=== PATIENT | male | born 1955 | race Caucasian/White ===

== ENCOUNTER 2020-07-10 15:30 | Outpatient (CLI) | payer OTHER, SELFPAY ==
[2020-07-10 15:54] LABS: Basophils Absolute Auto 0.1 K/mm3 (0.0-0.1); Basophils Percent Auto 1.2 % (0.2-1.2); Eosinophils Absolute Auto 0.3 K/mm3 (0-0.3); Eosinophils Percent Auto 4.6 % (0-4.4); Hematocrit 47.4 % (42.0-52.0); Hemoglobin 16.2 g/dL (14.0-18.0); Immature Granulocyte Absolute 0.02 K/mm3 (0.00-0.031); Immature Granulocyte Percent A 0.3 % (0-0.5); Lymphocytes Absolute Auto 1.87 K/mm3 (0.9-3.2); Lymphocytes Percent Auto 27.9 % (18.3-44.2); Mean Corpuscular HGB Conc 34.2 g/dl (32-36); Mean Corpuscular Hemoglobin 32.2 pg (26-34); Mean Corpuscular Volume 94.2 fl (80-100); Mean Platelet Volume 10.9 fl (7.4-10.4); Monocytes Absolute Auto 0.8 K/mm3 (0.1-0.6); Monocytes Percent Auto 11.9 % (2.6-8.5); Neutrophils Absolute Auto 3.6 K/mm3 (1.3-6.7); Neutrophils Percent Auto 54.1 % (45.5-73.1); Platelet Count Result 207 k/mm3 (150-375); Red Blood Count 5.03 M/mm3 (4.6-6.20); Red Cell Distribution Width 12.5 % (11.5-14.5); White Blood Count 6.7 K/mm3 (4.5-10.0)
[2020-07-10 16:03] LABS: Prothrombin Time 12.5 Seconds (11.1-14.7)
[2020-07-10 16:05] LABS: Alanine Aminotransferase 40 U/L (4-50); Albumin Level 4.2 g/dL (3.5-5.1); Alkaline Phosphatase 54 U/L (38-126); Anion Gap 7 mmol/L (8-16); Aspartate Amino Transferase 32 U/L (17-59); Bilirubin,Total 0.4 mg/dL (0.2-1.3); Blood Urea Nitrogen 18 mg/dL (9-20); Calcium 9.1 mg/dL (8.4-10.2); Carbon Dioxide 25 mmol/L (22-30); Chloride 105 mmol/L (98-107); Estimated Glomerular Filt Rate > 60; Glucose 119 mg/dL (75-110); Potassium 4.3 mmol/L (3.4-5.0); Sodium 137 mmol/L (137-145)
== END 2020-07-10 15:31 | disposition home or self-care (01) ==
LOC: ANHLAB 15:34
PROVIDERS: PCP Family Medicine; Visit Provider Internal Medicine Cardiovascular Disease
DX: I25.10 Atherosclerotic heart disease of native coronary artery without angina pectoris (principal); Z01.810 Encounter for preprocedural cardiovascular examination
CPT/HCPCS: 36415; 80053; 85025; 85610

== ENCOUNTER 2020-07-12 00:54 | Outpatient (CLI) | payer OTHER, SELFPAY ==
[2020-07-12 18:37] LABS: SARS-CoV-2 RNA PCR Negative
== END 2020-07-12 00:55 | disposition home or self-care (01) ==
LOC: ANHCOVIDDT 00:55
PROVIDERS: PCP Family Medicine; Visit Provider Internal Medicine Cardiovascular Disease
DX: Z01.818 Encounter for other preprocedural examination (principal); Z20.828 Contact with and (suspected) exposure to other viral communicable diseases
CPT/HCPCS: 87635; C9803; U0003

== ENCOUNTER 2020-07-14 09:00 | Outpatient (CLI) | payer OTHER, SELFPAY ==
--- NOTE | ~2020-07-14 | US_ITS ---
EXAMINATION: US venous doppler LE EXAM DATE: 07/14/2020 10:10 INDICATION: Varicose veins. TECHNIQUE: Multiple grayscale, color flow and Doppler images of the lower extremity deep venous syste ms bilaterally were obtained and reviewed. The exam was reviewed on 07/14/2020. There is no prior misty dy for comparison. FINDINGS: Right side: The right common femoral, femoral and profunda veins demonstrate normal color flow, respi ratory variation, augmentation and compressibility. Compressibility, color flow confirmed within the right popliteal, posterior tibial, peroneal, and greater saphenous veins. Right Standing Venous Mapping: reflux seconds duration; vein size. Greater saphenous origin: 0 seconds; 4.6 mm. Greater saphenous mid thigh:------ 0 seconds; 3.8 mm. Greater saphenous below knee:--- Greater than 4 seconds; 3.1 mm. Lesser saphenous proximally:------ 0 seconds; 2.3 mm. Lesser saphenous distally: 0 seconds; 1.8 mm. Left side: The left common femoral, femoral and profunda veins demonstrate normal color flow, respira tory variation, augmentation and compressibility. Compressibility, color flow confirmed within the l eft popliteal, posterior tibial, peroneal, and greater saphenous veins. Left Standing Venous Mapping: reflux seconds duration; vein size. Greater saphenous origin: 0 seconds; 9.3 mm. Greater saphenous mid thigh:------ 0 seconds; 4.7 mm. Greater saphenous below knee:--- 1.5 seconds; 3.3 mm. Lesser saphenous proximally:------ 0 seconds; 3.7 mm. Lesser saphenous distally: 0 seconds; 3.0 mm. IMPRESSION: 1. No lower extremity deep venous thrombosis bilaterally. 2. Positive for bilateral below knee greater saphenous venous reflux. Reviewed, dictated and finalized at location B.
== END 2020-07-14 09:01 | disposition home or self-care (01) ==
PROVIDERS: PCP Family Medicine; Visit Provider Internal Medicine Cardiovascular Disease
DX: M79.89 Other specified soft tissue disorders (principal)
CPT/HCPCS: 93970

== ENCOUNTER 2020-07-15 05:20 | Day surgery (SDC) | payer OTHER, SELFPAY ==
[2020-07-14 12:35] VITALS: BMI 44.9
[2020-07-15] VITALS (13 sets, daily range): BP systolic 93–137; BP diastolic 54–75; PULSE 59–97; RESP 14–18; TEMP 36.6; O2SAT 91–100; BMI 47.4
[2020-07-15] MEDS: SODIUM CHLORIDE 0.9% IV 500 ML 100 ML IV CONT ×2 (08:00→13:00)
--- NOTE | 2020-07-15 09:22 | WPDMODSED ---
Moderate Sedation Note-Pt Data Patient Data Allergies Allergy/AdvReac Type Severity Reaction Status Date / Time No Known Allergies Allergy Verified 09/14/19 15:38 Home Medications Medication Instructions Recorded Confirmed Type amlodipine 10 mg tablet 10 mg PO DAILY 11/23/19 07/14/20 History aspirin 81 mg tablet,delayed 81 mg PO DAILY 11/23/19 07/14/20 History release atorvastatin 80 mg tablet 80 mg PO DAILY 11/23/19 07/14/20 History finasteride 5 mg tablet 5 mg PO DAILY 11/23/19 07/14/20 History lisinopril 40 mg tablet 40 mg PO DAILY 11/23/19 07/14/20 History triamcinolone acetonide 0.1 % 1 applic TOPICAL BID #80 gm 12/07/19 07/14/20 Rx topical cream umeclidinium 62.5 mcg-vilanterol 1 inhalation INHALATION Q24H #180 06/16/20 07/14/20 Rx 25 mcg/actuation powdr for each inhalation Current Medications: Active Medications Sodium Chloride (Normal Saline Iv) 500 mls @ 100 mls/hr IV CONT .Q5H ADWOA Sedation/Anesthesia: No previous sedation/anesthesia problems (including family history). COUNT INCLUDES THE [facility] Past Medical History Medical History 2nd degree AV block CAD (coronary artery disease) Chronic obstructive pulmonary disease, unspecified Cough Eczema HLD (hyperlipidemia) HTN (hypertension) IFG (impaired fasting glucose) Pacemaker Tobacco use Surgical History Surgical History (Updated 09/14/19 @ 15:38 by Fay Ochoa) History of carpal tunnel release S/P appendectomy S/P coronary artery stent placement S/P hip replacement Status post lumbar surgery Family History Family History (System 09/14/19 @ 15:38 by Fay Ochoa) Sibling Hypertension Family history of coronary artery disease Mother Carcinoma of colon Other Family history of arthritis Social History Social History (Updated 12/07/19 @ 09:31 by Alise Brewster [facility]) Years smoked: 45 Smoking status: Current every day smoker Tobacco type: cigarettes Smoking end date: 10/24/12 Alcohol intake: never Substance use: never Living arrangements: with family Spiritual care concerns: No Mod Sed Physical Exam Physical Exam Pre Procedural Exam: Normal: Airway Hours since solid foods: 10 Hours since liquid intake: 10 Internal Medicine - PN: Obj Da Vital Signs Vital Signs: Vital Signs - 24 hr 07/15/20 09:15 Temperature 36.6 C Pulse Rate 81 Respiratory Rate 17 Blood Pressure 137/72 Pulse Oximetry 98 Meds/Results Medications: Active Medications Generic Name Dose Route Start Last Admin Trade Name Freq PRN Reason Stop Dose Admin Sodium Chloride 500 mls @ 100 mls/hr 07/15/20 06:00 Normal Saline Iv IV CONT .Q5H ADWOA Labs CBC & Chem 7: 07/15/20 09:11 07/15/20 09:11 ASA Classification/Sedation ASA Classification/Sedation Risks: Risks, benefits and alternatives explained and patient/family accepted plan for sedation. Patient re-evaluated immediately prior to sedation.
--- NOTE | 2020-07-15 09:23 | WPDHPUPDATE1 ---
History and Physical Update Update Date/Time: 07/15/20 09:23 History and Physical has been reviewed, including an updated exam of the patient. There are NO changes in the patient's condition. Risks, benefits, and alternatives have been discussed and questions answered. Patient agrees to proceed with procedure.
[2020-07-15 09:25] LABS: Basophils Absolute Auto 0.1 K/mm3 (0.0-0.1); Basophils Percent Auto 1.2 % (0.2-1.2); Eosinophils Absolute Auto 0.2 K/mm3 (0-0.3); Eosinophils Percent Auto 3.2 % (0-4.4); Hematocrit 49.6 % (42.0-52.0); Hemoglobin 16.8 g/dL (14.0-18.0); Immature Granulocyte Absolute 0.03 K/mm3 (0.00-0.031); Immature Granulocyte Percent A 0.4 % (0-0.5); Lymphocytes Percent Auto 26.1 % (18.3-44.2); Mean Corpuscular HGB Conc 33.9 g/dl (32-36); Mean Corpuscular Hemoglobin 31.9 pg (26-34); Mean Corpuscular Volume 94.1 fl (80-100); Monocytes Absolute Auto 0.6 K/mm3 (0.1-0.6); Monocytes Percent Auto 8.1 % (2.6-8.5); Neutrophils Absolute Auto 4.4 K/mm3 (1.3-6.7); Platelet Count Result 213 k/mm3 (150-375); Red Blood Count 5.27 M/mm3 (4.6-6.20); Red Cell Distribution Width 12.7 % (11.5-14.5); White Blood Count 7.3 K/mm3 (4.5-10.0)
[2020-07-15 09:35] LABS: Anion Gap 7 mmol/L (8-16); Blood Urea Nitrogen 15 mg/dL (9-20); Calcium 9.8 mg/dL (8.4-10.2); Carbon Dioxide 28 mmol/L (22-30); Chloride 103 mmol/L (98-107); Estimated CRCL calculation 130 ml/min; Estimated Glomerular Filt Rate > 60; Glucose 108 mg/dL (75-110); Potassium 4.3 mmol/L (3.4-5.0); Sodium 138 mmol/L (137-145)
[2020-07-15 09:39] LABS: INR 0.9; Prothrombin Time 12.1 Seconds (11.1-14.7)
--- NOTE | 2020-07-15 11:03 | WPDCARDPROC ---
Cardiac Cath Procedure Note Date of procedure:: 07/15/20 Performing physician:: Arya Ambrocio MD Procedure Procedure note:: CARDIAC CATHETERIZATION AND PERCUTANEOUS CORONARY INTERVENTION REPORT DATE OF PROCEDURE: 07/15/2020 INDICATION FOR PROCEDURE: CHF with reduced ejection fraction, CAD, history of PCI/stenting BRIEF CLINICAL HISTORY: 65-year-old morbidly obese male with CAD, history of non ST elevation [place], status post PTCA/ ALISON proximal LCX on 06/17/2013; AV block status post Saint Humberto dual-chamber pacemaker placement on 11/04/2017, dyslipidemia, DJD, tobacco abuse. Patient has been experiencing dyspnea on mild exertion. His echocardiogram from 07/08/2020 showed severe LV systolic dysfunction, EF 30-35% with hypokinesis of inferior and inferolateral segments and akinesis of apical segment, mid anteroseptum, apical septum. Due to worsening LV function and patient's symptoms, cardiac catheterization was recommended to re-evaluate coronary anatomy and rule out InStent restenosis. Benefits and risks of the procedure were discussed with the patient in depth, and informed consent was obtained prior to the procedure. Risks of the procedure include but are not limited to vascular complications including groin hematoma, retroperitoneal bleed, vessel perforation; periprocedural HI, cardiac arrhythmias, stroke, contrast induced nephropathy, and . After discussing all the benefits, risks and alternatives, patient was willing to proceed with the procedure. PROCEDURES PERFORMED: 1. Left heart catheterization- Selective left and right coronary angiogram; left ventriculogram and hemodynamic assessment 2. Percutaneous coronary intervention- a) IFR of mid -distal dominant left circumflex artery b) intravascular ultrasound (IVUS) of proximal and mid left circumflex artery c) IFR and IVUS guided intervention-balloon angioplasty and stenting of mid-distal left circumflex artery using a 4.0 x 18 mm Biotronik sirolimus eluting stent; balloon angioplasty of InStent restenosis of ostial-proximal LCX. 3. Selective right common femoral angiogram and deployment of Angio-Seal hemostatic device 4. Moderate sedation-CPT code 64661 MODERATE SEDATION: Midazolam 2 mg; fentanyl 50 mcg. Start time 0935 , Stop time 1055 ; Total aznt-rg-memz time 80 minutes; Josie Iqbal RN was trained observer for moderate sedation. ACCESS SITE: Right common femoral artery PROCEDURE NOTE: After obtaining informed consent, patient was brought to catheterization lab and prepped and draped in a usual sterile manner. After local anesthesia with lidocaine, right common femoral artery access was taken with micropuncture needle followed by insertion of a 5 Wolof sheath. Selective left and right coronary angiogram was performed using 5 Wolof JL4 and JR4 catheters respectively. Orthogonal views were taken. Next, a 5 Wolof pigtail catheter was advanced in the LV cavity and was flushed with normal saline. LV pressure measurement was performed. After this, left ventriculogram was performed. The catheter was flushed again, and gradient across the aortic valve was measured on the pullback of the catheter. Selective right common femoral angiogram was performed after PCI followed by successful deployment of Angio-Seal vascular closure device. Patient tolerated procedure well without any immediate procedure related complications. FINDINGS: LEFT MAIN CORONARY: the left main coronary artery is a large caliber vessel, no significant focal stenosis seen. The vessel bifurcates into LAD and left circumflex branches. LEFT ANTERIOR DESCENDING ARTERY: The LAD is a medium caliber vessel, previously placed stent in the mid segment is patent without significant normal os. The vessel tapers distally, B Kamysz small caliber in the distal segment and wraps LV apex. Major diagonal branch is a large-sized vessel with minor irregularities. LEFT CIRCUMFLEX ARTERY: The left circumflex artery is l
--- NOTE | 2020-07-15 11:10 | ECG_ITS ---
Measurements Intervals [place] Rate: 60 P: 207 RI: 243 QRS: -80 QRSD: 215 T: 105 QT: 508 QTc: 508 Interpretive Statements ELECTRONIC ATRIAL PACEMAKER ELECTRONIC VENTRICULAR PACEMAKER BASELINE ARTIFACT- I, AVR, V1-V3 NO FURTHER INTERPRETATION IS POSSIBLE ATYPICAL ECG Electronically Signed On 07-15-2020 12:12:54 CDT by Govind Dahl D.O.
--- NOTE | 2020-07-15 13:15 | ADMGEN ---
This patient, Miguel Yeh, was admitted to [facility] Patient/family oriented to hospital policies and general routines including ID bracelet, bed and alarms, visiting hours, pain management, procedures, bathroom and other care routines, personal items, smoking policy, room service/diet, and visiting hours. Valuables list has been completed. Information on how to activate the Rapid Response Team has been discussed. Patient/Family are encouraged to report perceived risks to care and to ask questions if they do not understand what they are told or what they should do.
[2020-07-15] MEDS: ACETAMINOPHEN 500 MG TABLET 1000 MG PO (14:31)
[2020-07-15] MEDS: carvediloL 3.125 MG TABLET PO (19:51)
[2020-07-15] MEDS: TICAGRELOR 90 MG TABLET PO (19:51)
[2020-07-15] MEDS: MELATONIN 3 MG TABLET PO (21:22)
[2020-07-16] VITALS (7 sets, daily range): BP systolic 100–115; BP diastolic 60–66; PULSE 60–76; RESP 14–21; TEMP 36.1; O2SAT 98–100
[2020-07-16] MEDS: ASPIRIN 81 MG ENTERIC TABLET PO (07:49)
[2020-07-16] MEDS: ATORVASTATIN 40 MG TABLET 80 MG PO (07:49)
[2020-07-16] MEDS: TICAGRELOR 90 MG TABLET PO (07:49)
[2020-07-16] MEDS: lisinopriL 20 MG TABLET PO (07:49)
[2020-07-16] MEDS: carvediloL 3.125 MG TABLET PO (07:50)
[2020-07-16] MEDS: FINASTERIDE 5 MG TABLET PO (07:50)
--- NOTE | 2020-07-16 09:20 | PM.DS ---
DS: Admitting Diagnosis Admitting Diagnosis Admitting Diagnosis: Decreased Ejection Fraction DS: Discharge Diagnosis Discharge Diagnosis (1) CAD (coronary artery disease): Code(s): I25.10 - Atherosclerotic heart disease of [place] coronary artery without angina pectoris Status: Acute Assessment and Plan: Cardiac catheterization 07/15/2020. See results below. Status post drug-eluting stent to mid to distal circumflex. DS: Summary Hospital Course Reason for hospitalization: Cardiac catheterization to evaluate coronary anatomy due to reduced ejection fraction on echocardiogram Hospital Course: 65-year-old morbidly obese male with CAD, history of non ST elevation [place], status post PTCA/ ALISON proximal LCX on 06/17/2013; AV block status post Saint Humberto dual-chamber pacemaker placement on 11/04/2017, dyslipidemia, DJD, tobacco abuse. He had been experiencing dyspnea on mild exertion. His echocardiogram from 07/08/2020 showed severe LV systolic dysfunction, EF 30-35% with hypokinesis of inferior and inferolateral segments and akinesis of apical segment, mid anteroseptum, apical septum. Due to worsening LV function and patient's symptoms, cardiac catheterization was recommended to re-evaluate coronary anatomy and rule out InStent restenosis. He was taken the cardiac catheterization lab by Dr Ambrocio on 07/15/2020 with a significant findings of: [id number] InStent restenosis ostial-proximal LCX; 60-70% stenosis in the mid-distal segment distal to the ectatic mid segment (iFR 0.86); patent previously placed mid LAD stent; non dominant RCA with moderate 50-60% stenosis in the proximal section. LV enlargement with severe LV systolic dysfunction; inferior wall hypokinesis; LVEF 25-30%; LVEDP 15 mmHg. He proceeded on to IFR and intravascular ultrasound-guided PCI-balloon angioplasty of proximal LCX; balloon angioplasty and stenting of mid-distal LCX using a Biotronik 4.0 x 18 mm Sirolimus eluting stent. He experienced some shortness of breath after the procedure which resolved on its own. He was monitored overnight. No chest discomfort or shortness of breath. Right groin site was without swelling or bleeding. No femoral bruit. Distal pulses intact. Long discussion regarding smoking cessation. He would like to try Wellbutrin along with possibly the nicotine patch. He was instructed that he would not be able to smoke if he used the nicotine patch along with the Wellbutrin. He and his verbalized an understanding. No history of seizures, depression or thoughts of suicide. His will also try to stop smoking. He was discharged home in stable and pain-free condition. Time spent discussing smoking cessation with patient: more than 10 minutes Status at Discharge Functional status at discharge: independent ambulation Overall status at discharge: patient is back to baseline Time Spent with Patient Time attestation: Total time spent providing and/or coordinating discharge services: 20 minutes in the room discussing smoking cessation, aids for smoking cessation, techniques for smoking cessation, exercise, activity restriction and follow-up appointments. 10 minutes to do discharge order. 15 minutes to do discharge summary. Total time: 45 minutes. Time spent: Greater than 30 minutes Exam Narrative: Exam Narrative: General: Well-developed Obese male in no distress. HEENT: Mucous Membranes Moist and [place], Nares Patent, Sclera Clear, No: epistaxis Neck: Supple, No: JVD Respiratory: Fine bibasilar crackles, Normal Air Movement, Respirations even and nonlabored Cardiovascular: Regular Rate, Regular Rhythm, No murmurs, clicks or rubs Cath Puncture Site: Right groin site without redness, drainage, swelling or bleeding. No femoral bruit. Distal pulses intact GI: Abdomen obese,soft, Bowel sounds positive Extremities: Normal Pulses, No Edema Integumentary: No Abnormalities Musculoskeletal: No o
--- NOTE | 2020-07-16 09:44 | PC.NURSE ---
Pt given D/C orders and instructions. Questions answered and verbalized understanding. AOx4. PIV removed intact. Groin soft and non-tender, no evidence of bleeding or hematoma noted. Weak right pedal pulse noted. Taken via wheelchair to waiting vehicle. No distress noted or verbalized at time of departure.
== END 2020-07-16 09:30 | disposition home or self-care (01) ==
LOC: ANHCATHLAB 09:00 → ANHCPC 12:32
PROVIDERS: PCP Family Medicine; Visit Provider Internal Medicine Cardiovascular Disease
PROC: 4A023N7 Measurement of Cardiac Sampling and Pressure, Left Heart, Percutaneous Approach (ICD-10-PCS; CPT 93452; principal; 2020-07-15 10:00)
PROC: 4A033BC Measurement of Arterial Pressure, Coronary, Percutaneous Approach (ICD-10-PCS; CPT 93571; 2020-07-15 10:00)
PROC: (CPT 92928; 2020-07-15 10:00)
DX: R93.1 Abnormal findings on diagnostic imaging of heart and coronary circulation (principal); I50.20 Unspecified systolic (congestive) heart failure; I44.1 Atrioventricular block, second degree; I25.10 Atherosclerotic heart disease of native coronary artery without angina pectoris; T82.855A Stenosis of coronary artery stent, initial encounter; Y83.8 Other surgical procedures as the cause of abnormal reaction of the patient, or of later complication, without mention of misadventure at the time of the procedure; Z95.0 Presence of cardiac pacemaker; Z95.5 Presence of coronary angioplasty implant and graft; J44.9 Chronic obstructive pulmonary disease, unspecified; I11.0 Hypertensive heart disease with heart failure; E78.5 Hyperlipidemia, unspecified; Z79.82 Long term (current) use of aspirin; F17.210 Nicotine dependence, cigarettes, uncomplicated
CPT/HCPCS: 36415; 80048; 85025; 85610; 92978; 93005; 93458; 93571; A9270; C1725; C1753; C1760; C1769; C1874; C1887; C1894; C9600; G0269; J0583; J1644; J2250; J3010; J7040

== ENCOUNTER 2020-07-16 19:41 | Inpatient (IN) | payer OTHER, SELFPAY ==
[2020-07-16] VITALS (7 sets, daily range): BP systolic 104–147; BP diastolic 70–86; PULSE 75–88; RESP 15–32; TEMP 36.8; O2SAT 86–98
--- NOTE | ~2020-07-16 | CT_ITS ---
EXAMINATION: CTA chest PE protocol DATE: 07/16/2020 21:27 INDICATION: Shortness of breath TECHNIQUE: Computed tomography angiography (CTA) of the chest was performed with 100 mL Omnipaque-350 intravenous contrast timed to evaluate the pulmonary arteries. Coronal maximum intensity projection 3D-reconstructions were created by the technologist. The dose-length product (DLP) was 1122.01 mGy-cm . Automated exposure control and iterative reconstruction technique were employed. COMPARISON: None. FINDINGS: The pulmonary arteries are well-opacified. No pulmonary embolism is identified. There are s mall pleural effusions. There is smooth interlobular septal thickening with a lower lung zone predomi nance. Mild atelectasis is noted. There is a 9 mm left upper lobe nodule on image 38. There is a 5 mm nodule of the right lower lobe. There is mild bilateral hilar and mediastinal lymphadenopathy. A alexandrea l-lead pacemaker of the left chest wall ends with its in expected positions. The heart size is normal . There is no pneumothorax. There are bridging osteophytes at multiple levels in the spine, consisten t with diffuse idiopathic skeletal hyperostosis (DISH). IMPRESSION: 1. No pulmonary embolism or acute cardiopulmonary abnormality. 2. Mild pulmonary edema. 3. Lung nodules measuring up to 9 mm. Follow-up CT in 3-6 months is recommended. Reviewed, dictated and finalized at location A. IMPRESSION: 1. No pulmonary embolism or acute cardiopulmonary abnormality. 2. Mild pulmonary edema. 3. Lung nodules measuring up to 9 mm. Follow-up CT in 3-6 months is recommended .
--- NOTE | ~2020-07-16 | XR_ITS ---
EXAMINATION: XR chest 2V DATE: 07/16/2020 20:40 INDICATION: Shortness of breath and diaphoresis TECHNIQUE: PA and lateral views of the chest are obtained. COMPARISON: 07/24/2018 FINDINGS: The lungs are free of acute opacities. There is no pleural effusion or pneumothorax. The ca rdiomediastinal silhouette is normal. There is moderate thoracic spondylosis. A dual-lead cardiac pac emaker of the left chest wall ends with leads in expected locations. IMPRESSION: 1. No acute cardiopulmonary abnormality. Reviewed, dictated and finalized at location A.
--- NOTE | 2020-07-16 19:54 | ECG_ITS ---
Measurements Intervals [place] Rate: 95 P: [place]: 0 QRS: -77 QRSD: 193 T: 89 QT: 427 QTc: 539 Interpretive Statements ATRIAL SENSE- ELECTRONIC VENTRICULAR PACEMAKER BASELINE ARTIFACT- I, II, III, AVR, AVL, AVF, V1-V6 NO FURTHER INTERPRETATION IS POSSIBLE ATYPICAL ECG Electronically Signed On 07-17-2020 6:56:14 CDT by Govind Dahl D.O.
[2020-07-16 20:08] LABS: Basophils Absolute Auto 0.1 K/mm3 (0.0-0.1); Basophils Percent Auto 0.3 % (0.2-1.2); Eosinophils Percent Auto 0.2 % (0-4.4); Hematocrit 47.9 % (42.0-52.0); Hemoglobin 16.2 g/dL (14.0-18.0); Immature Granulocyte Absolute 0.09 K/mm3 (0.00-0.031); Immature Granulocyte Percent A 0.5 % (0-0.5); Lymphocytes Absolute Auto 1.65 K/mm3 (0.9-3.2); Lymphocytes Percent Auto 8.9 % (18.3-44.2); Mean Corpuscular HGB Conc 33.8 g/dl (32-36); Mean Corpuscular Volume 94.5 fl (80-100); Mean Platelet Volume 11.1 fl (7.4-10.4); Monocytes Absolute Auto 1.7 K/mm3 (0.1-0.6); Monocytes Percent Auto 9.3 % (2.6-8.5); Neutrophils Absolute Auto 14.9 K/mm3 (1.3-6.7); Neutrophils Percent Auto 80.8 % (45.5-73.1); Platelet Count Result 234 k/mm3 (150-375); Red Blood Count 5.07 M/mm3 (4.6-6.20); Red Cell Distribution Width 12.8 % (11.5-14.5); White Blood Count 18.5 K/mm3 (4.5-10.0)
--- NOTE | 2020-07-16 20:14 | ED.SOB ---
HPI - SOB/Dyspnea General Chief Complaint: Chest Pain Stated Complaint: sob Time Seen by Provider: 07/16/20 19:54 History of Present Illness HPI Narrative: Pt c/o sob, started today, had cardiac cath yesterday with stent placement and discharged today. Pt denies any chest pain, abd pain, n/v or fever. Related Data Home Medications Medication Instructions Recorded Confirmed aspirin 81 mg tablet,delayed 81 mg PO DAILY 11/23/19 07/14/20 release atorvastatin 80 mg tablet 80 mg PO DAILY 11/23/19 07/14/20 finasteride 5 mg tablet 5 mg PO DAILY 11/23/19 07/14/20 Allergies Allergy/AdvReac Type Severity Reaction Status Date / Time No Known Allergies Allergy Verified 09/14/19 15:38 Review of Systems Review of Systems: All systems reviewed & are unremarkable except as noted in HPI and below Constitutional: Constitutional: Denies body ache(s), Denies chills, Denies excessive sweating, Denies fatigue, Denies fever(s), Denies headache(s), Denies lethargy, Denies malaise, Denies weakness and Denies weight loss Eyes: Eyes: Denies blurry vision, Denies change in vision and Denies loss of vision ENT: Denies dizziness, Denies ear discharge, Denies headache(s), Denies lip swelling, Denies epistaxis, Denies nasal congestion, Denies neck pain, Denies throat swelling and Denies tongue swelling Cardiovascular: Cardiovascular: Denies chest pain, Denies chest pain at rest, Denies chest pain with activity, Denies diaphoresis, Denies rapid heart rate, Denies edema, Denies irregular heart rhythm, Denies lightheadedness, Denies palpitations, Denies dyspnea and Denies dyspnea on exertion Respiratory: Respiratory: Denies chest congestion, Denies cough and Denies hemoptysis Gastrointestinal: Gastrointestinal: Denies abdominal pain, Denies melena, Denies hematochezia, Denies diarrhea, Denies nausea, Denies vomiting and Denies hematemesis Musculoskeletal: Musculoskeletal: Denies abnormal gait, Denies deformity, Denies joint swelling, Denies limited range of motion, Denies neck pain and Denies numbness Neurologic: Denies Abnormal speech present, Denies abnormal gait, Denies confusion, Denies dizziness, Denies headache(s), Denies focal weakness, Denies loss of vision, Denies numbness, Denies Other visual disturbances, Denies Sensory deficit (Neuro) and Denies weakness Psychiatric: Psychiatric: Denies confusion, Denies depression, Denies auditory hallucinations, Denies homicidal ideation and Denies suicidal ideation Endocrine: Endocrine: Denies cold intolerance, Denies excessive sweating, Denies fatigue, Denies heat intolerance and Denies palpitations Hematologic/Lymphatic: Hematologic/Lymphatic: Denies easy bleeding and Denies easy bruising Allergic/Immunologic: Allergic/Immunologic: Denies lip swelling, Denies throat swelling and Denies tongue swelling [facility] Past Medical History Medical History 2nd degree AV block CAD (coronary artery disease) Chronic obstructive pulmonary disease, unspecified Cough Eczema HLD (hyperlipidemia) HTN (hypertension) IFG (impaired fasting glucose) Pacemaker Tobacco use Surgical History Surgical History (Updated 09/14/19 @ 15:38 by Fay Ochoa) History of carpal tunnel release S/P appendectomy S/P coronary artery stent placement S/P hip replacement Status post lumbar surgery Family History Family History (System 09/14/19 @ 15:38 by Fay Ochoa) Sibling Hypertension Family history of coronary artery disease Mother Carcinoma of colon Other Family history of arthritis Social History Social History (Updated 12/07/19 @ 09:31 by Alise Brewster [facility]) Years smoked: 45 Smoking status: Current every day smoker Tobacco type: cigarettes Second hand tobacco smoke exposure: Yes Smoking end date: 10/24/12 Alcohol intake: never Substance use: never Substance use type: does not use Gender identity (if verbalized by the patient): Male Spiritual care concerns: No
[2020-07-16 20:20] LABS: Anion Gap 10 mmol/L (8-16); Blood Urea Nitrogen 26 mg/dL (9-20); Calcium 9.8 mg/dL (8.4-10.2); Carbon Dioxide 25 mmol/L (22-30); Chloride 101 mmol/L (98-107); Estimated CRCL calculation 105 ml/min; Estimated Glomerular Filt Rate > 60; Glucose 140 mg/dL (75-110); Potassium 4.5 mmol/L (3.4-5.0); Sodium 136 mmol/L (137-145)
[2020-07-16 20:39] LABS: NT Pro B Type Natriuretic Pept 2660 PG/ML (5-100); Troponin I > 80.000 ng/mL (0.000-0.034)
[2020-07-16] MEDS: ASPIRIN 81 MG CHEWABLE TABLET 324 MG PO (20:46)
[2020-07-16 21:22] LABS: Partial Thromboplastin Time 28.9 SECONDS (22.3-36.8); Prothrombin Time 13.2 Seconds (11.1-14.7)
[2020-07-16 21:24] LABS: Lactic Acid Reflex 1.5 mmol/L (0.7-2.1)
[2020-07-16 21:29] LABS: D Dimer 0.45 ug/mL (<0.48)
[2020-07-16 22:22] LABS: Add Urine Microscopic? YES; Appearance Urine Clear (Clear); Bacteria Urine Trace /hpf; Bilirubin Urine Negative (Negative); Blood Urine Negative (Negative); Color Urine Yellow (Yellow); Glucose Urine UA Negative (Negative); Ketones Urine Negative (Negative); Leukocyte Esterase Ur Negative LEU/UL (Negative); Mucus Urine Few /lpf; Nitrate Urine Negative (Negative); Protein Urine 1+ mg/dL (Negative); RBC Urine 0-2 /hpf (0-2); Urobilinogen Urine Negative mg/dL (<2.0); WBC Urine 0-3 /hpf
[2020-07-16 22:35] LABS: Specific Grav Ur > 1.060 (1.001-1.035)
[2020-07-16] MEDS: IPRATROPIUM BR 0.02% INH SOLN 0.5 MG/2.5 ML VIAL INHALATION (23:29)
[2020-07-16] MEDS: ALBUTEROL SULFATE NEB 2.5 MG/0.5 ML INH 5 MG INHALATION (23:29)
[2020-07-16] MEDS: FUROSEMIDE INJ 40 MG/4 ML VIAL IV PUSH (23:39)
[2020-07-17] VITALS (23 sets, daily range): BP systolic 92–119; BP diastolic 52–82; PULSE 52–87; RESP 16–22; TEMP 36.1–36.9; O2SAT 92–98; BMI 47.1; BMI 47.3
--- NOTE | 2020-07-17 | ECHO_ITS ---
Patient Info Name: Miguel Yeh Age: 65 years : 1955 Gender: Male Ht: 73 in Wt: 355 lbs BSA: 2.96 m2 HR: 68 bpm BP: 98 / 67 mmHg Heart Rhythm: Paced Technical Quality: Poor Exam Date: 07/17/2020 1:34 PM Exam Location: [facility] Pulmonary Patient Status: Inpatient Admit Date: 07/17/2020 Staff Ordering Physician: Zan Yeung MD Saw Edge Fuser Circular: Velma Lee RDCS Attending Provider: Brigida Nolan PA-C Referring Physician: Anjana VALENTIN; Exam Type: CA echo dop color flow w con Study Info Indications R06.02 - Shortness of breath Complete two-dimensional, color flow and Doppler transthoracic echocardiogram is performed with contrast to opacify the left ventricle and to improve the deliniation of the left ventricle endocardial borders. Contrast/Agitated Saline Contrast/Ag. Saline: Definity Amount: 3.00 ml Administered By: Mary Oswald RN Existing IV Access: Yes IV Access Condition: patent with no signs of infiltration Reason for Poor Study: patient body habitus Summary 1. Left ventricular chamber dimension is moderately enlarged. 2. Left ventricular systolic function is moderately reduced, estimated at 35-40%. 3. There is mildly increased left ventricular wall thickness. 4. Left ventricular septal wall motion is abnormal with septal motion related to pacing. 5. The left ventricular diastolic function is grade II diastolic dysfunction. 6. The basal inferolateral wall, and mid inferolateral wall are akinetic. 7. The basal inferior wall, mid inferior wall, basal inferoseptal, and mid inferoseptal are hypokinetic. 8. Right ventricular chamber dimension is mildly enlarged. 9. Right ventricular systolic function is reduced. 10. Left atrial chamber dimension is mildly enlarged. 11. There is mild to moderate mitral valve regurgitation. 12. There is mild tricuspid valve regurgitation. 13. Mild pulmonary hypertension, estimated pulmonary arterial systolic pressure is 42 mmHg. Left Ventricle Left ventricular chamber dimension is moderately enlarged. Left ventricular systolic function is moderately reduced, estimated at 35-40%. There is mildly increased left ventricular wall thickness. Left ventricular septal wall motion is abnormal with septal motion related to pacing. The left ventricular diastolic function is grade II diastolic dysfunction. The basal inferolateral wall, and mid inferolateral wall are akinetic. The basal inferior wall, mid inferior wall, basal inferoseptal, and mid inferoseptal are hypokinetic. All other smith appear normal. Right Ventricle Right ventricular chamber dimension is mildly enlarged. Right ventricular systolic function is reduced. Left Atria Left atrial chamber dimension is mildly enlarged. Right Atria Right atrial chamber dimension is normal. Atrial Septum Intact interatrial septum visualized by color flow imaging. Aortic Valve The aortic valve is trileaflet. There is mild aortic valve sclerosis. There is no aortic valve stenosis. There is trace aortic valve regurgitation. Pulmonic Valve The pulmonic valve is normal. There is no pulmonic valve stenosis. There is trace pulmonic regurgitation. Mitral Valve The mitral valve has calcified annulus. There is no mitral valve stenosis. There is mild to moderate mitral valve regurgitation. Tricuspid Valve The tricuspid valve leaflets are normal. There is no significant tricuspid valve stenosis.
--- NOTE | 2020-07-17 00:37 | ADMGEN ---
This patient, Miguel Yeh, was admitted to IMU Room 207-01 at 0022. Patient/family oriented to hospital policies and general routines including ID bracelet, bed and alarms, visiting hours, pain management, procedures, bathroom and other care routines, personal items, smoking policy, room service/diet, and visiting hours. Valuables list has been completed. Information on how to activate the Rapid Response Team has been discussed. Patient/Family are encouraged to report perceived risks to care and to ask questions if they do not understand what they are told or what they should do.
--- NOTE | 2020-07-17 06:13 | PC.NURSE ---
07/17/20: patient keeps turning up oxygen. feels like he is not getting enough. had to explain that he is not to touch oxygen. he doesn't need more oxygen.
[2020-07-17 07:36] LABS: Basophils Percent Auto 0.3 % (0.2-1.2); Hematocrit 40.8 % (42.0-52.0); Hemoglobin 13.9 g/dL (14.0-18.0); Immature Granulocyte Absolute 0.04 K/mm3 (0.00-0.031); Immature Granulocyte Percent A 0.3 % (0-0.5); Lymphocytes Absolute Auto 1.19 K/mm3 (0.9-3.2); Lymphocytes Percent Auto 9.1 % (18.3-44.2); Mean Corpuscular HGB Conc 34.1 g/dl (32-36); Mean Corpuscular Hemoglobin 32.4 pg (26-34); Mean Corpuscular Volume 95.1 fl (80-100); Mean Platelet Volume 11.2 fl (7.4-10.4); Monocytes Absolute Auto 1.2 K/mm3 (0.1-0.6); Monocytes Percent Auto 9.1 % (2.6-8.5); Neutrophils Absolute Auto 10.7 K/mm3 (1.3-6.7); Neutrophils Percent Auto 81.2 % (45.5-73.1); Platelet Count Result 170 k/mm3 (150-375); Red Blood Count 4.29 M/mm3 (4.6-6.20); Red Cell Distribution Width 12.8 % (11.5-14.5); White Blood Count 13.1 K/mm3 (4.5-10.0)
[2020-07-17 07:49] LABS: Alanine Aminotransferase 112 U/L (4-50); Albumin Level 3.8 g/dL (3.5-5.1); Alkaline Phosphatase 49 U/L (38-126); Anion Gap 4 mmol/L (8-16); Aspartate Amino Transferase 333 U/L (17-59); Bilirubin,Total 1.1 mg/dL (0.2-1.3); Blood Urea Nitrogen 25 mg/dL (9-20); Calcium 9.1 mg/dL (8.4-10.2); Carbon Dioxide 29 mmol/L (22-30); Chloride 101 mmol/L (98-107); Estimated CRCL calculation 105 ml/min; Estimated Glomerular Filt Rate > 60; Glucose 124 mg/dL (75-110); Potassium 4.3 mmol/L (3.4-5.0); Sodium 134 mmol/L (137-145)
[2020-07-17] MEDS: FUROSEMIDE INJ 40 MG/4 ML VIAL IV PUSH ×2 (08:23→16:41)
[2020-07-17] MEDS: ASPIRIN 81 MG ENTERIC TABLET PO (08:24)
[2020-07-17] MEDS: ATORVASTATIN 40 MG TABLET 80 MG PO (08:24)
[2020-07-17] MEDS: carvediloL 3.125 MG TABLET PO ×2 (08:25→20:58)
[2020-07-17] MEDS: lisinopriL 20 MG TABLET PO (08:25)
[2020-07-17] MEDS: FINASTERIDE 5 MG TABLET PO (08:25)
[2020-07-17] MEDS: TICAGRELOR 90 MG TABLET PO ×2 (08:25→20:58)
--- NOTE | 2020-07-17 08:29 | PM.IMHP ---
H&P: HPI History of Present Illness Date/Time: 07/17/20 05:00 Chief complaint: Shortness of breath Narrative: Miguel Yeh is a 65 year old male with a past medical history of coronary artery disease, diastolic and systolic congestive heart failure and COPD who presented to the ER with shortness of breath. He reported that he was actually going to the employee benefits attorney and had mention the possibility of having weight loss surgery which resulted in him having an echocardiogram. His echocardiogram was abnormal and he subsequently went for cardiac catheterization. The patient had been admitted to the hospital on 07/16/2020 for cardiac catheterization where he had a angioplasty of InStent stenosis of prior lipase left circumflex stent and a new stent also to the more distal left circumflex. The patient reported that post catheterization he was having significant shortness of breath and was asking for oxygen and medications to calmed him down so he did sleep with shortness of breath. He stated that he let staff know that he was short of breath prior to being discharged on the . He was home about 6 hours when his shortness of breath became so severe that he was in respiratory distress even at rest. He got up to try to go to the bathroom intake shower in could not make it to bathroom. If you sat down his shortness breath would be better but then he again tried to get up and completed task and could not do so. He became markedly diaphoretic and stated I thought it was going to be the end. he subsequently had his drive him to the ER. When he arrived in the ER his oxygen saturations were 86% on room air. he denied having any chest pain or palpitations. However labs performed in the ER demonstrated a troponin greater than 80. The patient has chronic lower extremity and edema. His lower extremity edema may be slightly increased from baseline. He has been having chronic orthopnea for several years. He sleeps in a recliner. He also has paroxysmal nocturnal dyspnea. He is scheduled to have an outpatient polysomnogram in July. the patient states that he was unaware that he had a diagnosis of CHF when I arrived in the room the patient had nasal cannula in place and his oxygen amount on his nasal cannula was at 10 L. the patient had not been requiring 10 L of oxygen. He had only been on 2 L of oxygen last time the nurse had been in the room. The patient denies having turned his oxygen meter up. Nursing staff is trying to replace the patient's oxygen flow meter as it may be malfunctioning. However the entire time I was in the room after the oxygen had been turned down the patient remained on 2 L. the patient asked multiple times if he was getting any oxygen therapy at that time because he could not feel the air forcibly in his nose. He does also report some nasal congestion and has had some low as nose multiple time. He denies any fevers or chills. He has not had any ill contacts. Review of Systems Review of Systems: Narrative: 12 systems were reviewed with pertinent positives and negatives per HPI. Except as documented in the HPI, all other systems were reviewed and are negative. [facility] Past Medical History Medical History 2nd degree AV block [employer] dual chamber pacemaker November 04, 2017 BPH (benign prostatic hyperplasia) CAD (coronary artery disease) PTCA/ALISON proximal left circumflex June 17, 2013, IVUS proximal and mid left circumflex artery, IFR and IVUS guided intervention balloon angioplasty stenting med distal left circumflex artery with drug-eluting stent, balloon angioplasty of InStent restenoses of ostial proximal left circumcised CHF (congestive heart failure) echocardiogram 07 08 2020: Mild concentric left ventricular hypertrophy moderate enlargement left ventricular cavity severe global left ventricular systolic dysfunction, impaired diastolic relaxation grade 1, akinetic apical segment, mild inferior septum segment and apical s
--- NOTE | 2020-07-17 10:54 | PM.IMPN ---
Progress Note: A&P Assessment and Plan (1) Non-STEMI (non-ST elevated myocardial infarction): Code(s): I21.4 - Non-ST elevation (NSTEMI) myocardial infarction Status: Acute Assessment and Plan: He recently 07/15/20 underwent stent to distal left circumflex artery using 4 x 18 drug-eluting stent and balloon angioplasty inside the stent proximally for in-stent restenosis, by Dr Ambrocio. Troponin > 80; 67.8; 65.1. Management per cardiology. Reviewed Dr Yeung's note - plan for medical management. Today he remains on Brilinta, ASA, lasix, carvedilol, lisinopril. (2) Acute CHF: Qualifiers: Heart failure type: combined systolic and diastolic Qualified Code(s): I50.41 - Acute combined systolic (congestive) and diastolic (congestive) heart failure Code(s): I50.9 - Heart failure, unspecified Status: Acute Assessment and Plan: Likely contributing to his shortness of breath. LVEF noted to be 25-30% on 07/15/20. Patient is short of breath, BNP elevated. Management per cardiology. Today he remains on IV Lasix BID; FRIDA and beta blockade. (3) CAD (coronary artery disease): Qualifiers: Associated angina: angina presence unspecified Coronary Disease-Associated Artery/Lesion type: [place] artery [place] vs. transplanted heart: [place] heart Qualified Code(s): I25.10 - Atherosclerotic heart disease of [place] coronary artery without angina pectoris Code(s): I25.10 - Atherosclerotic heart disease of [place] coronary artery without angina pectoris Status: Acute Assessment and Plan: Management per cardiology. Continue ASA, brilinta s/p cath and stenting 07/15. (4) Tobacco use: Code(s): Z72.0 - Tobacco use Status: Acute Assessment and Plan: Cessation encouraged. He was prescribed Wellbutrin and nicotine patches at last discharge. (5) Leukocytosis: Qualifiers: Leukocytosis type: leukemoid reaction Qualified Code(s): D72.823 - Leukemoid reaction Code(s): D72.829 - Elevated white blood cell count, unspecified Status: Acute Assessment and Plan: Suspect secondary stress reaction from non STEMI, acute hypoxic respiratory failure and pulmonary edema. White count improving. No evidence of infection. Subjective Date/time seen: 07/17/20 0845 Interval history: Mr. Yeh is a 65yo M admitted for shortness of breath. He was just discharged status post cardiac catheterization 07/15/20. He said he had a miserable night that night and did not sleep at all due to feeling short of breath. He presents again feeling short of breath, notes this morning he feels a bit better than yesterday. He denies chest pain this morning. He denies cough, nausea, vomiting, or abdominal pain. Review of Systems Review of Systems: Narrative: Twelve systems were reviewed with pertinent positives and negatives as per HPI. Exam Narrative: Exam Narrative: General: Male resting semi-mcdermott's position in bed in no acute distress. HEENT: Normocephalic, EOMI, oral mucosa moist. Cardiovascular: Rate and rhythm are regular. Respiratory: Diffuse wheezes bilaterally. Respirations even and nonlabored. Tolerating 2L nasal cannula. Abdomen: Protuberant but soft, non-tender, non-distended, bowel sounds present. Extremities: Peripheral pulses intact. 1+ pitting edema to SAL lower extremities below the knee. Neuro: No focal neurological deficits. Speech is clear. Objective Data Vital Signs Vital Signs: Last Vital Signs Temp 97.7 F 07/17/20 12:00 Pulse 65 07/17/20 12:00 Resp 18 07/17/20 12:00 BP 98/67 L 07/17/20 12:00 Pulse Ox 97 07/17/20 12:00 Intake/Output Intake/Output: Intake & Output 07/14/20 07/15/20 07/16/20 07/17/20
--- NOTE | 2020-07-17 11:32 | PM.CNCAR ---
Assessment and Plan Assessment and plan (1) Non-STEMI (non-ST elevated myocardial infarction): Code(s): I21.4 - Non-ST elevation (NSTEMI) myocardial infarction Status: Acute Assessment and Plan: Patient presents with shortness of breath and there is large increase in troponin to above [address] elevation [place]. patient states he took aspirin and Brilinta. discussed with the patient and his risks and benefits of cardiac catheterization. I described that the benefit of the cardiac catheterization in order to diagnose the etiology of that NSTEMI. however patient prefers not to undergo the cardiac catheterization and elected for medical management. will continue aspirin, Brilinta. will obtain echocardiogram to rule out mitral valve regurgitation. continue statin, beta-felton Jaxson inhibitor. IV heparin for couple days. (2) Acute CHF: Qualifiers: Heart failure type: combined systolic and diastolic Qualified Code(s): I50.41 - Acute combined systolic (congestive) and diastolic (congestive) heart failure Code(s): I50.9 - Heart failure, unspecified Status: Acute Assessment and Plan: continue IV Lasix to optimize heart failure treatment. he feels much better on the IV Lasix (3) Pacemaker: Code(s): Z95.0 - Presence of cardiac pacemaker Status: Acute (4) Tobacco use: Code(s): Z72.0 - Tobacco use Status: Acute Assessment and Plan: advised to quit smoking History of Present Illness History of Present Illness Consult date/time: Date of [id number]/24/20 11:32 Requesting physician: Dylan Javier MD Consult reason: congestive heart failure and shortness of breath Reason For Visit: Shortness of breath Narrative: this is a 65-year-old patient with history of pacemaker, history of a stent in the proximal left circumflex artery 2012, morbid obesity, tobacco abuse who had an echocardiogram on July 08 and showed ejection fraction 35% with wall motion abnormality in the inferolateral area. He was brought on to [facility] on July 15 and underwent stent to distal left circumflex artery using 4 x 18 drug-eluting stent and balloon angioplasty inside the stent proximally for InStent restenosis. Patient was discharged home yesterday and he was feeling short of breath that worsened and made him come here to the emergency room. his troponin was more than 80./ EKG shows ventricular paced rhythm. patient denies chest pain, lower limb edema, dizziness, syncope. He mentions that he took his aspirin and Brilinta yesterday evening. CTA thorax does not show pulmonary embolism. currently feels much better after receiving IV Lasix. Serum creatinine 1, brain natriuretic peptide 2600. Review of Systems Constitutional: Constitutional: Denies chills, Denies fever(s) and Denies poor appetite Eyes: Eyes: Denies eye discharge, Denies loss of vision, Denies eye pain and Denies photophobia ENT: Denies dizziness, Denies epistaxis, Denies nasal congestion and Denies sore throat Cardiovascular: Cardiovascular: Denies chest pain, Denies syncope, Denies pedal edema, Denies leg edema, Denies palpitations, Reports dyspnea, Reports dyspnea on exertion and Denies orthopnea Respiratory: Respiratory: Denies cough, Reports dyspnea, Reports dyspnea on exertion and Denies wheezing Gastrointestinal: Gastrointestinal: Denies abdominal pain, Denies diarrhea, Denies nausea and Denies vomiting Genitourinary: Genitourinary: Denies hematuria, Denies genital lesions and Denies dysuria Musculoskeletal: Musculoskeletal: Denies arthralgias, Denies joint swelling and Denies numbness Integumentary/Breasts: Skin/Breast: Denies pruritus and Denies rash Neurologic: Denies dizziness, Denies syncope, Denies loss of vision and Denies numbness Psychiatric: Psychiatric: Denies anxiety and Denies depression Endocrine: Endocrine: Denies cold intolerance, Denies heat in
[2020-07-17] MEDS: PERFLUTREN LIPID MICROSPHERES 1.5 ML VIAL DILUTED TO 10 ML TOTAL VOLUME IV PUSH (14:06)
[2020-07-17] MEDS: HEPARIN SOD/D5W 100 UNITS/ML 25,000 UNITS/250 ML BAG 10 UNITS IV CONT (14:17)
[2020-07-17] MEDS: HEPARIN SODIUM 5,000 UNITS/ML VIAL 4000 UNITS IV PUSH ×2 (14:18→21:01)
[2020-07-17] MEDS: TRIAMCINOLONE ACET 0.1% CREAM 15 GM TUBE 1 APPLIC TOPICAL ×2 (14:25→17:00)
[2020-07-17] MEDS: ALBUTEROL SULFATE NEB 2.5 MG/0.5 ML INH INHALATION ×2 (15:38→19:52)
[2020-07-17] MEDS: IPRATROPIUM BR 0.02% INH SOLN 0.5 MG/2.5 ML VIAL INHALATION ×2 (15:38→19:51)
[2020-07-17 20:34] LABS: Partial Thromboplastin Time 30.7 SECONDS (22.3-36.8)
[2020-07-18] VITALS (30 sets, daily range): BP systolic 93–104; BP diastolic 52–61; PULSE 60–94; RESP 18–21; TEMP 35.6–36.2; O2SAT 93–100
[2020-07-18] MEDS: IPRATROPIUM BR 0.02% INH SOLN 0.5 MG/2.5 ML VIAL INHALATION ×4 (01:29→20:03)
[2020-07-18] MEDS: ALBUTEROL SULFATE NEB 2.5 MG/0.5 ML INH INHALATION ×4 (01:29→20:03)
[2020-07-18 03:16] LABS: Basophils Absolute Auto 0.1 K/mm3 (0.0-0.1); Basophils Percent Auto 0.5 % (0.2-1.2); Eosinophils Percent Auto 0.4 % (0-4.4); Hematocrit 38.1 % (42.0-52.0); Hemoglobin 12.9 g/dL (14.0-18.0); Immature Granulocyte Absolute 0.03 K/mm3 (0.00-0.031); Immature Granulocyte Percent A 0.3 % (0-0.5); Lymphocytes Absolute Auto 1.67 K/mm3 (0.9-3.2); Lymphocytes Percent Auto 16.2 % (18.3-44.2); Mean Corpuscular HGB Conc 33.9 g/dl (32-36); Mean Corpuscular Hemoglobin 31.8 pg (26-34); Mean Corpuscular Volume 93.8 fl (80-100); Mean Platelet Volume 11.2 fl (7.4-10.4); Monocytes Absolute Auto 0.9 K/mm3 (0.1-0.6); Neutrophils Absolute Auto 7.6 K/mm3 (1.3-6.7); Neutrophils Percent Auto 73.6 % (45.5-73.1); Platelet Count Result 159 k/mm3 (150-375); Red Blood Count 4.06 M/mm3 (4.6-6.20); Red Cell Distribution Width 12.6 % (11.5-14.5); White Blood Count 10.3 K/mm3 (4.5-10.0)
[2020-07-18] MEDS: HEPARIN SODIUM 5,000 UNITS/ML VIAL 4000 UNITS IV PUSH ×3 (03:36→16:48)
[2020-07-18 03:42] LABS: Anion Gap 4 mmol/L (8-16); Blood Urea Nitrogen 40 mg/dL (9-20); Calcium 8.8 mg/dL (8.4-10.2); Carbon Dioxide 28 mmol/L (22-30); Chloride 100 mmol/L (98-107); Estimated CRCL calculation 82 ml/min; Estimated Glomerular Filt Rate 56; Glucose 121 mg/dL (75-110); Magnesium 2.2 mg/dL (1.6-2.3); Phosphorus 4.3 mg/dL (2.5-4.5); Potassium 3.8 mmol/L (3.4-5.0); Sodium 132 mmol/L (137-145)
[2020-07-18] MEDS: HEPARIN SOD/D5W 100 UNITS/ML 25,000 UNITS/250 ML BAG 18 UNITS IV CONT (08:04)
[2020-07-18] MEDS: FINASTERIDE 5 MG TABLET PO (08:58)
[2020-07-18] MEDS: ASPIRIN 81 MG ENTERIC TABLET PO (08:58)
[2020-07-18] MEDS: ATORVASTATIN 40 MG TABLET 80 MG PO (08:58)
[2020-07-18] MEDS: lisinopriL 20 MG TABLET PO (08:58)
[2020-07-18] MEDS: TICAGRELOR 90 MG TABLET PO ×2 (08:59→20:25)
[2020-07-18] MEDS: carvediloL 3.125 MG TABLET PO ×2 (08:59→20:25)
[2020-07-18] MEDS: FUROSEMIDE INJ 40 MG/4 ML VIAL IV PUSH (09:00)
[2020-07-18] MEDS: TRIAMCINOLONE ACET 0.1% CREAM 15 GM TUBE 1 APPLIC TOPICAL ×2 (09:01→16:48)
[2020-07-18 09:43] LABS: Partial Thromboplastin Time 54.8 SECONDS (22.3-36.8)
--- NOTE | 2020-07-18 11:17 | PM.IMPN ---
Progress Note: A&P Assessment and Plan (1) Non-STEMI (non-ST elevated myocardial infarction): Code(s): I21.4 - Non-ST elevation (NSTEMI) myocardial infarction Status: Acute Assessment and Plan: He recently 07/15/20 underwent drug-eluding stent placement to distal left circumflex artery and balloon angioplasty inside the stent proximally for in-stent restenosis, by Dr Ambrocio. Presented now with shortness of breath. Initial Troponin trend > 80; 67.8; 65.1. Management per cardiology. Today he remains on Brilinta, ASA. (2) Acute CHF: Qualifiers: Heart failure type: combined systolic and diastolic Qualified Code(s): I50.41 - Acute combined systolic (congestive) and diastolic (congestive) heart failure Code(s): I50.9 - Heart failure, unspecified Status: Acute Assessment and Plan: Likely contributing to his shortness of breath. LVEF noted to be 35-40%. Patient is short of breath, BNP elevated. Management per cardiology. Today he remains on FRIDA and beta blockade, transitioned to oral lasix. (3) CAD (coronary artery disease): Qualifiers: Associated angina: angina presence unspecified Coronary Disease-Associated Artery/Lesion type: [place] artery [place] vs. transplanted heart: [place] heart Qualified Code(s): I25.10 - Atherosclerotic heart disease of [place] coronary artery without angina pectoris Code(s): I25.10 - Atherosclerotic heart disease of [place] coronary artery without angina pectoris Status: Acute Assessment and Plan: Management per cardiology. Continue ASA, brilinta s/p cath and stenting 07/15. See above. (4) Tobacco use: Code(s): Z72.0 - Tobacco use Status: Acute Assessment and Plan: Cessation encouraged. He was prescribed Wellbutrin and nicotine patches at last discharge. (5) Leukocytosis: Qualifiers: Leukocytosis type: leukemoid reaction Qualified Code(s): D72.823 - Leukemoid reaction Code(s): D72.829 - Elevated white blood cell count, unspecified Status: Acute Assessment and Plan: Suspect secondary stress reaction from non STEMI, acute hypoxic respiratory failure and pulmonary edema. White count improving. No evidence of infection. Additional Plan Patient has episodes while sleeping feeling short of breath and requests O2 to be put back on. Suspect this is orthopnea related to CHF. Detailed discussion held with patient explaining that oxygen is a drug and we will avoid using it for comfort when his O2 sats are > 90%. Discussed with RN to wean O2 as tolerated to keep O2 saturations >90%. He has an upcoming sleep study scheduled outpatient. Subjective Date/time seen: 07/18/20 11:00 Interval history: Mr. Yeh is a 65yo M admitted for shortness of breath. He reports feeling better overall today. He did have an episode around 3:00am where he felt short of breath and requested to have oxygen reapplied. He denies chest pain. He has tolerated some breakfast without nausea, vomiting or abdominal pain today. Review of Systems Review of Systems: Narrative: Twelve systems were reviewed with pertinent positives and negatives as per HPI. Exam Narrative: Exam Narrative: General: Male resting sitting up on edge of bed in no acute distress. HEENT: Normocephalic, EOMI, oral mucosa moist. Cardiovascular: Rate and rhythm are regular. Respiratory: Faint bibasilar rales. Respirations even and nonlabored. Tolerating 1L nasal cannula with adequate saturations. Abdomen: Protuberant but soft, non-tender, non-distended, bowel sounds present. Extremities: Peripheral pulses intact. Trace pitting edema to SAL lower extremities below the knee, improved from yesterday. Neuro: No focal neurological def
--- NOTE | 2020-07-18 11:58 | PM.PNCARD ---
Progress Note: A&P Assessment and Plan (1) Non-STEMI (non-ST elevated myocardial infarction): Code(s): I21.4 - Non-ST elevation (NSTEMI) myocardial infarction Status: Acute Assessment and Plan: Cardiac catheterization with stenting to mid to distal circumflex and proximal circumflex. Discharged home 07/16/2020. Return to the emergency room 07/16/2020 with shortness of breath. Large increase in troponin to above [address] elevation [place]. He stated he took aspirin and Brilinta. Benefit of cardiac catheterization would be to diagnose etiology of the non ST-elevation myocardial infarction. On discussion with Dr Yeung medical management was elected. He was started on heparin drip, continued on aspirin, Brilinta, atorvastatin, lisinopril and carvedilol. Echocardiogram completed 07/17/2020 compared with the echocardiogram done in the office on 07/08/[address] Barbour is relatively unchanged. The ejection fraction 30-35% in the office versus 35-40% on the current echocardiogram. Wall motion abnormalities are unchanged. RV function is reduced which was normal on the office echocardiogram. Major differences mild to moderate mitral regurgitation now present. Mild pulmonary hypertension is also noted. Discussed with Dr. Barbour that the likely explanation for the non ST-elevation myocardial infarction is an abrupt occlusion of the circumflex stents. Will be continued on heparin for another 24 hours. Check a troponin in the morning. (2) Acute CHF: Qualifiers: Heart failure type: combined systolic and diastolic Qualified Code(s): I50.41 - Acute combined systolic (congestive) and diastolic (congestive) heart failure Code(s): I50.9 - Heart failure, unspecified Status: Acute Assessment and Plan: Echocardiogram as above. BUN and creatinine are rising. Blood pressure is also little soft. He is asymptomatic. Stop IV Lasix. Start furosemide 40 mg p.o.b.i.d. BMP and magnesium in the morning. (3) Pacemaker: Code(s): Z95.0 - Presence of cardiac pacemaker Status: Acute Assessment and Plan: Normal function noted on telemetry. (4) Tobacco use: Code(s): Z72.0 - Tobacco use Status: Acute Assessment and Plan: Smoking cessation discussed. Continue Wellbutrin. Additional Plan Plan discussed with Dr. Barbour 1150 07/18/2020 Time Spent With Patient Time: Greater than 20 minute in the room with he and his answering multiple questions regarding AL, heart failure, treating pulmonary edema, balance between intravascularly dry and renal function, 5 minutes to compare the echocardiogram from the office to the echocardiogram done 07/17/[address] Barbour. Time with patient: 15 - 25 minutes Subjective Date/time seen: 07/18/20 11:58 Interval history: Follow-up for: Non ST-elevation myocardial infarction, decompensated heart failure, dual-chamber pacemaker, tobacco use Date of service: 07/18/2020 Subjective: Feeling much better. Denied chest discomfort. Was off oxygen but at approximately 3:00 a.m. felt that he could not breathe and oxygen reapplied. No lightheadedness. Review of Systems Constitutional: Constitutional: Denies chills, Denies fever(s) and Denies poor appetite Eyes: Eyes: Denies eye discharge, Denies loss of vision, Denies eye pain and Denies photophobia ENT: Denies dizziness, Denies epistaxis, Denies nasal congestion and Denies sore throat Cardiovascular: Cardiovascular: Denies chest pain, Denies syncope, Denies pedal edema, Denies leg edema, Denies palpitations, Reports dyspnea, Reports dyspnea on exertion and Reports paroxysmal nocturnal dyspnea Comments: Has slept in a recliner for the last 5 years Respiratory: Respirat
[2020-07-18 16:15] LABS: Partial Thromboplastin Time 68.2 SECONDS (22.3-36.8)
[2020-07-18] MEDS: FUROSEMIDE 40 MG TABLET PO (16:48)
[2020-07-18] MEDS: MELATONIN 5 MG TABLET PO (20:25)
[2020-07-18] MEDS: HEPARIN SOD/D5W 100 UNITS/ML 25,000 UNITS/250 ML BAG 24 UNITS IV CONT (20:27)
[2020-07-18 23:11] LABS: Partial Thromboplastin Time 92.4 SECONDS (22.3-36.8)
[2020-07-19] VITALS (25 sets, daily range): BP systolic 84–115; BP diastolic 44–58; PULSE 58–88; RESP 18–24; TEMP 36.2–36.9; O2SAT 91–97
[2020-07-19] MEDS: ALBUTEROL SULFATE NEB 2.5 MG/0.5 ML INH INHALATION ×2 (02:42→09:17)
[2020-07-19] MEDS: IPRATROPIUM BR 0.02% INH SOLN 0.5 MG/2.5 ML VIAL INHALATION ×2 (02:42→09:17)
[2020-07-19 05:28] LABS: Basophils Absolute Auto 0.1 K/mm3 (0.0-0.1); Basophils Percent Auto 0.7 % (0.2-1.2); Eosinophils Absolute Auto 0.1 K/mm3 (0-0.3); Eosinophils Percent Auto 1.5 % (0-4.4); Hematocrit 37.8 % (42.0-52.0); Hemoglobin 12.8 g/dL (14.0-18.0); Immature Granulocyte Absolute 0.07 K/mm3 (0.00-0.031); Immature Granulocyte Percent A 0.7 % (0-0.5); Lymphocytes Absolute Auto 1.52 K/mm3 (0.9-3.2); Lymphocytes Percent Auto 15.9 % (18.3-44.2); Mean Corpuscular HGB Conc 33.9 g/dl (32-36); Mean Corpuscular Hemoglobin 32.1 pg (26-34); Mean Corpuscular Volume 94.7 fl (80-100); Mean Platelet Volume 11.4 fl (7.4-10.4); Monocytes Absolute Auto 0.8 K/mm3 (0.1-0.6); Monocytes Percent Auto 8.1 % (2.6-8.5); Neutrophils Percent Auto 73.1 % (45.5-73.1); Platelet Count Result 179 k/mm3 (150-375); Red Blood Count 3.99 M/mm3 (4.6-6.20); Red Cell Distribution Width 12.3 % (11.5-14.5); White Blood Count 9.6 K/mm3 (4.5-10.0)
[2020-07-19 05:39] LABS: Anion Gap 10 mmol/L (8-16); Blood Urea Nitrogen 46 mg/dL (9-20); Carbon Dioxide 28 mmol/L (22-30); Chloride 99 mmol/L (98-107); Estimated CRCL calculation 75 ml/min; Estimated Glomerular Filt Rate 51; Glucose 110 mg/dL (75-110); Magnesium 2.4 mg/dL (1.6-2.3); Partial Thromboplastin Time 85.7 SECONDS (22.3-36.8); Potassium 3.7 mmol/L (3.4-5.0); Sodium 137 mmol/L (137-145)
[2020-07-19] MEDS: HEPARIN SOD/D5W 100 UNITS/ML 25,000 UNITS/250 ML BAG 24 UNITS IV CONT (06:46)
[2020-07-19] MEDS: FINASTERIDE 5 MG TABLET PO (08:51)
[2020-07-19] MEDS: TICAGRELOR 90 MG TABLET PO ×2 (08:51→20:56)
[2020-07-19] MEDS: lisinopriL 20 MG TABLET PO (08:51)
[2020-07-19] MEDS: carvediloL 3.125 MG TABLET PO ×2 (08:51→20:55)
[2020-07-19] MEDS: FUROSEMIDE 40 MG TABLET PO (08:51)
[2020-07-19] MEDS: ATORVASTATIN 40 MG TABLET 80 MG PO (08:52)
[2020-07-19] MEDS: ASPIRIN 81 MG ENTERIC TABLET PO (08:52)
--- NOTE | 2020-07-19 11:10 | PM.PNCARD ---
Progress Note: A&P Additional Plan NSTEMI, acute on chronic systolic heart failure, moderate MR, Pacemaker, plan DAPT, increase lasix dose to 80 mg po BID, Statin, ACEI and B-felton, D/C therapeutic heparin and start DVT prophylaxis today Subjective Date/time seen: 07/19/20 11:10 Interval history: Feels better today but still SOB on mild activity Tele paced V rhythm and intermittent hypoxemia Review of Systems Review of Systems: All systems reviewed & are unremarkable except as noted in HPI and below Exam Const: General: comfortable and no acute distress Other: Able to lie flat HENMT: General nose exam: Normal nares present and no epistaxis Mouth: Yes moist mucous membranes Eyes: Sclera: sclerae normal Pupils: Equal, round and reactive pupils present Neck: Neck: supple and JVD Carotids: no bruits Resp: Auscultation: clear to auscultation bilaterally and lung sounds not diminished Other: No chest wall tenderness Cardio: Rate: regular rate Rhythm: regular rhythm Heart sounds: no gallops, no murmurs and no rubs GI: GI Palp: Yes Soft to palpation and No Tenderness to palpation present (GI) Auscultation: normal bowel sounds Skin: General skin exam: normal color, rashes and/or lesions noted and no erythema Other: Warm Neuro: Cranial nerves: Yes Equal, round and reactive pupils present Speech: normal speech Other: No obvious focal deficit or facial asymmetry Extrem: General: edema (bilateral ankle ) Other: Normal capillary refills Intact distal pulses. Objective Data Vital Signs Vital Signs: Vital Signs - 24 hr 07/18/20 12:00 07/18/20 12:19 07/18/20 13:16 Temperature 35.6 C L Pulse Rate 67 73 76 Respiratory Rate 20 18 Blood Pressure 97/53 L Pulse Oximetry 95 07/18/20 13:20 07/18/20 14:24 07/18/20 16:00 Temperature Pulse Rate 67 66 Respiratory Rate Blood Pressure Pulse Oximetry 93 07/18/20 16:30 07/18/20 18:20 07/18/20 19:06 Temperature 35.7 C L 36.1 C L Pulse Rate 94 80 69 Respiratory Rate 21 H 21 H Blood Pressure 93/53 L 96/59 L Pulse Oximetry 100 95 07/18/20 19:47 07/18/20 19:55 09/25/20 20:00 Temperature 36.1 C L Pulse Rate 70 88 70 Respiratory Rate 18 18 18 Blood Pressure 104/52 L Pulse Oximetry 94 94 07/18/20 20:07 07/18/20 20:08 07/18/20 20:25 Temperature Pulse Rate 88 71 Respiratory Rate 18 Blood Pressure Pulse Oximetry 95 07/18/20 22:00 07/19/20 00:00 07/19/20 02:00 Temperature 36.2 C L Pulse Rate 60 64 63 Respiratory Rate 18 Blood Pressure 93/56 L Pulse Oximetry 97 07/19/20 02:35 07/19/20 02:43 07/19/20 04:00 Temperature 36.3 C L Pulse Rate 64 64 60 Respiratory Rate 18 18 24 H Blood Pressure 88/54 L Pulse Oximetry 97 07/19/20 06:00 07/19/20 08:00 07/19/20 08:51 Temperature 36.6 C Pulse Rate 75 61 65 Respiratory Rate 22 H Blood Pressure 110/57 L Pulse Oximetry 94 07/19/20 09:17 07/19/20 09:18 07/19/20 09:30 Temperature Pulse Rate 71 73 Respiratory Rate 18 18 Blood Pressure Pulse Oximetry 95 07/19/20 10:00 Temperature Pulse Rate 65 Respiratory Rate Blood Pressure Pulse Oximetry Intake/Output Intake/Output: Intake & Output 07/16/20 07/17/20 07/18/20 07/19/20 23:59 23:59 23:59 23:59 Intake Total 942 895 0875 1720 Output Total 900 1100 400 Balance 300 -180 1540 1320 Meds/Results Medications: Active Medications Generic Name Dose Route Start Last Admin Trade Name Sergioq PRN Reason Stop Dose Admin Albuterol 2 puff 07/19/20 09:59 Proventil Hfa INHALATION QIDRT PRN Shortness Of Breath Aspirin 81 mg 07/17/20 09:00 07/19/20 08:52 Aspirin Ec PO 81 mg DAILY ADWOA Administration Atorvastatin Calcium 80 mg 07/17/20 09:00 07/19/20 08:52 Lipitor PO 80 mg DAILY ADWOA Administration Bupropion HCl 150 mg 07/17/20 09:00 07/19/20 08:52 Wellbutrin-Sr (12 Hr) PO 150 mg Q12HR ADWOA Administration
--- NOTE | 2020-07-19 11:41 | PM.IMPN ---
Progress Note: A&P Assessment and Plan (1) Non-STEMI (non-ST elevated myocardial infarction): Code(s): I21.4 - Non-ST elevation (NSTEMI) myocardial infarction Status: Acute Assessment and Plan: He recently 07/15/20 underwent drug-eluding stent placement to distal left circumflex artery and balloon angioplasty inside the stent proximally for in-stent restenosis, by Dr Ambrocio. Presented now with shortness of breath. Initial Troponin trend > 80; 67.8; 65.1. Trop trending down to 25 today. Management per cardiology. Today he remains on Brilinta, ASA, heparin drip through this afternoon. Dispo per cardiology, anticipate possible discharge ?tomorrow. (2) Acute CHF: Qualifiers: Heart failure type: combined systolic and diastolic Qualified Code(s): I50.41 - Acute combined systolic (congestive) and diastolic (congestive) heart failure Code(s): I50.9 - Heart failure, unspecified Status: Acute Assessment and Plan: Likely contributing to his shortness of breath. LVEF noted to be 35-40%. Patient is short of breath, BNP elevated. Management per cardiology. Today he remains on FRIDA and beta blockade, lasix. (3) CAD (coronary artery disease): Qualifiers: Coronary Disease-Associated Artery/Lesion type: [place] artery [place] vs. transplanted heart: [place] heart Associated angina: angina presence unspecified Qualified Code(s): I25.10 - Atherosclerotic heart disease of [place] coronary artery without angina pectoris Code(s): I25.10 - Atherosclerotic heart disease of [place] coronary artery without angina pectoris Status: Acute Assessment and Plan: Management per cardiology. Continue ASA, brilinta s/p cath and stenting 07/15. See above. (4) Tobacco use: Code(s): Z72.0 - Tobacco use Status: Acute Assessment and Plan: Cessation encouraged. He was prescribed Wellbutrin and nicotine patches at last discharge. (5) Leukocytosis: Qualifiers: Leukocytosis type: leukemoid reaction Qualified Code(s): D72.823 - Leukemoid reaction Code(s): D72.829 - Elevated white blood cell count, unspecified Status: Resolved Assessment and Plan: Resolved. Suspect secondary to stress reaction; no signs or symptoms of infection. Subjective Date/time seen: 07/19/20 0900 Interval history: Mr. Yeh is a 65yo M admitted for NSTEMI, shortness of breath. He is feeling improved. Denies chest pain or shortness of breath. He has tolerated oral intake without nausea, vomiting, or abdominal pain. Notified by RT that home oxygen evaluation was performed and shows that he does not qualify for home O2. He became mildly short of breath with ambulation which improved with albuterol MDI, per RT. Review of Systems Review of Systems: Narrative: Twelve systems were reviewed with pertinent positives and negatives as per HPI. Exam Narrative: Exam Narrative: General: Male resting sitting up on edge of bed in no acute distress. HEENT: Normocephalic, EOMI, oral mucosa moist. Cardiovascular: Rate and rhythm are regular. Respiratory: Lungs clear to auscultation all [place]. Respirations even and nonlabored. Tolerating room air. Abdomen: Protuberant but soft, non-tender, non-distended, bowel sounds present. Extremities: Peripheral pulses intact. Trace pitting edema to SAL lower extremities below the knee, improved from yesterday. Neuro: No focal neurological deficits. Speech is clear. Objective Data Vital Signs Vital Signs: Last Vital Signs Temp 98.4 F 07/19/20 12:00 Pulse 61 07/19/20 14:09 Resp 20 07/19/20 12:00 BP 98/58 L 07/19/20 12:00 Pulse Ox 96 07/19/20 13:20 Intake/Output Intake/Output: Intake & Output
[2020-07-19] MEDS: polyethylene glycoL 3350 17 GM POWD.PACK PO (12:01)
[2020-07-19] MEDS: ALBUTEROL SULFATE (*SP) AEROSOL 1 PUFF 2 PUFF INHALATION ×2 (13:45→21:35)
--- NOTE | 2020-07-19 14:53 | HOMEO2EVAL ---
Home Oxygen Evaluation RC: Home Oxygen (O2) Evaluation Start: 07/19/20 09:08 Freq: ONCE Status: Active Protocol: RPE Activity Type Activity Date Activity User E-Sign Co-Sign Detail Recorded Client Recorded Date Recorded By Document 07/19/20 13:12 [facility] [email or web address] 07/19/20 14:49 [facility] Document 07/19/20 13:10 [email or web address] 07/19/20 14:48 [facility] Document 07/19/20 13:20 [email or web address] 07/19/20 14:53 [facility] 07/19/20 07/19/20 07/19/20 13:12 13:10 13:20 Home O2 Evaluation Test Phase Exercise Resting Resting Oxygen Delivery Room Air Room Air Room Air Fraction of Inspired Oxygen (%) 21 21 21 Pulse Oximetry (90-100 %) 93 94 96 Pulse Rate (60-100 beats/min) 84 88 85 Activity Tolerance Good Good Rating of Perceived Dyspnea (PD) +2 Mild, Some Difficulty, Noticeable to the Observer Rate of Perceived Exertion (PE) 11 Fairly light Ambulation Distance (feet) 170 Home Oxygen Evaluation Comments Pt became SOB Pt does not with exertion qualify for SpO2 never home O2. decreased below 92%. Treatment Charges O2 Evaluation
[2020-07-19] MEDS: FUROSEMIDE 80 MG TABLET PO (16:55)
[2020-07-19] MEDS: MELATONIN 5 MG TABLET PO (20:55)
[2020-07-20] VITALS (18 sets, daily range): BP systolic 90–103; BP diastolic 40–75; PULSE 60–81; RESP 16–22; TEMP 35.8–36.4; O2SAT 93–99
[2020-07-20] MEDS: ALBUTEROL SULFATE (*SP) AEROSOL 1 PUFF 2 PUFF INHALATION ×3 (02:38→23:54)
[2020-07-20] MEDS: NICOTINE (*PBKC) 21 MG PATCH 1 PATCH TRANSDERM ×2 (04:19→08:27)
[2020-07-20 05:28] LABS: Alanine Aminotransferase 88 U/L (4-50); Albumin Level 4.1 g/dL (3.5-5.1); Alkaline Phosphatase 55 U/L (38-126); Anion Gap 9 mmol/L (8-16); Aspartate Amino Transferase 62 U/L (17-59); Bilirubin,Total 0.8 mg/dL (0.2-1.3); Blood Urea Nitrogen 44 mg/dL (9-20); Calcium 9.1 mg/dL (8.4-10.2); Carbon Dioxide 26 mmol/L (22-30); Chloride 102 mmol/L (98-107); Estimated CRCL calculation 88 ml/min; Estimated Glomerular Filt Rate > 60; Glucose 106 mg/dL (75-110); Magnesium 2.4 mg/dL (1.6-2.3); Potassium 4.2 mmol/L (3.4-5.0); Sodium 137 mmol/L (137-145)
[2020-07-20] MEDS: TICAGRELOR 90 MG TABLET PO ×2 (08:26→20:36)
[2020-07-20] MEDS: FINASTERIDE 5 MG TABLET PO (08:28)
[2020-07-20] MEDS: carvediloL 3.125 MG TABLET PO ×2 (08:28→20:36)
[2020-07-20] MEDS: ATORVASTATIN 40 MG TABLET 80 MG PO (08:29)
[2020-07-20] MEDS: ASPIRIN 81 MG ENTERIC TABLET PO (08:29)
--- NOTE | 2020-07-20 09:10 | PM.IMPN ---
Progress Note: A&P Assessment and Plan (1) Non-STEMI (non-ST elevated myocardial infarction): Code(s): I21.4 - Non-ST elevation (NSTEMI) myocardial infarction Status: Acute Assessment and Plan: He recently 07/15/20 underwent drug-eluding stent placement to distal left circumflex artery and balloon angioplasty inside the stent proximally for in-stent restenosis, by Dr Ambrocio. Presented now with shortness of breath. Initial Troponin trend > 80; 67.8; 65.1. Trop trending down to 25 today. Management per cardiology. Today he remains on Brilinta, ASA. Discussed case with Dr Connor. BPs still low this afternoon and patient is mildly symptomatic with this, per cardiology plan to keep overnight to monitor and hopeful for discharge tomorrow. (2) Acute CHF: Qualifiers: Heart failure type: combined systolic and diastolic Qualified Code(s): I50.41 - Acute combined systolic (congestive) and diastolic (congestive) heart failure Code(s): I50.9 - Heart failure, unspecified Status: Acute Assessment and Plan: Likely contributing to his shortness of breath. LVEF noted to be 35-40%. Management per cardiology. Today he remains on FRIDA and beta blockade, lasix. Monitor renal function, I&Os, daily weights. (3) CAD (coronary artery disease): Qualifiers: Coronary Disease-Associated Artery/Lesion type: [place] artery [place] vs. transplanted heart: [place] heart Associated angina: angina presence unspecified Qualified Code(s): I25.10 - Atherosclerotic heart disease of [place] coronary artery without angina pectoris Code(s): I25.10 - Atherosclerotic heart disease of [place] coronary artery without angina pectoris Status: Acute Assessment and Plan: Management per cardiology. Continue ASA, brilinta s/p cath and stenting 07/15. See above. (4) Tobacco use: Code(s): Z72.0 - Tobacco use Status: Acute Assessment and Plan: Cessation encouraged. He was prescribed Wellbutrin and nicotine patches at last discharge. Subjective Date/time seen: 07/20/20 09:00 Interval history: Mr. Yeh is a 65yo M admitted for NSTEMI, shortness of breath. Rough night, didn't sleep very well but SOB has improved. When he feels short of breath, albuterol helps. He denies chest pain this morning. He has tolerated some breakfast without nausea, vomiting or abdominal pain. Review of Systems Review of Systems: Narrative: Twelve systems were reviewed with pertinent positives and negatives as per HPI. Exam Narrative: Exam Narrative: General: Male resting sitting up on edge of bed in no acute distress. HEENT: Normocephalic, EOMI, oral mucosa moist. Cardiovascular: Rate and rhythm are regular. Respiratory: Lungs clear to auscultation. Respirations even and nonlabored. Tolerating room air. Abdomen: Protuberant but soft, non-tender, non-distended, bowel sounds present. Extremities: Peripheral pulses intact. Trace pitting edema to SAL lower extremities below the knee, improved. Neuro: No focal neurological deficits. Speech is clear. Objective Data Vital Signs Vital Signs: Last Vital Signs Temp 96.5 F L 07/20/20 12:02 Pulse 65 07/20/20 12:02 Resp 16 07/20/20 12:02 BP 94/56 L 07/20/20 12:02 Pulse Ox 94 07/20/20 12:02 Intake/Output Intake/Output: Intake & Output 07/17/20 07/18/20 07/19/20 07/20/20 23:59 23:59 23:59 23:59 Intake Total 720 2640 3612 900 Output Total 900 1100 1950 900 Balance -180 1540 1662 0 Meds/Results Medications: Active Medications Generic Name Dose Route Start Last Admin Trade Name Freq PRN Reason Stop Dose Admin Albuterol 2 puff 07/19/20 09:59 07/20/20 02:38 Junior Hfa INHALATION 2 puff QIDRT PRN Administration Shortness Of Breath Aspirin
[2020-07-20] MEDS: lisinopriL 20 MG TABLET PO (09:13)
[2020-07-20] MEDS: FUROSEMIDE 80 MG TABLET PO ×2 (09:13→16:24)
--- NOTE | 2020-07-20 09:13 | PM.PNCARD ---
Progress Note: A&P Additional Plan NSTEMI, acute on chronic systolic heart failure improving, moderate MR, Pacemaker, plan DAPT, cont lasix dose to 80 mg po BID, salt and fluid restriction/ education give to patient and he agrees, Statin, ACEI and B-felton, explained ot ptn that asymptomatic mild decrease in BP is acceptable. will need close follow up. Subjective Date/time seen: 07/20/20 09:13 Interval history: no acute events much improvement in SOB anxiety improved with nicotine patch Review of Systems Review of Systems: All systems reviewed & are unremarkable except as noted in HPI and below Exam Const: General: comfortable and no acute distress Other: Able to lie flat HENMT: General nose exam: Normal nares present and no epistaxis Mouth: Yes moist mucous membranes Eyes: Sclera: sclerae normal Pupils: Equal, round and reactive pupils present Neck: Neck: supple Carotids: no bruits Other: JVD Resp: Auscultation: clear to auscultation bilaterally and lung sounds not diminished Other: No chest wall tenderness Cardio: Rate: regular rate Rhythm: regular rhythm Heart sounds: no gallops, no murmurs and no rubs GI: GI Palp: Yes Soft to palpation and No Tenderness to palpation present (GI) Auscultation: normal bowel sounds Skin: General skin exam: normal color, rashes and/or lesions noted and no erythema Other: Warm Neuro: Cranial nerves: Yes Equal, round and reactive pupils present Speech: normal speech Other: No obvious focal deficit or facial asymmetry Extrem: General: edema (bilateral ankle level edema) Other: Normal capillary refills Intact distal pulses. Objective Data Vital Signs Vital Signs: Vital Signs - 24 hr 07/19/20 09:17 07/19/20 09:18 07/19/20 09:30 Temperature Pulse Rate 71 73 Respiratory Rate 18 18 Blood Pressure Pulse Oximetry 95 07/19/20 10:00 07/19/20 12:00 07/19/20 13:10 Temperature 36.9 C Pulse Rate 65 69 88 Respiratory Rate 20 Blood Pressure 98/58 L Pulse Oximetry 95 94 07/19/20 13:12 07/19/20 13:20 07/19/20 14:09 Temperature Pulse Rate 84 85 61 Respiratory Rate Blood Pressure Pulse Oximetry 93 96 07/19/20 16:00 07/19/20 18:03 07/19/20 20:00 Temperature 36.6 C 36.6 C Pulse Rate 68 78 85 Respiratory Rate 18 22 H Blood Pressure 109/51 L 115/55 L Pulse Oximetry 96 94 07/19/20 20:55 07/19/20 21:36 07/19/20 21:37 Temperature Pulse Rate 75 77 Respiratory Rate 18 Blood Pressure Pulse Oximetry 94 07/19/20 22:00 07/19/20 23:52 07/20/20 00:00 Temperature 36.2 C L Pulse Rate 65 61 66 Respiratory Rate 22 H Blood Pressure 84/44 L Pulse Oximetry 91 07/20/20 02:00 07/20/20 04:00 07/20/20 05:51 Temperature 36.1 C L Pulse Rate 60 72 65 Respiratory Rate 22 H Blood Pressure 90/40 L Pulse Oximetry 99 07/20/20 08:00 07/20/20 08:17 07/20/20 08:28 Temperature 36.0 C L Pulse Rate 64 68 70 Respiratory Rate 20 Blood Pressure 97/75 L Pulse Oximetry 93 Intake/Output Intake/Output: Intake & Output 07/17/20 07/18/20 07/19/20 07/20/20 23:59 23:59 23:59 23:59 Intake Total 720 2640 3612 900 Output Total 900 1100 1950 900 Balance -180 1540 1662 0 Meds/Results Medications: Active Medications Generic Name Dose Route Start Last Admin Trade Name Freq PRN Reason Stop Dose Admin Albuterol 2 puff 07/19/20 09:59 07/20/20 02:38 Proventil Hfa INHALATION 2 puff QIDRT PRN Administration Shortness Of Breath Aspirin 81 mg 07/17/20 09:00 07/20/20 08:29 Aspirin Ec PO 81 mg DAILY ADWOA Administration Atorvastatin Calcium 80 mg 07/17/20 09:00 07/20/20 08:29 Lipitor PO 80 mg DAILY ADWOA Administration Bupropion HCl 150 mg 07/17/20 09:00 07/20/20 08:29 Wellbutrin-Sr (12 Hr) PO 150 mg Q12HR ADWOA Administration Carvedilol 3.125 mg 07/17/20 09:00 07/20/20 08:28 Coreg PO 3.125 mg Q12HR ADWOA Administration Finasteride 5 mg
[2020-07-20] MEDS: polyethylene glycoL 3350 17 GM POWD.PACK PO (09:18)
[2020-07-20] MEDS: ACETAMINOPHEN 325 MG TABLET 650 MG PO (19:45)
[2020-07-20] MEDS: MELATONIN 5 MG TABLET PO (20:36)
[2020-07-20] MEDS: MELATONIN 3 MG TABLET PO (20:36)
[2020-07-21] VITALS (7 sets, daily range): BP systolic 100–109; BP diastolic 53–61; PULSE 55–80; RESP 12–18; TEMP 35.8–36.6; O2SAT 94–99
[2020-07-21 05:15] LABS: Hematocrit 39.9 % (42.0-52.0); Hemoglobin 13.7 g/dL (14.0-18.0)
[2020-07-21 05:26] LABS: Partial Thromboplastin Time 28.9 SECONDS (22.3-36.8)
[2020-07-21 05:30] LABS: Anion Gap 9 mmol/L (8-16); Blood Urea Nitrogen 36 mg/dL (9-20); Calcium 9.2 mg/dL (8.4-10.2); Carbon Dioxide 30 mmol/L (22-30); Chloride 101 mmol/L (98-107); Estimated CRCL calculation 68 ml/min; Estimated Glomerular Filt Rate > 60; Glucose 113 mg/dL (75-110); Magnesium 2.2 mg/dL (1.6-2.3); Sodium 140 mmol/L (137-145)
[2020-07-21] MEDS: TICAGRELOR 90 MG TABLET PO (08:37)
[2020-07-21] MEDS: lisinopriL 20 MG TABLET PO (08:37)
[2020-07-21] MEDS: FINASTERIDE 5 MG TABLET PO (08:37)
[2020-07-21] MEDS: ASPIRIN 81 MG ENTERIC TABLET PO (08:38)
[2020-07-21] MEDS: carvediloL 3.125 MG TABLET PO (08:38)
[2020-07-21] MEDS: ATORVASTATIN 40 MG TABLET 80 MG PO (08:38)
[2020-07-21] MEDS: FUROSEMIDE 80 MG TABLET PO (08:38)
[2020-07-21] MEDS: NICOTINE (*PBKC) 21 MG PATCH 1 PATCH TRANSDERM (08:39)
--- NOTE | 2020-07-21 10:21 | PM.PNCARD ---
Progress Note: A&P Assessment and Plan (1) Non-STEMI (non-ST elevated myocardial infarction): Code(s): I21.4 - Non-ST elevation (NSTEMI) myocardial infarction Status: Acute Assessment and Plan: Cardiac catheterization with stenting to mid to distal circumflex and proximal circumflex. Discharged home 07/16/2020. Returned to the emergency room 07/16/2020 with shortness of breath. Large increase in troponin to above [address] elevation ID. He stated he took aspirin and Brilinta. Benefit of cardiac catheterization would be to diagnose etiology of the non ST-elevation myocardial infarction. On discussion with Dr Yeung medical management was elected. Echocardiogram completed 07/17/2020 compared with the echocardiogram done in the office on 07/08/2020: Ejection fraction is relatively the same. Wall motion abnormalities relatively the same. RV function is reduced which was normal on the office echocardiogram. Mild to moderate mitral regurgitation now present. Mild pulmonary hypertension is also noted. Aspirin, Brilinta, atorvastatin, carvedilol and lisinopril were continued. Heparin for 48 hours was completed yesterday afternoon. (2) Acute CHF: Qualifiers: Heart failure type: combined systolic and diastolic Qualified Code(s): I50.41 - Acute combined systolic (congestive) and diastolic (congestive) heart failure Code(s): I50.9 - Heart failure, unspecified Status: Acute Assessment and Plan: Echocardiogram as above. Furosemide 80 mg b.i.d. over the weekend. Fluid restriction discussed. Recommend 2 L (68 oz) per day. Discharge on furosemide at 40 mg daily. He is to weigh himself daily and call the office if he gains 3 lb over 2 days or 5 lb over 1 week. Will check BMP on Tuesday. Blood pressure remains soft but he is asymptomatic. (3) Pacemaker: Code(s): Z95.0 - Presence of cardiac pacemaker Status: Acute Assessment and Plan: Normal function noted on telemetry. (4) Tobacco use: Code(s): Z72.0 - Tobacco use Status: Acute Assessment and Plan: Smoking cessation discussed. Continue Wellbutrin. Nicotine patch was added over the weekend. This did help some of his anxiety sensations. Additional Plan OK to discharge from cardiac standpoint. See discharge instructions for follow-up. Plan discussed with Dr Marley 1120 07/21/2020 Subjective Date/time seen: 07/21/20 10:21 Interval history: Follow-up for: Non ST-elevation myocardial infarction, decompensated heart failure, dual-chamber pacemaker, tobacco use Date of service: 07/21/2020 Subjective: Denied chest discomfort. Shortness of breath with exertional activities improved. Sensation of not being able to breathe when laying down is improved. No lightheadedness today. Review of Systems Review of Systems: All systems reviewed & are unremarkable except as noted in HPI and below Constitutional: Constitutional: Denies chills, Denies fever(s) and Denies poor appetite Eyes: Eyes: Denies eye discharge, Denies loss of vision, Denies eye pain and Denies photophobia ENT: Denies dizziness, Denies epistaxis, Denies nasal congestion and Denies sore throat Cardiovascular: Cardiovascular: Denies chest pain, Denies syncope, Denies pedal edema, Denies leg edema, Denies lightheadedness, Denies palpitations, Reports dyspnea ( improved), Reports dyspnea on exertion (Improved) and Reports paroxysmal nocturnal dyspnea (Improved) Respiratory: Respiratory: Denies cough, Reports dyspnea ( improved), Reports dyspnea on exertion (Improved) and Denies wheezing Gastrointestinal: Gastrointestinal: Denies abdominal pain, Denies diarrhea, Denies nausea and Denies vomiting Genitourinary: Genitourinary: Denies hematuria, Denies genital lesions
--- NOTE | 2020-07-21 19:13 | PM.DS ---
DS: Admitting Diagnosis Admitting Diagnosis Admitting Diagnosis: Shortness of breath DS: Discharge Diagnosis Discharge Diagnosis (1) Non-STEMI (non-ST elevated myocardial infarction): Code(s): I21.4 - Non-ST elevation (NSTEMI) myocardial infarction Status: Acute Assessment and Plan: Date of Admission 07/16/20 Date of Discharge/DOS: 07/21/20 Mr. Yeh is a pleasant 65yo M with history of coronary artery disease with recent coronary stenting just prior to this admission, combined systolic and diastolic heart failure and tobacco use who presented to the ED for evaluation of shortness of breath after being discharged from this facility earlier this morning after cardiac catheterization and coronary stenting by Dr Ambrocio, see below. He was treated this admission for NSTEMI and acute on chronic CHF. On arrival, patient's troponins were markedly elevated at 80, eventually trending down to 25. Ultimately it is felt to be possible that his new stent may have occluded. Treatment options were discussed with the patient and medical management was pursued. Patient's medication adjustments were made by cardiology. Initially he required supplemental oxygen. He was aggressively diuresed and symptoms improved. Home oxygen evaluation prior to discharge demonstrated that he did not qualify for home O2; he was tolerating room air with good saturations on day of discharge. Overall, he showed clinical improvement with the therapy outlined above and detailed below, and he was hemodynamically stable for discharge 07/21/20 with instructions for short-interval follow up with cardiology. He also has outpatient sleep study scheduled in the next few weeks. He recently 07/15/20 underwent drug-eluding stent placement to distal left circumflex artery and balloon angioplasty inside the stent proximally for in-stent restenosis, by Dr Ambrocio. Presented now with shortness of breath. Initial Troponin trend > 80; 67.8; 65.1. Trop trending down to 25 prior to discharge. Management per cardiology. He was initially treated with heparin gtt. Today he remains on medical management with Brilinta, ASA. (2) Acute CHF: Qualifiers: Heart failure type: combined systolic and diastolic Qualified Code(s): I50.41 - Acute combined systolic (congestive) and diastolic (congestive) heart failure Code(s): I50.9 - Heart failure, unspecified Status: Acute Assessment and Plan: Likely contributing to his shortness of breath. LVEF noted to be 35-40%. Management per cardiology. Today he remains on FRIDA and beta blockade, lasix. Monitor renal function, I&Os, daily weights. (3) CAD (coronary artery disease): Qualifiers: Coronary Disease-Associated Artery/Lesion type: [place] artery [place] vs. transplanted heart: [place] heart Associated angina: angina presence unspecified Qualified Code(s): I25.10 - Atherosclerotic heart disease of [place] coronary artery without angina pectoris Code(s): I25.10 - Atherosclerotic heart disease of [place] coronary artery without angina pectoris Status: Acute Assessment and Plan: Management per cardiology. Continue ASA, brilinta s/p cath and stenting 07/15. See above. (4) Tobacco use: Code(s): Z72.0 - Tobacco use Status: Acute Assessment and Plan: Cessation encouraged. He was prescribed Wellbutrin and nicotine patches at last discharge. DS: Summary Time Spent with Patient Time attestation: Total time spent providing and/or coordinating discharge services: 40 minutes Exam Narrative: Exam Narrative: General: Male resting sitting up on edge of bed in no acute distress. HEENT: Normocephalic, EOMI, oral mucosa moist. Cardiovascular: Rate and rhythm are regular. Respirat
== END 2020-07-21 13:00 | disposition home or self-care (01) | DRG 280 ==
LOC: ANHED 23:37 → ANHIMU 23:43
PROVIDERS: Internal Medicine Cardiovascular Disease; Nurse Practitioner Adult Health; Physician Assistant; Admitting Provider Internal Medicine; Emergency Provider Emergency Medicine; PCP Family Medicine; Visit Provider Family Medicine
DX: I21.4 Non-ST elevation (NSTEMI) myocardial infarction (principal); I50.41 Acute combined systolic (congestive) and diastolic (congestive) heart failure; I11.0 Hypertensive heart disease with heart failure; J44.9 Chronic obstructive pulmonary disease, unspecified; I25.10 Atherosclerotic heart disease of native coronary artery without angina pectoris; Z72.0 Tobacco use
CPT/HCPCS: 36415; 71046; 71275; 80048; 80053; 81001; 83605; 83735; 83880; 84100; 84484; 85014; 85018; 85025; 85380; 85610; 85730; 87635; 92978; 93005; 93458; 93571; 94618; 94640; 96365; 96367; 96374; 96375; 99285; A9270; C1725; C1753; C1760; C1769; C1874; C1887; C1894; C8929; C9600; C9803; G0269; G0378; J0456; J0583; J0696; J1644; J1940; J2250; J3010; J7040; Q9957; Q9967; U0003

== ENCOUNTER 2020-07-23 09:51 | Outpatient (CLI) | payer OTHER, SELFPAY ==
[2020-07-23 12:22] LABS: Anion Gap 10 mmol/L (8-16); Blood Urea Nitrogen 27 mg/dL (9-20); Calcium 9.6 mg/dL (8.4-10.2); Carbon Dioxide 32 mmol/L (22-30); Chloride 97 mmol/L (98-107); Estimated Glomerular Filt Rate 56; Glucose 98 mg/dL (75-110); Magnesium 2.2 mg/dL (1.6-2.3); Potassium 4.3 mmol/L (3.4-5.0); Sodium 139 mmol/L (137-145)
== END 2020-07-23 09:52 | disposition home or self-care (01) ==
PROVIDERS: PCP Family Medicine; Visit Provider Nurse Practitioner Adult Health
DX: I50.9 Heart failure, unspecified (principal)
CPT/HCPCS: 36415; 80048; 83735

== ENCOUNTER 2020-08-01 08:02 | Outpatient (CLI) | payer OTHER, SELFPAY ==
--- NOTE | 2020-08-22 19:49 | WPDHOMESLEEP ---
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 Sleep History Miguel Yeh is a 65 yo man with rare episodes of gasping for breath at night. He does not sweat excessively at night, and does not notice his heart beating or pounding excessively at night. He occasionally falls asleep in the day, never involuntarily, and never while driving. He does not have loss of muscle tone with strong emotion, does not have daytime difficulties due to excessive sleepiness as he is retired, does not feel paralyzed on waking or falling asleep and does not have vivid dream-like scenes upon awakening or falling asleep. He is never afraid to go to sleep. He rarely has nightmares. He occasionally remembers his dreams. He occasionally has racing thoughts. He does not feel sad or depressed. He occasionally has anxiety. He denies muscular tension. He does not notice parts of his body jerking, he does not kick at night, does not have crawling and aching feelings in his legs, does not have leg pain during the night, denies morning jaw pain and and does not grind his teeth during sleep. He is not bothered by pain during the day, does not awake with pain at night, occasionally wakes up feeling stiff in the morning but does not have sore achy muscles or pain in the neck and spine. Normal bedtime is between 9 and 10:00 p.m. falling asleep within 30-45 minutes, typically waking 2 or 3 times at night, and sometimes taking up to a 1/2 hour to fall asleep again. While he wakes he goes to the bathroom. He wakes for his stay at 4:00 a.m.. Weekend schedule is the same. He estimates getting between 5 and 7 hours of sleep at night. He does take naps. A short nap may be refreshing. Most of the time he feels good in the morning. 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 November 04, 2017 BPH (benign prostatic hyperplasia) CAD (coronary artery disease) PTCA/ALISON proximal left circumflex June 17, 2013, IVUS proximal and mid left circumflex artery, IFR and IVUS guided intervention balloon angioplasty stenting med distal left circumflex artery with drug-eluting stent, balloon angioplasty of InStent restenoses of ostial proximal left circumcised CHF (congestive heart failure) echocardiogram 07 08 2020: Mild concentric left ventricular hypertrophy moderate enlargement left ventricular cavity severe global left ventricular systolic dysfunction, impaired diastolic relaxation grade 1, akinetic apical segment, mild inferior septum segment and apical septal segment COPD (chronic obstructive pulmonary disease) PFTs August 2018 demonstrated moderate ventilatory defect with severe air trapping good response to bronchodilator Eczema HLD (hyperlipidemia) HTN (hypertension) IFG (impaired fasting glucose) Tobacco use Surgical History Surgical History History of carpal tunnel surgery of right wrist History of left hip replacement (~2003) Pacemaker S/P appendectomy S/P coronary artery stent placement left circumflex artery stent and mid LAD June 17, 2013, mid distal left circumflex artery stent 07/15/2020, balloon angioplasty of InStent stenosis proximal left circumflex 07/15/2020 Status post lumbar surgery L3 through L5 laminectomy Family History Family History Sibling Hypertension Coronary artery disease Mother Carcinoma of colon Other Family history of arthritis Social History Social History Social History: primary care physician: Dr. Yusuf Jules code status: Full code Smoking packs p
[2020-08-22 21:01] VITALS: BMI 47.3
== END 2020-08-01 08:03 | disposition home or self-care (01) ==
LOC: ANHCSM 08:02
PROVIDERS: PCP Family Medicine; Visit Provider Internal Medicine Cardiovascular Disease
DX: G47.10 Hypersomnia, unspecified (principal)
CPT/HCPCS: 95806

== ENCOUNTER 2021-02-10 07:10 | Outpatient (CLI) | payer MEDICARE, SELFPAY ==
--- NOTE | ~2021-02-10 | CT_ITS ---
EXAMINATION:CT diagnostic chest wo con DATE: 02/10/2021 07:36 INDICATION: Pulmonary nodule. TECHNIQUE: Computed tomography (CT) of the chest was performed without intravenous contrast. Automate d exposure control and iterative reconstruction technique were employed. The dose-length product (DLP ) was 555.64 mGy-cm. COMPARISON: Chest CT 07/16/2020 FINDINGS: There is mild emphysema. There are small pleural effusions. There is smooth septal thickeni ng bilaterally, consistent with mild pulmonary edema. There is mild dependent atelectasis. There is a 7 mm nodule in left upper lobe, improved from 9 mm on 07/16/2020. Cardiomegaly is noted. There are co ronary artery calcifications. No pericardial effusion. There is a left chest wall pacer with leads in the right atrium and right ventricle. There is mild mediastinal lymphadenopathy. For example a right paratracheal node measures 15 x 13 mm. There are bridging endplate osteophytes at multiple levels in the spine, consistent with diffuse idiopathic skeletal hyperostosis (DISH). There is thoracic kyphos is with mild chronic anterior wedging of multiple vertebral bodies. IMPRESSION: 1. 7 mm pulmonary nodule with interval improvement, likely benign. 2. Mild pulmonary edema. 3. Small pleural effusions. 4. Mild emphysema. 5. Worsened mild mediastinal lymphadenopathy, likely reactive. Reviewed, dictated and finalized at location B.
== END 2021-02-10 07:11 | disposition home or self-care (01) ==
PROVIDERS: PCP Family Medicine; Visit Provider Nurse Practitioner Family
DX: R91.1 Solitary pulmonary nodule (principal); J90 Pleural effusion, not elsewhere classified; J43.9 Emphysema, unspecified
CPT/HCPCS: 71250

== ENCOUNTER 2021-05-12 09:10 | Outpatient (CLI) | payer MEDICARE, SELFPAY ==
--- NOTE | 2021-06-10 20:31 | WPDSLEEPSTUD ---
Sleep Study Date of Study: 05/12/21 Ordering Provider: Baljit Zaldivar APRN Interpreting Physician: Noemy Sarabia MD Sleep Study Type: CPAP Titration Height: 1.85 m Weight: 151.953 kg Body Mass Index: 44.1 Neck Circumference (inches): 20.5 [place]: 7 Reason for Sleep Study This home sleep test on 08/01/2020 shows at least moderate central sleep apnea, AHI is 26, and 81% of his apneas were central, and 56% of the night with Sascha-Darden respirations. EF is 35-40% on an echo 07/17/2020; severe left ventricular systolic dysfunction, mild concentric left ventricular hypertrophy, moderate enlargement left ventricular cavity, impaired diastolic relaxation grade II, akinetic apical segment, mild inferior septum segment and apical septal segment. He presents for a CPAP titration. Sleep History Miguel Yeh is a 65 yo man with rare episodes of gasping for breath at night. He does not sweat excessively at night, and does not notice his heart beating or pounding excessively at night. He occasionally falls asleep in the day, never involuntarily, and never while driving. He does not have loss of muscle tone with strong emotion, does not have daytime difficulties due to excessive sleepiness as he is retired, does not feel paralyzed on waking or falling asleep and does not have vivid dream-like scenes upon awakening or falling asleep. He is never afraid to go to sleep. He rarely has nightmares. He occasionally remembers his dreams. He occasionally has racing thoughts. He does not feel sad or depressed. He occasionally has anxiety. He denies muscular tension. He does not notice parts of his body jerking, he does not kick at night, does not have crawling and aching feelings in his legs, does not have leg pain during the night, denies morning jaw pain and and does not grind his teeth during sleep. He is not bothered by pain during the day, does not awake with pain at night, occasionally wakes up feeling stiff in the morning but does not have sore achy muscles or pain in the neck and spine. Normal bedtime is between 9 and 10:00 p.m. falling asleep within 30-45 minutes, typically waking 2 or 3 times at night, and sometimes taking up to a 1/2 hour to fall asleep again. While he wakes he goes to the bathroom. He wakes for his stay at 4:00 a.m.. Weekend schedule is the same. He estimates getting between 5 and 7 hours of sleep at night. He does take naps. A short nap may be refreshing. Most of the time he feels good in the morning. 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 November 04, 2017 BPH (benign prostatic hyperplasia) CAD (coronary artery disease) PTCA/ALISON proximal left circumflex June 17, 2013, IVUS proximal and mid left circumflex artery, IFR and IVUS guided intervention balloon angioplasty stenting med distal left circumflex artery with drug-eluting stent, balloon angioplasty of InStent restenoses of ostial proximal left circumcised CHF (congestive heart failure) echocardiogram 07 08 2020: Mild concentric left ventricular hypertrophy moderate enlargement left ventricular cavity severe global left ventricular systolic dysfunction, impaired diastolic relaxation grade 1, akinetic apical segment, mild inferior septum segment and apical septal segment COPD (chronic obstructive pulmonary disease) PFTs August 2018 demonstrated moderate ventilatory defect with severe air trapping good response to bronchodilator Eczema HLD (hyperlipidemia) HTN (hypertension) IFG (impaired fasting glucose) Tobacco use Surgical History Surgical History History of carpal tunnel surgery of right wrist History of left hip replacement (~2003) Pacemaker S/P appendectomy S/P coronary artery stent placement left circumflex artery stent and mid LAD June 17, 2013, mid distal left circumflex artery stent 07/15/2020, balloon angioplasty of InStent stenosi
[2021-06-24 19:32] VITALS: BMI 44.1
== END 2021-05-13 06:37 | disposition home or self-care (01) ==
LOC: ANHCSM 09:11
PROVIDERS: PCP Family Medicine; Visit Provider Nurse Practitioner Family
DX: G47.31 Primary central sleep apnea (principal)
CPT/HCPCS: 95811; 99199

== ENCOUNTER 2021-06-25 08:30 | Outpatient (RCR) | payer MEDICARE, SELFPAY ==
[2021-04-02 11:55] VITALS: BP 94/60; PULSE 76; O2SAT 96
[2021-04-02 12:17] VITALS: PULSE 63
--- NOTE | 2021-04-09 13:58 | PCCPR ---
Note sent to Dr. Luque this am regarding vtach seen on the moniter during exercise. Miguel had an appointment with Dr. Luque today and he was told to hold off on exercise for now. He is having his pacer interrogated and labs drawn.
== END 2021-06-25 12:23 | disposition home or self-care (01) ==
LOC: ANHCPREHAB 08:30
PROVIDERS: PCP Family Medicine; Visit Provider Internal Medicine Cardiovascular Disease
DX: Z95.5 Presence of coronary angioplasty implant and graft (principal)
CPT/HCPCS: 93798

== ENCOUNTER 2021-08-25 10:14 | Outpatient (CLI) | payer MEDICARE, SELFPAY ==
[2021-08-25 11:25] LABS: Hemoglobin A1C 5.8 % (<5.7)
== END 2021-08-25 10:15 | disposition home or self-care (01) ==
LOC: ANHLAB 10:16
PROVIDERS: PCP Family Medicine; Visit Provider Physician Assistant
DX: R73.01 Impaired fasting glucose (principal)
CPT/HCPCS: 36415; 83036

== ENCOUNTER 2021-09-04 06:33 | Outpatient (CLI) | payer MEDICARE, SELFPAY ==
--- NOTE | 2021-09-22 15:17 | WPDSLEEPSTUD ---
Sleep Study Date of Study: 09/04/21 <Coco Cowan, DO - Last Filed: 09/22/21 16:54> Ordering Provider: Baljit Zaldivar APRN <Coco Cowan, DO - Last Filed: 09/22/21 16:54> Interpreting Physician: Coco Cowan DO <Coco Cowan, DO - Last Filed: 09/22/21 16:54> Sleep Study Type: CPAP Titration <Coco Cowan DO - Last Filed: 09/22/21 16:54> Height: 1.83 m <Coco Cowan DO - Last Filed: 09/22/21 16:54> Weight: 163.048 kg <Coco Cowan DO - Last Filed: 09/22/21 16:54> Body Mass Index: 48.7 <Coco Cowan DO - Last Filed: 09/22/21 16:54> Neck Circumference (inches): 19.5 <Coco Cowan DO - Last Filed: 09/22/21 16:54> [place]: 9 <Coco Cowan, DO - Last Filed: 09/22/21 16:54> Reason for Sleep Study The patient had an HSAT done on 08/01/2020 that showed an AHI of 26 with 81% of apneas being central.The study showed that he spent 56% of the night with Sascha-Darden respirations. His echocardiogram on 07/17/2020 showed an EF of 35-40% so ASV is not an option. <Coco Cowan, DO - Last Filed: 09/22/21 16:54> Sleep History Miguel Yeh is a 66 y/o man with rare episodes of gasping for breath at night. He does not sweat excessively at night, and does not notice his heart beating or pounding excessively at night. He occasionally falls asleep in the day, never involuntarily, and never while driving. He does not have loss of muscle tone with strong emotion, does not have daytime difficulties due to excessive sleepiness as he is retired, does not feel paralyzed on waking or falling asleep and does not have vivid dream-like scenes upon awakening or falling asleep. He is never afraid to go to sleep. He rarely has nightmares. He occasionally remembers his dreams. He occasionally has racing thoughts. He does not feel sad or depressed. He occasionally has anxiety. He denies muscular tension. He does not notice parts of his body jerking, he does not kick at night, does not have crawling and aching feelings in his legs, does not have leg pain during the night, denies morning jaw pain and and does not grind his teeth during sleep. He is not bothered by pain during the day, does not awake with pain at night, occasionally wakes up feeling stiff in the morning but does not have sore achy muscles or pain in the neck and spine. Normal bedtime is between 9 and 10:00 p.m. falling asleep within 30-45 minutes, typically waking 2 or 3 times at night, and sometimes taking up to a 1/2 hour to fall asleep again. While he wakes he goes to the bathroom. He wakes for his stay at 4:00 a.m.. Weekend schedule is the same. He estimates getting between 5 and 7 hours of sleep at night. He does take naps. A short nap may be refreshing. Most of the time he feels good in the morning. <Coco Cowan, DO - Last Filed: 09/22/21 16:54> [facility] Past Medical History Medical History: Medical History 2nd degree AV block [employer]to's dual chamber pacemaker November 04, 2017 BPH (benign prostatic hyperplasia) CAD (coronary artery disease) PTCA/ALISON proximal left circumflex June 17, 2013, IVUS proximal and mid left circumflex artery, IFR and IVUS guided intervention balloon angioplasty stenting med distal left circumflex artery with drug-eluting stent, balloon angioplasty of InStent restenoses of ostial proximal left circumcised CHF (congestive heart failure) echocardiogram 07 08 2020: Mild concentric left ventricular hypertrophy moderate enlargement left ventricular cavity severe global left ventricular systolic dysfunction, impaired diastolic relaxation grade 1, akinetic apical segment, mild inferior septum segment and apical septal segment COPD (chronic obstructive pulmonary disease) PFTs August 2018 demonstrated moderate ventilatory defect with severe air trapping good response to bronchodilator Eczema HLD (hyperlipidemia)
[2021-09-22 15:25] VITALS: BMI 48.7
== END 2021-09-05 07:04 | disposition home or self-care (01) ==
LOC: ANHCSM 06:34
PROVIDERS: PCP Family Medicine; Visit Provider Nurse Practitioner Family
DX: G47.31 Primary central sleep apnea (principal)
CPT/HCPCS: 95811

== ENCOUNTER 2022-04-07 14:28 | Outpatient (RCR) | payer MEDICARE, SELFPAY ==
[2022-04-07] MEDS: diphenhydrAMINE HCl CAP 25 MG CAPSULE PO (14:53)
[2022-04-07] MEDS: ACETAMINOPHEN 325 MG TABLET 650 MG PO (14:53)
[2022-04-07] MEDS: FAMOTIDINE 20 MG TABLET PO (14:53)
[2022-04-07 14:55] VITALS: BP 109/54; PULSE 58; TEMP 36.5; O2SAT 99
[2022-04-07] MEDS: BEBTELOVIMAB 175 MG/2 ML VIAL IV PUSH (15:17)
[2022-04-07 15:56] VITALS: BP 113/91; PULSE 60; O2SAT 95
== END 2022-04-07 16:30 | disposition home or self-care (01) ==
LOC: AMCINF 14:28
PROVIDERS: PCP Family Medicine; Referring Provider Physician Assistant; Visit Provider Internal Medicine Hematology & Oncology
DX: U07.1 COVID-19 (principal); I10 Essential (primary) hypertension
CPT/HCPCS: A9270; M0222; Q0222

== ENCOUNTER → 2022-04-29 09:44 | Outpatient (CLI) | payer MEDICARE, SELFPAY ==
--- NOTE | ~2022-04-29 | CT_ITS ---
EXAMINATION: CT lung screening DATE: 04/29/2022 10:10 INDICATION: Personal history of nicotine dependence, prior smoker with 45 pack year history TECHNIQUE: Computed tomography (CT) of the chest was performed without intravenous contrast. The dose -length product (DLP) was 460.77 mGy-cm. Automated exposure control and iterative reconstruction tech xPeerient were employed. COMPARISON: 02/10/2021 FINDINGS: There is a stable 6 mm nodule of the left upper lobe on image 46. There is a stable 4 mm no dule of the right lower lobe on image 73. There is mild dependent atelectasis. No pleural effusion or pneumothorax. Mild emphysema is noted. A dual-lead cardiac pacemaker of the left chest wall ends wit h leads in expected locations. The heart size is normal. Calcified coronary artery atherosclerosis is noted. There appear to be coronary artery stents. There are no pathologically enlarged thoracic lymp h nodes. There are bridging osteophytes at multiple levels in the spine, consistent with diffuse idio pathic skeletal hyperostosis (DISH). IMPRESSION: 1. Lung-RADS category 2: Benign appearance or behavior. Continue annual screening with noncontrast lo w-dose chest CT in 12 months. Reviewed, dictated and finalized at location B. IMPRESSION: 1. Lung-RADS category 2: Benign appearance or behavior. Continue annual screeni ng with noncontrast low-dose chest CT in 12 months.
== END ==
PROVIDERS: PCP Family Medicine; Visit Provider Nurse Practitioner Family
DX: Z12.2 Encounter for screening for malignant neoplasm of respiratory organs (principal); Z87.891 Personal history of nicotine dependence
CPT/HCPCS: 71271

== ENCOUNTER 2022-09-17 08:16 | Outpatient (CLI) | payer MEDICARE, SELFPAY ==
--- NOTE | ~2022-09-17 | US_ITS ---
EXAMINATION: US aorta [employer] DATE: 09/20/2022 10:04 INSOLE PRESSER INDICATION: Tobacco use. Hypertension. Obesity. High cholesterol. TECHNIQUE: Grayscale, color Doppler, and pulsed Doppler images of the aorta and common iliac arteries were obtained. COMPARISON: None. FINDINGS: The proximal aorta measures 2.3 cm greatest sagittal dimension. The mid aorta measures 1.9 cm greates t sagittal dimension. The distal aorta measures 2 cm greatest sagittal dimension. The right common in ternal iliac artery measures 1.5 cm. The left common iliac artery measures 1.5 cm. IMPRESSION: 1. Normal caliber aorta without aneurysm. Reviewed, dictated and finalized at location A. LE PRESSER
== END 2022-09-17 08:17 | disposition home or self-care (01) ==
LOC: ANHIMG 08:20
PROVIDERS: PCP Family Medicine; Visit Provider Physician Assistant
DX: Z13.6 Encounter for screening for cardiovascular disorders (principal); Z72.0 Tobacco use
CPT/HCPCS: 76706

== ENCOUNTER 2023-05-02 10:00 | Outpatient (CLI) | payer MEDICARE, SELFPAY ==
--- NOTE | ~2023-05-02 | CT_ITS ---
EXAMINATION: CT lung screening DATE: 05/02/2023 10:20 INDICATION: Z87.891 - Personal history of nicotine dependence TECHNIQUE: Computed tomography (CT) of the chest was performed without intravenous contrast. Addition al 3D reconstructions utilizing coronal maximum intensity projection (MIP) were performed. Automated exposure control and iterative reconstruction technique were employed. The dose-length product was 69 6.16 mGy-cm. COMPARISON: 04/29/2022 FINDINGS: Mild emphysema. Unchanged 6 mm left upper lobe nodule on image 47, 5 mm right lower lobe nodule on im age 80 and 4 mm right lower lobe nodule on image 72. Tiny calcified nodules at the superior segment o f the right lower lobe consistent with old granulomatous disease. No new or enlarging pulmonary nodul es, pneumonia, pulmonary edema or pleural effusion. Heart size is normal. Atherosclerotic coronary ar luisa calcific lesion. Coronary artery stenting. Three lead pacemaker/AICD seen with lead tips at the right atrial appendage, apex of the right ventricle and in a coronary vein overlying the lateral wall of the left ventricle having traversed the coronary sinus. No pericardial effusion. Thoracic aorta i s normal in caliber. No pathologically enlarged thoracic lymphadenopathy. A few small low-attenuation hepatic cysts the largest measuring 1.5 cm. Mild lower thoracic kyphosis with chronic mild anterior wedging of a few lower thoracic vertebral bodies. There are bridging osteophytes at multiple levels c onsistent with diffuse idiopathic skeletal hyperostosis (DISH). IMPRESSION: 1. . Lung-RADS category 2: Benign appearance or behavior. Continue annual screening with noncontrast low-dose chest CT in 12 months. Reviewed, dictated and finalized at location A. IMPRESSION: 1. . Lung-RADS category 2: Benign appearance or behavior. Continue annual scree ryan with noncontrast low-dose chest CT in 12 months.
== END 2023-05-02 10:01 | disposition home or self-care (01) ==
PROVIDERS: PCP Family Medicine; Visit Provider Nurse Practitioner Family
DX: Z12.2 Encounter for screening for malignant neoplasm of respiratory organs (principal); Z87.891 Personal history of nicotine dependence
CPT/HCPCS: 71271

== ENCOUNTER 2023-10-21 14:00 | Outpatient (CLI) | payer MEDICARE, SELFPAY ==
--- NOTE | ~2023-10-21 | US_ITS ---
EXAMINATION: US venous doppler LE RT DATE: 10/21/2023 14:31 INDICATION: Right lower limb pain. TECHNIQUE: Grayscale ultrasound images without and with compression and Doppler ultrasound images of the right lower extremity veins were obtained. COMPARISON: Ultrasound 07/14/2020 FINDINGS: The visualized portions of right common femoral vein, profunda (deep) femoral vein, femoral vein, pop liteal vein, peroneal veins, posterior tibial veins, and greater saphenous vein outflow are patent. IMPRESSION: 1. No deep venous thrombosis. Reviewed, dictated and finalized at location A. [employer]ER
== END 2023-10-21 14:01 | disposition home or self-care (01) ==
PROVIDERS: PCP Family Medicine; Visit Provider Physician Assistant
DX: M79.604 Pain in right leg (principal); M79.89 Other specified soft tissue disorders; R79.89 Other specified abnormal findings of blood chemistry
CPT/HCPCS: 93971

== ENCOUNTER 2024-05-03 09:08 | Outpatient (CLI) | payer MEDICARE, SELFPAY ==
--- NOTE | ~2024-05-03 | CT_ITS ---
CT Scan of the Chest without Contrast: Clinical Indication: Lung cancer screening, nicotine dependence Technique: Contiguous sections were acquired throughout the chest without intravenous contrast. Dose reduction technique was used on this scan by utilizing automated exposure control and iterative recon struction technique. The dose-length product (DLP) was 632.46 mGy-cm. COMPARISON: 05/02/2023 Findings: There is no evidence of any significant mediastinal, hilar or axillary lymphadenopathy. There are ext ensive coronary artery calcifications. Pacemaker device present. There is no evidence of pleural or pericardial effusion. Stable 6 mm left upper lobe pulmonary nodule. Stable 5 mm right lower lobe pulmonary nodule (axial im age 75). Stable 2 mm right lower lobe pulmonary nodule (axial image 67). Images through the upper abdomen reveal no abnormalities. Impression: Lung RADS 2: Benign appearance. 12 month follow-up CT advised. Reviewed, dictated and finalized at [facility]. Impression: Lung RADS 2: Benign appearance. 12 month follow-up CT advised.
== END 2024-05-03 09:09 | disposition home or self-care (01) ==
LOC: ANHIMG 09:11
PROVIDERS: PCP Family Medicine; Visit Provider Nurse Practitioner Family
DX: Z12.2 Encounter for screening for malignant neoplasm of respiratory organs (principal); Z87.891 Personal history of nicotine dependence
CPT/HCPCS: 71271

== ENCOUNTER 2025-05-06 15:24 | Outpatient (CLI) | payer MEDICARE, SELFPAY ==
--- NOTE | ~2025-05-06 | CT_ITS ---
CT Scan of the Chest without Contrast: Clinical Indication: Lung cancer screening, nicotine dependence Technique: Contiguous sections were acquired throughout the chest without intravenous contrast. Dose reduction technique was used on this scan by utilizing automated exposure control and iterative recon struction technique. The dose-length product (DLP) was 559.01 mGy-cm. COMPARISON: 05/03/2024 Findings: There is no evidence of any significant mediastinal, hilar or axillary lymphadenopathy. The mediastin al soft tissues appear normal. There is no evidence of pleural or pericardial effusion. Stable 5 mm left upper lobe pulmonary nodule present (axial image 52). Minimal emphysema present. Images through the upper abdomen reveal no abnormalities. Impression: Lung RADS 2: Benign appearance. 12 month follow-up screening CT advised. Reviewed, dictated and finalized at [facility]. Impression: Lung RADS 2: Benign appearance. 12 month follow-up screening CT advised.
--- OUTSIDE RECORDS SUMMARY | 2025-05-06 15:30 | XMS_ITS | Encounter Summary ---
Author Organization [facility] Address [address] [place] [address] Phone Care Team Providers Care Mechanical Product Engineer Name Role Phone Yusuf Jules MD Primary Care Provider Unknown, Notinfile Primary Care Provider Unavail able Yusuf Jules MD Primary Care Provider Shantanu Luque MD Unavailable [phone] Encounter Details Date Type Department Care Team (Latest Contact Info) Description 07/16/2020 Orders Only [facility] Scanning, Provider Social History Tobacco Use Types Packs/Day Years Used Date Smoking Tobacco: Former Cigarettes Q uit: 02/15/2019 Smokeless Tobacco: Never Alcohol Use Standard Drinks/Week Comments Yes 1 (1 standard drink = 0.6 oz pur e alcohol) occassionally Sex and Gender Information Value Date Recorded Sex Assigned at Not on file 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 Gender Identity Not on file Sexual Orientation Not on file documented as of this encounter Plan of Treatment Not on file documented as of this encounter Procedures Procedure Name Priority Date/Time Associated Diagnosis Comments SCAN - RADIOLOGY/IMAGING 07/16/2020 SCAN - LABS 07/15/2020 CARDIOLOGY DOCUMENT SCAN 07/15/2020 documented in this encounter Results * SCAN - RADIOLOGY/IMAGING (07/16/2020) Anatomical Region Laterality Modality Other us Provider Scanning Final Result * SCAN - LABS (07/15/2020) us Provider Scanning Final Result * SCAN - CARDIOLOGY (07/15/2020) Anatomical Region Laterality Modality Other us Provider Scanning [facility] CARDIAC SERVICES PROCEDURES Edited Result - Final documented in this encounter Visit Diagnoses Not on filedocumented in this encounter Additional Health Concerns Infection Onset Date Last Indicated Resolved Time COVID19 04/06/2022 04/06/2022 04/16/2022 3:06 AM CDT documented as of this encounter Care Teams Mechanical Product Engineer Relationship Specialty Start Date End Date Yusuf Jules MD [address] [place] [address] PCP - General Family Medicine 09/08/17 08/04/20 Unknown, Notinfile PCP - General 08/05/20 02/09/21 Yusuf Jules MD [address] [place] [address] PCP - General Family Medicine 02/10/21 Shantanu Luque MD [address] [facility] [address] [place] [address] Consulting Physician Cardiology 02/13/21 documented as of this encounter
--- OUTSIDE RECORDS SUMMARY | 2025-05-06 15:30 | XMS_ITS | Encounter Summary ---
Author Organization [facility] Address [address] [place] [address] Phone Care Team Providers Care Usability Engineer Name Role Phone Yusuf Jules MD Primary Care Provider Shantanu Luque MD Unavailable [phone] Encounter Details Date Type Department Care Team (Late st Contact Info) Description 11/14/2023 Telephone [facility] Cardiology [address] [facility] 8th [place] [address] [place] [address] Shantanu Luque MD [address] [facility] [address] [place] [address] Social History Tobacco Use Types Packs/Day Years Used Date Smoking Tobacco: Former Cigarettes Q uit: 02/16/2020 Passive Smoke Exposure: Past Smokeless Tobacco: Never Alcohol Use Standard Drinks/Week Comments Yes 1 (1 standard drink = 0.6 oz pur e alcohol) occassionally AUDIT-C Answer Date Recorded Q1: How often do you have a drink containing alc ohol? Monthly or less 06/17/2022 Q2: How many drinks containi ng alcohol do you have on a typical day when you are drinking? 1 or 2 06/17/2022 Q3: How often do you have si x or more drinks on one occasion? 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
--- OUTSIDE RECORDS SUMMARY | 2025-05-06 15:30 | XMS_ITS | Clinical Summary ---
Author Organization [facility] [address] Address [address] [place] [address] Care Team Providers Care Pile Driver Name Role Phone Yusuf Jules MD Primary Care Provider Shantanu Luque MD Unavailable [phone] Allergies No known active allergies Medications multivitamin tablet tablet take 1 tablet by oral route every day with food 0 0 07/24/20 13 Active aspirin 81 mg enteric coated tabletIndication s:Myocardial Reinfarction Prevention,preve ntion of thrombosis Take 1 tablet (81 mg total) by mouth every morning Active albuterol HFA (PROVENTIL HFA,VENTOLIN HFA,PROAIR HFA) 90 mcg/actuation inhaler Inhale 2 puffs every 4 (four) hours as needed for shortness of breath or wheezing 07/21/20 20 Active nitroglycerin (NITROSTAT) 0.4 mg SL tabletIndication s:acute myocardial infarction Place 1 tablet (0.4 mg total) under the tongue every 5 (five) minutes as needed 07/21/20 20 Active Anoro Ellipta 62.5-25 mcg/actuation blister with deviceIndication s:Bronchospasm Prevention with COPD Inhale 1 puff every morning 08/19/20 20 Active triamcinolone (KENALOG) 0.1 % ointment Apply 1 application topically as needed for rash 08/29/20 20 Active polyethylene glycol (MIRALAX) 17 gram packet Take 1 packet (17 g total) by mouth daily as needed for constipation Active polycarbophil (FIBERCON) 625 mg tabletIndication s:constipation Take 1 tablet (625 mg total) by mouth every morning 3 tabs Active betamethasone valerate (VALISONE) 0.1 % ointment 02/25/20 22 Active amoxicillin 500 mg capsule 09/14/20 23 Active finasteride (PROSCAR) 5 mg tablet TAKE 1 TABLET BY MOUTH IN THE MORNING 90 tablet 3 03/20/20 24 Active gabapentin (NEURONTIN) 100 mg capsule Take 1 capsule (100 mg total) by mouth 08/29/20 24 Active spironolactone (ALDACTONE) 25 mg tablet Take 1/2 (one-half) tablet by mouth once daily 45 tablet 3 10/04/20 24 Active sacubitriL-valsa rtan (Entresto) 49-51 mg tablet Take 1 tablet by mouth twice daily 180 tablet 2 11/05/19 25 Active atorvastatin (LIPITOR) 80 mg tablet TAKE 1 TABLET BY MOUTH IN THE MORNING 90 tablet 1 12/05/19 25 Active carvediloL (COREG) 6.25 mg tablet TAKE 1 TABLET BY MOUTH TWICE DAILY WITH MEALS 180 tablet 1 12/05/19 25 Active ezetimibe (ZETIA) 10 mg tablet TAKE 1 TABLET BY MOUTH ONCE DAILY IN THE MORNING 90 tablet 1 12/05/19 25 Active potassium chloride ER 20 mEq CR tablet Take 1 tablet by mouth once daily 90 tablet 1 12/05/19 25 Active furosemide (LASIX) 40 mg tablet Take 1 tablet by mouth once daily 90 tablet 1 01/08/20 25 Active doxycycline hyclate 100 mg capsule TAKE 1 CAPSULE BY MOUTH TWICE DAILY FOR 10 DAYS 01/23/20 25 Active omeprazole (PriLOSEC) 20 mg capsule Take 1 capsule (20 mg total) by mouth daily Active cetirizine 10 mg capsule Take 10 mg by mouth daily Active apixaban (Eliquis) 5 mg tablet Take 1 tablet by mouth twice daily 180 tablet 3 03/07/20 25 Active tirzepatide (Mounjaro) 15 mg/0.5 mL pen injector injection Inject 0.5 mL (15 mg total) under the skin every 7 days 4 mL 04/15/20 25 Active dapagliflozin propanediol (FARXIGA) 10 mg tablet Take 1 tablet (10 mg total) by mouth daily 90 tablet 3 04/16/20 25 Active dapagliflozin propanediol (FARXIGA) 10 mg tablet Take 1 tablet (10 mg total) by mouth daily 100 tablet 3 02/10/20 24 025 Discontin ued(Reord er) Mounjaro 12.5 mg/0.5 mL pen injector injection INJECT 1 PEN SUBCUTANEOUSLY ONCE A WEEK 4 mL 03/11/20 25 025 Discontin ued(Thera py completed ) Hospital, Clinic, or Other Facility Administered Medication Ordered Dose Route Frequency Start Date End Date Status hyaluronate sodium, stabilized (DUROLANE) 60 mg/3 mL 60 mgIndications:Acute pain of right knee,Primary osteoarthritis of right knee 60 mg intra-artic One-Time Injection 04/29/2025 5 Ended lidocaine (XYLOCAINE) 10 mg/mL (1 %) injection 3 mLIndications:Admini stration of Local Anesthesia 3 mL One-Time Injection 04/29/2025 5 Ended Active Problems Problem Noted Date Diagnosed Date Onychomycosis 01/29/2025 Hypercholesterolemia 01/29/2025 Chronic pain of right knee 01/29/2025 Obesity 07/10/2024 Cardiac resynchronization th erapy defibrillator (GAS CUTTING MACHINE OPERATOR-D) in place 05/29/2024 Callus of toe 01/05/2024 Hammer toe 01/05/2024 Pain in toe 10/05/2023 Blister of lower leg without infection 3 Dystrophia unguium 12/26/2022 Peripheral venous insufficiency 12/26/2022 Persistent atrial fibrillation 06/15/2022 Eczema 09/06/2021 Paroxysmal ventricular tachycardia 04/11/2021 SOB (shortness of breath) 03/06/2021 Overview (03/06/2021): Added automatically from request for surgery [id number] Tobacco abuse 02/11/2021 Assessment & Plan (02/12/2021 1:57 PM CDT): - counseled cessation Assessment & Plan (02/11/2021 9:26 AM CDT): - counseled cessation Hypokalemia 02/11/2021 Assessment & Plan (01/29/2022 11:06 AM CDT): -Cont home KCl repletion Assessment & Plan (01/28/2022 4:36 PM CDT): -Cont home KCl repletion Assessment & Plan (02/12/2021 2:00 PM CDT): Serum K 3.4 -Potassium 40 BID Assessment & Plan (02/11/2021 9:28 AM CDT): Serum K 3.1 - potassium chloride 40mEq po and 40mEq IVPB - repeat bmp at 1300 Acute on chronic systolic heart failure 02/11/20 Assessment & Plan (02/12/2021 1:55 PM CDT): Warm and wet on exam - Lasix 160mg IV x 1 followed by gtt at 20mg/hr initiated with robust UOP - Continue home coreg - Not on afterload reduction at home (lisinopril stopped by Dr. Luque 12/2020) - Consider resumption of lisinopril - TTE pending - I & O, daily weight Assessment & Plan (02/11/2021 9:23 AM CDT): Warm and wet on exam - Lasix 160mg IV x 1 followed by gtt at 20mg/hr initiated with robust UOP - Continue home coreg - Not on afterload reduction at home (lisinopril stopped by Dr. Luque 12/2020) - TTE pending - I & O, daily weight COPD (chronic obstructive pulmonary disease) (CM S/HCC) 02/10/2021 Assessment & Plan (02/12/2021 1:55 PM CDT): Stable without wheezing - Continue home inhalers Assessment & Plan (02/11/2021 9:24 AM CDT): Stable without wheezing - Continue home inhalers Hyperlipidemia 02/10/2021 Assessment & Plan (01/29/2022 11:05 AM CDT): -Cont home Atorvastatin 80 + Zetia 10 Assessment & Plan (01/28/2022 4:36 PM CDT): -Cont home Atorvastatin 80 + Zetia 10 Assessment & Plan (02/12/2021 1:57 PM CDT): - continue home atorva, zetia - heart healthy diet Assessment & Plan (02/11/2021 9:24 AM CDT): - continue home atorva, zetia - heart healthy diet Complete heart block 09/23/2020 Assessment & Plan (02/12/2021 1:55 PM CDT): - s/p Dual chamber SJM PPM Assessment & Plan (02/11/2021 9:22 AM CDT): - s/p Dual chamber SJM PPM Cardiomyopathy, ischemic 09/23/2020 Assessment & Plan (01/29/2022 11:05 AM CDT): -Admitted for GAS CUTTING MACHINE OPERATOR-D upgrade -Follows with Dr. Luque and Dr. Vargas -s/p Vanc x 24 hours, Bed rest -CXR in AM without significant abnormality. -Apixaban to start 02/01 for aflutter post procedure -Cont GDMT: Carvedilol 6.25mg BID, Entresto BID, Aldactone 25 -Cont home Farxiga 10 and Lasix 80 Assessment & Plan (01/28/2022 4:59 PM CDT): -Admitted for GAS CUTTING MACHINE OPERATOR-D upgrade -Follows with Dr. Luque and Dr. Vargas -Vanc x 24 hours -Bed rest -CXR in AM -Apixaban to start 02/01 for aflutter post procedure -Admit to obs. Anticipate d/c in AM -Cont GDMT: Carvedilol 6.25mg BID, Entresto BID, Aldactone 25 -Cont home Farxiga 10 and Lasix 80 Sleep apnea 09/23/2020 Cardiac pacemaker in situ 11/12/2017 Overview (11/12/2017): [employer] Dual Pacemaker Dx; Second Degree AVB DOI 11/04/[address] Barbour. Bhaskar remote monitor ordered. JR AV block, 2nd degree 10/27/2017 Morbid obesity, unspecified obesity type 017 Assessment & Plan (02/12/2021 1:54 PM CDT): - weight loss encouraged Assessment & Plan (02/11/2021 9:24 AM CDT): - weight loss encouraged Body mass index (BMI) 40.0-44.9, adult 7 Presence of stent in coronary artery 09/08/2017 History of non-ST elevation myocardial infarctio n (NSTEMI) 09/08/2017 Essential hypertension 09/08/2017 Resolved Problems Problem Noted Date Diagnosed Date Resolved Date Coronary artery disease invo lving blackfeet coronary artery of blackfeet heart without angina pectoris 09/08/2017 02/14/2022 Assessment & Plan (01/29/2022 11:05 AM CDT): -Hold home ASA 162 + Brillinta Assessment & Plan (01/28/2022 4:36 PM CDT): -Hold home ASA 162 + Brillinta Assessment & Plan (02/12/2021 1:55 PM CDT): History of PCI of LAD and prox LCX, recent PCI of mid LCX - denies chest discomfort - Continue home ASA, brilinta, coreg, atorva, zetia Assessment & Plan (02/11/2021 9:22 AM CDT): History of PCI of LAD and prox LCX, recent PCI of mid LCX - denies chest discomfort - Continue home ASA, brilinta, coreg, atorva, zetia Encounters Date Type Department Care Team Description 04/29/2025 3:00 PM CDT Procedure visit [facility] Orthopaedic Surgery [address] [facility] 1st Floor [address] [place] [address] Cullen Turcios MD Primary osteoarthritis of right knee (Primary Dx); Acute pain of right knee 04/29/2025 2:45 PM CDT Ancillary Procedure [facility] [address] [facility] 1st [address] [place] [address] Acute pain of right knee; Primary osteoarthritis of right knee 04/29/2025 Orders Only [facility] [address] [facility] 1st [address] [place] [address] MansirParis RMA 03/21/2025 Orders Only [facility] Surgery [address] [facility] 2nd [address] [place] [address] Lia Jansen NP 03/19/2025 11:25 AM CDT Ancillary Procedure [facility] [address] [facility] 1st Floor [address] [place] [address] 03/19/2025 Telephone [facility] Surgery [id number] [place] [address] 2nd [address] [place] [address] Cullen Turcios MD 03/06/2025 Telephone [facility] Cardiology [address] [place] [address] Medical Office Building [address] [place] [address] Shantanu Luque MD Med Refill 03/05/2025 2:45 PM CDT Office Visit [facility] Cardiology [address] [place] [address] [address] [place] [address] Shantanu Luque MD Coronary artery disease involving blackfeet coronary artery of blackfeet heart without angina pectoris (Primary Dx); Mixed hyperlipidemia 03/05/2025 10:00 AM CDT Ancillary Procedure [facility] [address] [place] [address] [address] [place] [address] Presence of stent in coronary artery; Cardiomyopathy, ischemic 02/25/2025 Orders Only [facility] Card[facility] [address] [place] [address] Medical Office Building [address] [place] [address] Maday Vargas MD from Last 3 Months Immunizations Immunization Administration Dates Next Due Pfizer SARS-CoV-2 Monovalent Vaccination (12+ Yrs) PURPLE 09/01/2021,01/14/2021,12/23/2020 ZOSTER Recombinant 02/15/2018 Surgical History Surgery Date Site/Laterality Comments APPENDECTOMY 2011? CARDIAC CATHETERIZATION CORONARY STENT PLACEMENT 2003, 2014, 2019 TOTAL HIP ARTHROPLASTY 10/24/2009 - 10/23/2010 Left INSERT / REPLACE / REMOVE PACEMAKER 10/24/2017 - 11/23/2017 BACK SURGERY 10/24/2004 - 10/23/2005 Lumbar disc OR COLONOSCOPY Medical History Medical History Date Comments Hx Other Medical DJD Hx Other Medical Coronary Artery Disease/NonSTEMI Adiposity obesity Hx Other Medical dyslipidemia Hyperlipidemia Hypertension Coronary artery disease CHF (congestive heart failure) (HCC) Arrhythmia Sleep apnea uses cpap Family History Medical History Relation Name Comments Heart attack Brother 1 Sudden Cardiac Brother 1 Heart attack Brother 2 Myocardial Infa rction; Cause of : Myocardial Infarction Relation Name Status Comments Brother 1 Brother 2 Social History Tobacco Use Types Packs/Day Years [...] on file 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 Gender Identity Not on file Sexual Orientation Not on file Obstetrics History Last Filed Vital Signs Vital Sign Reading Time Taken Comments Blood Pressure 134/94 03/05/2025 11:38 AM CDT Pulse 73 03/05/2025 11:38 AM CDT Temperature 36.7 C (98.1 F) 03/05/2025 11:38 AM CDT Respiratory Rate 19 06/17/2022 8:40 AM CDT Oxygen Saturation 95% 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 Inhaled Oxygen Concentration - - Weight 154.2 kg (340 lb) 03/05/2025 11:38 AM CDT Height 182.9 cm (6') 03/05/2025 11:38 AM CDT Body Mass Index 46.11 03/05/2025 11:38 AM CDT Plan of Treatment Health Maintenance Due Date Last Done Comments Albumin Creatinine Ratio, Urine 1955 Colon Cancer Screening-Colonoscopy 1955 Depression Screening 1955 Hepatitis C Screening 1955 Prostate Cancer Screening-PSA 1955 Dilated Eye Exam 1955 Foot Exam 1955 DTaP/Tdap/Td Vaccine (1 - Tdap) 01/07/1967 Hepatitis B Screening 01/07/1974 Pneumococcal vaccine 65+ (1 of 2 - PCV) 01/07/1975 Zoster Vaccine (2 of 2) 04/12/2018 02/15/2018 Abdominal Aortic Aneurysm (A AA) Screen 01/07/2021 Well Visit 65+ 01/07/2021 Hemoglobin A1C 09/26/2021 03/27/2021 eGFR 01/28/2023 01/28/2022, 11/25, 03/06/2021, Additional history exists Fall Risk Assessment 06/17/2023 06/17/2022 Covid-19 Vaccine (2023-2 5 season) 2024 09/01/2021, 01/14/2021, 12/23/2020 Influenza Vaccine (#1) 2025 Lipid Panel 04/19/2026 04/19/2025, 02/21, 09/08/2022, Additional history exists Medical Devices Implanted Type Area Seo Analyst Device Identifier Shelf Expiration Date Model / Serial / Lot Daig Gill/[employer] Medical [id number] Angio-Seal Evolution 6fr .035in Guidewire Bypass Tube Suture - [id number] - [id number] Implanted:Qty: 1 on 03/25/2021 by Dejon Tesfaye MD at [facility] Collagen Terumo Medical Gill 10/23/2021 [id number] / [id number] / [id number] Berg V[employer] [id number] Defib Cardiac [id number] 25b85iv [place] Hf Df4 Is-4 Is-1 Cnctr - [id number] - [id number] Implanted:Qty: 1 on 01/28/2022 by Maday Vargas MD at [facility] ICD Left: Chest [employer] 11/23/2023 [id number] / [id number] / [employer] Inc Durata 6.8fr 65cm True Bipolar Active Fixation Extendable 1 Coil 7122q/65 - [id number] - [id number] Implanted:Qty: 1 on 01/28/2022 by Maday Vargas MD at [facility] Lead Left: Heart [employer] Sc Inc 06/23/2024 7122Q/65 / [id number] / [employer] Sc Inc Quartet 92cm Quadripolar Left Ventricle Lead Pacing 1458q/92 - [id number] - [id number] Implanted:Qty: 1 on 01/28/2022 by Maday Vargas MD at [facility] Lead Left: Heart [employer] Sc Inc 01/22/2024 1458Q/92 / [id number] / [id number] Absorbable Antibacterial Envelope-Large 3.3x2.9in Uhrp1525 - [id number] Implanted:Qty: 1 on 01/28/2022 by Maday Vargas MD at [facility] Other - see comments Left: Chest Medtronic Inc 11/08/2022 [id number] / / [id number] [employer]to Medical Vt Inc Terminal Quadripolar Is-1 Cap Lead 4033 - [id number] Implanted:Qty: 1 on 01/28/2022 by Maday Vargas MD at [facility] Other - see comments Left: Heart [employer] Sc Inc 08/20/2024 4033 / / [id number] Description:Capped original pacemaker RV lead Pacemaker- [id number] Implanted:2017 by Carlo Barbour MD (Quantity not on file) Pacemaker Chest [employer] Medical Second Degree AVB ASSURITY MRI 2272 / [id number] / Medtronic Usa Inc X [id number] Resolute [place] 3.5mm 2.1-2.7fr 30mm 140cm Rapid Exchange - [id number] - [id number] Implanted:Qty: 1 on 03/25/2021 by Dejon Tesfaye MD at [facility] Stent Medtronic Inc 12/03/2022 [id number] UX / [id number] / [id number] Procedures Procedure Name Priority Date/Time Associated Diagnosis Comments OH ARTHROCENTESIS ASPIR&/INJ MAJOR JT/BURSA W/US Routine 04/29/2025 3:00 PM CDT Acute pain of right knee Primary osteoarthritis of right knee POCUS ASP/INJ MAJOR JOINT Schedule Routine, Read Routine (OP Routine) 04/29/2025 2:44 PM CDT Acute pain of right knee Primary osteoarthritis of right knee POCUS ASP/INJ MAJOR JOINT Schedule Routine, Read Routine (OP Routine) 03/19/2025 11:22 AM CDT Acute pain of right knee Primary osteoarthritis of right knee NM MPI SPECT (REST AND/OR STRESS) MULTIPLE STUDIES Schedule Routine, Read Routine (OP Routine) 03/05/2025 11:48 AM CDT Presence of stent in coronary artery Cardiomyopathy, ischemic DEVICE CHECK - REMOTE Routine 02/25/2025 5:23 AM CDT EGFR Routine 01/28/2022 9:05 AM CDT HEMOGLOBIN A1C Routine 03/27/2021 9:35 AM CDT POCT LIPID PANEL Routine 07/02/2020 4:11 PM CDT Coronary artery disease involving blackfeet coronary artery of blackfeet heart without angina pectoris from Last 3 Months or Most Recently Relevant to Health Maintenance Results * OH ARTHROCENTESIS ASPIR&/INJ MAJOR JT/BURSA W/US (04/29/2025 3:00 PM CDT) Narrative Cullen Turcios MD - 04/29/2025 3:00 PM CDT Cullen Turcios MD 04/29/2025 3:41 PM Large Joint Injection w/ Ultrasound Guidance: R knee Performed by: Cullen Turcios MD Authorized by: Cullen Turcios MD Large Joint Injection/Aspiration: Consent Given by: Patient Site marked: the procedure site was marked Timeout: prior to procedure the correct patient, procedure, and site was verified Verbal consent obtained: Yes Supporting Documentation: Indications: Pain Procedure Details: Location: Knee Site: R knee Prep: patient was prepped and draped in usual sterile fashion Needle Size: 18 G Approach: Superior lateral Ultrasound guided: Yes Ultrasound guidance used for: Pre-procedure marking and real-time guidance Sterile ultrasond techniques: Sterile gel and sterile probe covers were used Medications: 3 mL lidocaine 10 mg/mL (1 %); 60 mg hyaluronate sodium, stabilized 60 mg/3 mL Patient tolerance: Patient tolerated the procedure well with no immediate complications Cullen Turcios MD IN CLINIC/BEDSIDE ORDERA BLES Final Result * POCUS ASP/INJ MAJOR JOINT (04/29/2025 2:44 PM CDT) Narrative [email or web address] - 04/29/2025 2:44 PM CDT This procedure was performed and interpreted by the provider. Please refer to the provider's procedure/OR operative note for results. Cullen Turcios MD POCUS ORDERABLES Final R esult Performing Organization Address [facility] Co de Phone Number [email or web address] * POCUS ASP/INJ MAJOR JOINT (03/19/2025 11:22 AM CDT) Narrative [facility] - 03/19/2025 11:22 AM CDT This procedure was performed and interpreted by the provider. Please refer to the provider's procedure/OR operative note for results. Cullen Turcios MD POCUS ORDERABLES Final R esult Performing Organization Address [facility] Co de Phone Number [email or web address] * NM MPI SPECT (Rest and/or Stress) Multiple Studies (03/05/2025 11:48 AM CDT) Anatomical Region Laterality Modality Body N/A Electrocardiogra phy Narrative 03/06/2025 8:49 AM CDT Table formatting from the original result was not included. [facility] [address] [address] Nuclear MPI Pharmaceutical Study Patient Name: Miguel Patiño Gender: male : 1955 Date of Study: 03/05/25 Ordering Provider: Nika Camacho NP Primary care Provider: Yusuf Jules MD Pt BMI: 48 Examination Myocardial Perfusion Imaging: Pharmacologic/Spect with Gated Imaging and Ejection Fraction Measurement. Cardiac History PCI. Reason for Examination CAD and cardiomyopathy . Cardiac Risk Factors hypertension, dyslipidemia, and diabetes mellitus. Stress Procedure Baseline or Resting EKG SR, paced, occasional PVC Pharmaceutical Parameters: Chemical Test duration: 5 min 01 sec. Baseline BP: 134 / 94 mm Hg Baseline HR: 73 /min Peak BP: 138 / 79 mm Hg Peak HR: 90 /min 59 % of PMHR HR Response to Pharmaceutical: Normal BP Response to Pharmaceutical: Normal Functional Capacity: average ST changes: None Symptoms during Pharmaceutical Injection : increased heart rate, flushing, resolved during recovery Reasons for Termination: End of Protocol Nuclear Procedure Radiopharmaceutical: 13.2 mCi Tc-99M Tetrofosmin IV for rest and 46.6 mCi Tc-99M Tetrofosmin IV for stress. Protocol: Standard myocardial perfusion images were obtained after resting injection of Tc-99M Tetrofosmin intravenously. Resting images were obtained after a 30 minutes delay. Subsequently, an intravenous infusion of 0.4 mg/5ml Regadenoson given over a 10 second injection was given under the supervision of the physician. Tc-99M tetrofosimin was injected intravenously 10-20 seconds post lexiscan/saline flush injection and standard myocardial images were obtained after a 45 minute delay. Images are obtained with a solid state camera. Rest images are obtained in the upright position and stress images are obtained in both upright and supine positions. The overall quality of the study is good. Motion correction was not performed. Regadenoson MPI Stage Time BP HR Sitting 1052 134/94 73 Regadenoson 1054 105/69 84 Recovery 1057 138/79 80 Images Interpretation Gated Spect imaging reveals a large fixed perfusion defect of severe intensity in the inferior wall. The defect is transmural in nature. There is also a large nontransmural fixed defect of severe intensity in the inferolateral and apical smith. No ischemia noted. LV wall motion abnormal with inferior and inferolateral wall severe hypokinesis. LV wall function abnormal with LVEF of 34%. No LV dilatation present. No transischemic dilatation present. Impression Pharmaceutical Myocardial perfusion imaging is abnormal. Large inferior transmural LA of severe intensity. Large inferolateral and apical nontransmural LA of severe intensity. No ischemia noted. LV wall motion abnormal with infrior and inferolateral wall severe hypokinesis. LVEF = 34% No chest pain during stress and no ecg changes. There are no previous studies available for comparison at this facility. Recommendation Continue medical therapy. Finding discussed with the patient personally. Stress myocardial perfusion imaging has a known 10-15% false negative rate and a small (5-10%) false positive rate. Stress test supervised by Nika Camacho NP and images interpreted by Shantanu Luque MD. us Nika Camacho NP IMG NM PROCEDURES Final Resul t * DEVICE CHECK - REMOTE (02/25/2025 5:23 AM CDT) Anatomical Region Laterality Modality Other 02/25/2025 5:23 AM CDT Narrative 02/28/2025 8:13 AM CDT Interpretation Summary: Battery and Leads (BL) Normal parameters noted on battery and lead(s) --- 3.7 years remaining (this is an estimate based on prior usage) Presenting Rhythm (OH) Atrial Pacing-BiVentricular Pacing (AP-BiVP) --- rate 60 Arrhythmic events (AE) No new arrhythmic events in monitoring period Anticoagulation (AC) Patient on anticoagulant therapy Patient prescribed Apixaban (Eliquis) Transmission Information (TI) Device Summary Report Procedure Note Maday Vargas MD - 02/28/2025 Interpretation Summary: Battery and Leads (BL) Normal parameters noted on battery and lead(s) --- 3.7 years remaining(this is an estimate based on prior usage) Presenting Rhythm (OH) Atrial Pacing-BiVentricular Pacing (AP-BiVP) --- rate 60 Arrhythmic events (AE) No new arrhythmic events in monitoring period Anticoagulation (AC) Patient on anticoagulant therapy Patient prescribed Apixaban (Eliquis) Transmission Information (TI) Device Summary Report us Maday Vargas MD [facility] PROCEDURES Final Result * (ABNORMAL) eGFR (01/28/2022 9:05 AM CDT) eGFR 74(L) 90 - 130 mL/min/1. 73 m2 [facility] Comment: Interpretive Data Reference Interval Normal >/= 90 mL/min/1.73m2 Mildly decreased* 60 - 89 mL/min/1.73m2 Mildly to moderately decreased 45 - 59 mL/min/1.73m2 Moderately to severely decreased 30 - 44 mL/min/1.73m2 Severely decreased 15 - 29 mL/min/1.73m2 Kidney Failure < 15 mL/min/1.73m2 *Relative to young adult level Estimated glomerular filtration rate is determined by the 2020 CKD-EPI equation recommended by the National Kid[employer] (A Unifying Approach to GFR Estimation: Recommendations of the NKF-ASK Task Force on Reassessing the Inclusion of Race in Diagnosing Kidney Disease, JASN 2020). The CKD-EPI equation should not be used for patients with unstable renal function and has not been validated in children and those over 70. Current interpretive data was last reviewed 2021. Blood 01/28/2022 9:05 AM CDT 01/28/2022 9:23 AM CDT us Jana Joseph SPECIAL POPULATION PARAPROFESSIONAL LAB BLOOD ORDERABLES Final Re sult [facility] Department [place] [address] * (ABNORMAL) Hemoglobin A1c (03/27/2021 9:35 AM CDT) Hgb A1C 6.0(H) 4.0 - 5.6 % [facility] Estimated Average Glucose 126 mg/dL [facility] Comment: The ADA recommends reporting an estimated Average Glucose (eAG) with all Hemoglobin A1c results using the equation derived from a study of 507 normal and diabetic adults. Minority populations were underrepresented and children were not included. (Diabetes Care 2020; 43(S1): S66-S76). The eAG is not equivalent to a fasting glucose. Blood specimen (specimen) 03/27/2021 9:35 AM CDT 03/27/2021 10:12 AM CDT us Shantanu Luque MD LAB BLOOD ORDERABLES Final Res ult [facility] Department [place] [address] * POCT lipid panel (07/02/2020 4:11 PM CDT) Cholesterol, POC 178 mg/dL HDL, POC 48 mg/dL Triglycerides, POC 179 mg/dL LDL Cholesterol POC 95 mg/dL Chol/HDL Ratio, POC 3.7 Non-HDL Cholesterol, POC 131 mg/dL Cholesterol Total, POC 178 mg/dL Capillary blood 07/02/2020 4 :11 PM CDT us Arya Ambrocio MD POINT OF CARE TEST ORDERABLES Fi nal Result from Last 3 Months or Most Recently Relevant to Health Maintenance Insurance [facility] [address] MEDICARE COMMERCIAL GENERIC AETNA AETNA SENIOR SUPPLEMENT AETNA MEDICARE GOLD MEDICARE AET SENIOR SUPPLEMENT AETNA MEDICARE GOLD [id number] Advance Directives For more information, please contact: [phone] Documents on File Type Date Recorded 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 02/01/2022 10:56 AM GERONIMO R OF [employer] * Full Code (Latest Code Status on File) Date Activated Date Inactivated Comments 01/28/2022 4:28 PM 01/29/2022 2:24 PM * Full Code Date Activated Date Inactivated Comments 01/28/2022 4:27 PM 01/28/2022 4:28 PM * Full Code Date Activated Date Inactivated Comments 03/25/2021 5:27 PM 03/28/2021 6:40 PM * Full Code Date Activated Date Inactivated Comments 03/25/2021 2:48 PM 03/25/2021 5:26 PM * Full Code Date Activated Date Inactivated Comments 02/10/2021 7:54 PM 02/13/2021 8:27 PM Care Teams Pile Driver Relationship Specialty Start Date End Date Yusuf Jules MD [address] [place] [address] PCP - General Family Medicine 02/10/21 Shantanu Luque MD [address] [facility] [address] [place] [address] Consulting Physician Cardiology 02/13/21
--- OUTSIDE RECORDS SUMMARY | 2025-05-06 15:30 | XMS_ITS | Encounter Summary ---
Author Organization [facility] Address [address] [place] [address] Phone Care Team Providers Care Seismic Prospecting Observer Helper Name Role Phone Yusuf Jules MD Primary Care Provider Shantanu Luque MD Unavailable [phone] Encounter Details Date Type Department Care Team (Late st Contact Info) Description 04/09/2021 Orders Only [facility] Cardiology [address] [facility] Advanced Medicine 8th [place] [address] [place] [id number] Maday Vargas MD [address] [facility] [address] [place] [address] Social History Tobacco Use Types Packs/Day Years Used Date Smoking Tobacco: Former Cigarettes Q uit: 02/16/2020 Smokeless Tobacco: Never Alcohol Use Standard Drinks/Week Comments Yes 1 (1 standard drink = 0.6 oz pur e alcohol) occassionally AUDIT-C Answer Date Recorded Q1: How often do you have a drink containing alc ohol? Monthly or less 03/25/2021 Q2: How many drinks containi ng alcohol do you have on a typical day when you are drinking? 1 or 2 03/25/2021 Q3: How often do you have si x or more drinks on one occasion? 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 Gender Identity Not on file Sexual Orientation Not on file documented as of this encounter Plan of Treatment Not on file documented as of this encounter Visit Diagnoses Not on filedocumented in this encounter Additional Health Concerns Infection Onset Date Last Indicated Resolved Time COVID19 04/06/2022 04/06/2022 04/16/2022 3:06 AM CDT documented as of this encounter Care Teams Seismic Prospecting Observer Helper Relationship Specialty Start Date End Date Yusuf Jules MD [address] [place] [id number] PCP - General Family Medicine 02/10/21 Shantanu Luque MD [address] [facility] [address] [place] [address] Consulting Physician Cardiology 02/13/21 documented as of this encounter
--- OUTSIDE RECORDS SUMMARY | 2025-05-06 15:30 | XMS_ITS | Clinical Summary ---
Author Organization [facility] Address [facility] [place] [address] Care Team Providers Care Towel Cabinet Repairer Name Role Phone Yusuf Jules MD Primary Care Provider [phone] Encounters Date Type Department Care Team Description 04/19/2025 10:30 AM CDT - 04/19/2025 11:59 PM CDT Hospital Encounter [facility] [address] [facility] [place] [address] Denice Ibrahim PA-C Discharge Disposition: Home or Self Care (Routine Discharge) 04/19/2025 Orders Only [facility] [address] [facility] [place] [address] Denice Ibrahim PA-C 04/19/2025 Travel from Last 3 Months Social History Tobacco Use Types Packs/Day Years Used Date Smoking Tobacco: Smoker, Current Status Unknown Smokeless Tobacco: Never Sex and Gender Information Value Date Recorded Sex Assigned at Not on file Legal Sex Male 2:58 AM CDT Gender Identity Not on file Sexual Orientation Not on file Last Filed Vital Signs Vital Sign Reading Time Taken Comments Blood Pressure 110/51 10/12/2020 2:51 PM EPIC KALEIDOSCOPE ANALYST Pulse 79 10/12/2020 1:28 PM EPIC KALEIDOSCOPE ANALYST Temperature 36 C (96.8 F) 10/12/2020 1:28 PM EPIC KALEIDOSCOPE ANALYST Respiratory Rate 22 10/12/2020 1:28 PM EPIC KALEIDOSCOPE ANALYST Oxygen Saturation 95% 10/12/2020 2:50 PM EPIC KALEIDOSCOPE ANALYST Inhaled Oxygen Concentration - - Weight 134.3 kg (296 lb) 10/12/2020 1:28 PM EPIC KALEIDOSCOPE ANALYST Height 185.4 cm (6' 1) 10/12/2020 1:28 PM EPIC KALEIDOSCOPE ANALYST Body Mass Index 39.05 10/12/2020 1:28 PM EPIC KALEIDOSCOPE ANALYST Plan of Treatment Health Maintenance Due Date Last Done Comments ASCVD Statin 1955 Colorectal Cancer Screening Colonoscopy (10 Years) 1955 Kidney Health Evaluation 1955 Diabetes: Retinopathy Eye Exam 01/07/1974 Hepatitis C 01/07/1974 DTaP, Tdap and Td Vaccines (1 - Tdap) 01/07/1975 Pneumococcal Vaccine: 50+ Years (1 of 2 - PCV) 01/07/1975 RSV Immunization or 60+ Years (1 - Risk 60-74 years 1-dose series) 2016 Zoster Vaccines (3 of 3) 04/12/2018 018, 02/15/2018, 12/01/2017 Annual Medicare Wellness Visit 01/07/2021 COVID-19 Vaccine ( season) 2024 09/01/2021, 01/14/2021, 12/23/2020 Hemoglobin A1C 10/19/2025 04/19/2025, 1105/2024, 03/06/2024, Additional history exists Lipid Panel 04/19/2026 04/19/2025, 02/21, 09/08/2022, Additional history exists Meningococcal B Vaccine Aged Out No l onger eligible based on patient's age to complete this topic Meningococcal Vaccine Aged Out No zane leticia eligible based on patient's age to complete this topic RSV Immunizations Under 20 Months Aged Out No longer eligible based on patient's age to complete this topic Procedures Procedure Name Priority Date/Time Associated Diagnosis Comments LIPID PANEL Routine 04/19/2025 10:34 AM CDT Hyperlipidemia Atherosclerotic heart disease of [place] coronary artery without angina pectoris Nocturia Impaired fasting glucose Essential (primary) hypertension Heart failure, unspecified ([facility] HHS/HCC) Prostate cancer screening THYROID STIM HORMONE TSH Routine 04/19/2025 10:34 AM CDT Hyperlipidemia Atherosclerotic heart disease of [place] coronary artery without angina pectoris Nocturia Impaired fasting glucose Essential (primary) hypertension Heart failure, unspecified ([facility] HHS/HCC) Prostate cancer screening PROSTATE SPECIFIC ANTIGEN,SCREENING Routine 04/19/2025 10:34 AM CDT Hyperlipidemia Atherosclerotic heart disease of [place] coronary artery without angina pectoris Nocturia Impaired fasting glucose Essential (primary) hypertension Heart failure, unspecified ([facility] HHS/HCC) Prostate cancer screening HEMOGLOBIN, GLYCOSYLATED Routine 04/19/2025 10:34 AM CDT Hyperlipidemia Atherosclerotic heart disease of [place] coronary artery without angina pectoris Nocturia Impaired fasting glucose Essential (primary) hypertension Heart failure, unspecified ([facility] HHS/HCC) Prostate cancer screening CBC, AUTO, NO DIFF Routine 04/19/2025 10 :34 AM CDT Hyperlipidemia Atherosclerotic heart disease of [place] coronary artery without angina pectoris Nocturia Impaired fasting glucose Essential (primary) hypertension Heart failure, unspecified ([facility] HHS/HCC) Prostate cancer screening COMPREHENSIVE METABOLIC PANEL Routine 04/19/2025 10:34 AM CDT Hyperlipidemia Atherosclerotic heart disease of [place] coronary artery without angina pectoris Nocturia Impaired fasting glucose Essential (primary) hypertension Heart failure, unspecified ([facility] HHS/HCC) Prostate cancer screening from Last 3 Months Results * HEMOGLOBIN, GLYCOSYLATED (04/19/2025 10:34 AM CDT) HGB A1C 5.5 <5.7 % 04/19/2025 7:43 PM CDT [facility] Comment: INCREASED RISK OF DIABETES <5.7% NON-DIABETES 5.7-6.4% INCREASED RISK FOR FUTURE DIABETES > OR = 6.5 CONSISTENT WITH DIABETES STANDARDS OF MEDICAL CARE IN DIABETES-2010 DIABETES CARE, 33(SUPP 1): S1-S61,2010 ESTIMATED AVG GLUCOSE 111 mg/dL 04/19/2025 7:43 PM CDT [facility] 04/19/2025 10:3 4 AM CDT us Denice Ibrahim PA-C LABORATORY Final Resu lt [facility] [address] [place] [address], [place] [phone] * PROSTATE SPECIFIC ANTIGEN,SCREENING (04/19/2025 10:34 AM CDT) PSA 0.18 <4.00 NG/ML 04/19/2025 11:18 AM CDT [facility] Comment: Test was performed using the Siemens method. Results obtained with other assay methods or kits cannot be used interchangeably with results obtained by the Siemens method. 04/19/2025 10:3 4 AM CDT us Denice Ibrahim PA-C LABORATORY Final Resu lt [facility] [address] [place] [address], [place] [phone] * (ABNORMAL) COMPREHENSIVE METABOLIC PANEL (04/19/2025 10:34 AM CDT) Pathologist [facility] GLUCOSE 102(H) 70 - 99 MG/DL 04/19/2025 11:18 AM CDT [facility] BUN 16 7 - 18 MG/DL 04/19/2025 11:18 AM CDT [facility] CREATININE S/P/B 1.02 0.7 - 1.3 MG/DL 04/19/2025 11:18 AM CDT [facility] SODIUM S/P/B 136 136 - 145 MMOL/L 04/19/2025 11:18 AM CDT [facility] POTASSIUM S/P/B 4.1 3.5 - 5.1 MMOL/L 04/19/2025 11:18 AM CDT [facility] CHLORIDE S/P/B 102 100 - 108 MMOL/L 04/19/2025 11:18 AM CDT [facility] CO2 27.4 21 - 32 MMOL/L 04/19/2025 11:18 AM [facility] CALCIUM S/P/B 9.1 8.5 - 10.1 MG/DL 04/19/2025 11:18 AM [facility] BILIRUBIN TOTAL S/P/B 0.7 0.2 - 1.2 MG/DL 04/19/2025 11:18 AM [facility] TOTAL PROTEIN S/P/B 7.7 6.4 - 8.2 G/DL 04/19/2025 11:18 AM [facility] ALBUMIN S/P/B 3.8 3.4 - 5.0 G/DL 04/19/2025 11:18 AM [facility] AST 21 15 - 37 U/L 04/19/2025 11:18 AM [facility] ALT 44 16 - 60 U/L 04/19/2025 11:18 AM [facility] ALKALINE PHOSPHATASE S/P/B 67 50 - 136 U/L 04/19/2025 11:18 AM [facility] ANION GAP 6.6 5 - 15 MMOL/L 04/19/2025 11:18 AM [facility] BUN CREATININE RATIO 15.7 6 - 26 04/19/2025 11:18 AM [facility] A/G RATIO 1.0 1.0 - 2.0 RATIO 04/19/2025 11:18 AM [facility] GFR ESTIMATE 80(L) >90 ML/MIN/1.7 3 M2 04/19/2025 11:18 AM [facility] Comment: NOTE: eGFR is not calculated for patients <18 years of age. This is an estimated GFR calculation using the new CKD EPI creatinine equation without race and so does not require a correction factor for race. This estimated GFR should not be used for calculating drug doses. 04/19/2025 10:3 4 AM CDT us Denice Ibrahim PA-C LABORATORY Final Resu lt [facility] [address] [place] [address], [place] [phone] * LIPID PANEL (04/19/2025 10:34 AM CDT) CHOLESTEROL 116 <200.0 MG/DL 04/19/2025 11:18 AM CDT [facility] TRIGLYCERIDES 61 <150 MG/DL 04/19/2025 11:18 AM CDT [facility] HDL 47 >40.0 MG/DL 04/19/2025 11:18 AM T [facility] LDL (CALCULATED) 57 <100 MG/DL 04/19/20 11:18 AM T [facility] Comment:CALCULATED USING THE FRIEDEWALD EQUATION NON HDL CHOLESTEROL 69 <130 MG/DL 04/19 11:18 AM T [facility] CHOL/HDL RATIO 2.5 0.0 - 4.5 04/19/2025 11:18 AM [facility] VLDL CALCULATION 12 5 - 55 MG/DL 04/19/2025 11:18 AM T [facility] LIPID INTERPRETATION 04/19/2025 11:18 AM T [facility] Comment: [facility] REPORT RECOMMENDATIONS: ADULT CHILD LOW RISK: CHOLESTEROL <200 <170 TRIGLYCERIDE <150 --- HDL >=60 --- LDL <100 <110 BORDERLINE: CHOLESTEROL 200-239 170-199 TRIGLYCERIDE 150-199 --- HDL 40-59 --- LDL 100-159 110-129 HIGH RISK: CHOLESTEROL >=240 >=200 TRIGLYCERIDE >=200 --- HDL <40 --- LDL >=160 >=130 04/19/2025 10:3 4 AM CDT us Denice Ibrahim PA-C LABORATORY Final Resu lt [facility] [address] [place] [address], [place] [phone] * CBC, AUTO, NO DIFF (04/19/2025 10:34 AM CDT) WBC 6.40 4.4 - 11.0 x10'3/uL 04/19/2025 10:53 AM CDT [facility] RBC 5.34 4.50 - 5.90 x10'6/uL 04/19/2025 10:53 AM CDT [facility] HGB 16.5 14.0 - 17.5 G/DL 04/19/2025 10:53 AM CDT [facility] HCT 49.3 41.5 - 50.4 % 04/19/2025 10:53 AM CDT [facility] MCV 92.3 80.0 - 96.0 FL 04/19/2025 10:53 AM CDT [facility] MCH 30.9 26.5 - 31.4 PG 04/19/2025 10:53 AM CDT [facility] MCHC 33.5 31.9 - 34.8 G/DL 04/19/2025 10:53 AM CDT [facility] RDW 13.0 12.3 - 14.3 % 04/19/2025 10:53 AM CDT [facility] PLT 201 151 - 353 x10'3/uL 04/19/2025 10:53 AM CDT [facility] MPV 11.1 9.7 - 11.9 FL 04/19/2025 10:53 AM CDT [facility] 04/19/2025 10:3 4 AM CDT Denice Ibrahim PA-C LABORATORY Final Resu lt Performing Organization Address City/[facility]/ZIP Co de Phone Number [facility] [address] [place] [address], [place] [phone] * THYROID STIM HORMONE TSH (04/19/2025 10:34 AM CDT) TSH 1.727 0.358 - 3.74 uIU/ML 04/19/2025 11:18 AM CDT [facility] Comment: HIGH DOSES OF BIOTIN MAY INTERFERE WITH THIS TEST RESULT. CORRELATION TO CLINICAL HISTORY AND PRESENTATION RECOMMENDED. 04/19/2025 10:3 4 AM CDT Denice Ibrahim PA-C LABORATORY Final Resu lt Performing Organization Address [facility] Co de Phone Number [facility] [address] [place] [address], [place] [phone] from Last 3 Months Insurance [employer] Care Teams Towel Cabinet Repairer Relationship Specialty Start Date End Date Yusuf Jules MD [address] [place] [address] PCP - General FAMILY PRACTICE 08/11/20
--- OUTSIDE RECORDS SUMMARY | 2025-05-06 15:30 | XMS_ITS | Data Portability ---
Author Organization [place] [facility] [place] [employer] Penemarie K Murphy, Main Office Address [address] [place] [address] Care Team Providers Care Tank Bottom Assembler Name Role Phone KARINE GRAYSON Primary Care Provider KARINE GRAYSON Referring Provider Assessment Encounter Date Assessment Date Assessment LastModified by Organization Details LastModified Time 10/08/2024 10/08/2024 This note is dictated and transcribed by [employer]. Rug Cutter Helper variances may occur. Despite proofreading, typographical errors may occur. Occasional wrong-word or 'donax-f-zqmj' substitutions may have occurred due to the inherent limitations of voice recording. Read the chart carefully and recognize, using context, where substitutions have occurred. Not available 10/08/2024 15:25:29 01/17/2025 01/17/2025 This note is dictated and transcribed by [employer]. Rug Cutter Helper variances may occur. Despite proofreading, typographical errors may occur. Occasional wrong-word or 'yjhdk-r-yzna' substitutions may have occurred due to the inherent limitations of voice recording. Read the chart carefully and recognize, using context, where substitutions have occurred. Not available 01/17/2025 17:32:32 01/22/2025 01/22/2025 This note is dictated and transcribed by [employer]. Rug Cutter Helper variances may occur. Despite proofreading, typographical errors may occur. Occasional wrong-word or 'vyvfn-r-copf' substitutions may have occurred due to the inherent limitations of voice recording. Read the chart carefully and recognize, using context, where substitutions have occurred. Not available 01/22/2025 11:39:12 01/31/2025 01/31/2025 This note is dictated and transcribed by [employer]. Rug Cutter Helper variances may occur. Despite proofreading, typographical errors may occur. Occasional wrong-word or 'zidxn-d-nhjv' substitutions may have occurred due to the inherent limitations of voice recording. Read the chart carefully and recognize, using context, where substitutions have occurred. Not available 01/31/2025 15:07:54 02/28/2025 02/28/2025 This note is dictated and transcribed by [employer]. Rug Cutter Helper variances may occur. Despite proofreading, typographical errors may occur. Occasional wrong-word or 'rnzhk-w-cikc' substitutions may have occurred due to the inherent limitations of voice recording. Read the chart carefully and recognize, using context, where substitutions have occurred. [email or web address] Not available 02/28/2025 15:09:07 Plan of Treatment Reminders Order Date Submit Date Provider Last Modified By Organization Details Last Modified Time Details Appointments Establish ed Patient 15 2024 04:00P M Weston Kingsley DPM Not available Not available Not available Lab None recorded. Referral None recorded. Procedures None recorded. Surgeries None recorded. Imaging None recorded. Medication Orders doxycycli ne hyclate 100 mg capsule 2024 025 [facility], [address], [address], 01/22/2025 11:41:47 Patient TargetsNo targets recorded. Patient InstructionsNo instructions recorded. Reason for Referral None Reported. Problems Name Problem SNOMED Code Status Onset Date Resolution Date Notes Provider Name and Address Organization Details Recorded Time Hyperchole sterolemia 71057307 Active Not Available [facility] 3 22:44:16 Eczema 50811891 Active 2020 Not Available [facility] 3 22:44:16 Dystrophia unguium 55227250 Active 2022 Weston Kingsley DPM [address] [facility] [address], [place], [address] , [facility] [employer] [facility] 3 16:02:32 Peripheral venous insufficie ncy 58164833 Active 2022 Weston Kingsley DPM [address], [place], [address] , [facility] 3 16:02:45 Unable to cut own toenails 299815991 Active 2022 Weston Kingsley DPM [address], [place], [address] , [facility] 3 16:02:55 Pain in toe 349828153 Active 2022 Weston Kingsley DPM [address], [place], [address] , [facility] 3 14:31:07 Callosity on toe 773468089 Active 2023 Weston Kingsley DPM [address], [place], [address] , [facility] 4 14:14:45 Hammer toe 854975045 Active 2023 Weston Kingsley DPM [address], [place], [address] , [facility] [facility] 5 15:09:14 Pain in toe 660448376 Active 2023 Weston Kingsley DPM [address], [place], [address] , [facility] 4 08:49:50 Obesity 039336065 Active 2023 Weston Kingsley DPM [address], [place], [address] , [facility] 4 08:50:01 Ingrowing toenail 073911441 Active 2023 Weston Kingsley DPM [address], [place], [address] , [facility] 4 15:25:39 Hammer toe 893199511 Active 2024 Weston Kingsley DPM [address], [place], [address] , [employer] [facility] 5 17:32:39 Bilateral acquired mallet toe 9208449617383 9109 Active 2024 Weston Kingsley DPM [address], [place], [address] , [employer] [facility] Penem[facility] K Murphy 5 17:33:16 Blister of toe with infection 38347493 Active 2024 Weston Kingsley DPM [address], [place], [address] , [employer] [facility]em[facility] K Murphy 5 11:39:19 Ulcer of toe 504758161 Active 2024 Weston Kingsley DPM [address], [place], [address] , [employer] [facility] Penem[facility] K Murphy 5 11:39:30 Problem Notes None recorded. Procedures Surgical History Date Name Laterality Status Provider Name and Address Organization Details Recorded Time 5 Callus Debridement, One completed Weston Kingsley DPM [address], [place], [address], [employer] [facility]em[facility] K Murphy 02/18/2025 09:49:35 5 Wound Care-Podiatry completed Weston Kingsley DPM [address], [place], [address], [employer] [facility] Penem[facility] K Murphy 01/23/2025 09:43:00 5 Nail Debridement completed [address], [place], [address], [employer] [facility] Penemarie K Murphy 01/17/2025 17:32:27 4 Nail Debridement completed Weston Kingsley DPM [address], [place], [address], [employer] [facility] 10/08/2024 15:25:25 4 Nail Debridement completed Weston Kingsley DPM [address], [place], [address], [facility] [employer] [facility] [employer] [facility] 07/10/2024 08:48:50 4 Nail Debridement completed Weston Kingsley DPM [address], [place], [address], [facility] [employer] [facility] [employer] [facility] 04/19/2024 14:31:47 4 Nail Debridement completed Weston Kingsley DPM [address], [place], [address], [facility] [employer] [facility] [employer] [facility] 01/05/2024 14:14:20 4 Callus Debridement 2-4 completed Weston Kingsley DPM [address], [place], [address], [facility] [employer] [facility] [employer] Penemarie K Murphy 01/05/2024 14:14:32 3 Nail Debridement completed Weston Kingsley DPM [address], [place], [address], [facility] [employer] [facility] [employer] [facility]em[facility] K [facility] 10/06/2023 14:30:51 3 Nail Debridement completed Weston Kingsley DPM [address], [place], [address], [employer] [facility] [employer] [facility] 07/07/2023 14:47:48 3 Wound Care-Podiatry completed Weston Kingsley DPM [address], [place], [address], [facility] [employer] [facility] [employer] [facility] 07/07/2023 15:43:25 3 Nail Debridement completed Weston Kingsley DPM [address], [place], [address], [facility] [employer] [facility] [employer] Penemarie K Murphy 04/04/2023 14:23:53 3 Nail Debridement completed Weston Kingsley DPM [address], [place], [address], [facility] [employer] [facility] [employer] Penemarie K Murphy 12/27/2022 16:02:27 Imaging Results None recorded. Procedure Notes None recorded. Medical Equipment None Reported. Medications Name Sig Start Date Stop Date Status Note LastModified by Organization Details LastModified Time amoxicillin 500 mg capsule TAKE FOUR CAPSULES BY MOUTH ONE HOUR BEFORE APPOINTME NT active Not Available Not Available No t Available furosemide 40 mg tablet TAKE 1 TABLET BY MOUTH ONCE DAILY active Not Available Not Available No t Available metolazone 2.5 mg tablet TAKE 1 TABLET BY MOUTH DAILY FOR 7 DAYS. PLEASE TAKE 30 MINUTES PRIOR TO YOUR LASIX 01/04 completed Not Available Not Available Not Available betamethaso ne valerate 0.1 % topical ointment APPLY TO AFFECTED AREA OF TRUNK AND EXTREMITI ES TWICE DAILY NEEDED 04/19 completed Not Available Not Available Not Available atorvastati n 80 mg tablet TAKE 1 TABLET BY MOUTH IN THE MORNING active Not Available Not Available No t Available carvedilol 6.25 mg tablet TAKE 1 TABLET BY MOUTH TWICE DAILY WITH MEALS active Not Available Not Available No t Available doxycycline hyclate 100 mg capsule TAKE 1 CAPSULE BY MOUTH TWICE DAILY FOR 10 DAYS active Not Available Not Available No t Available lisinopril 20 mg tablet Take 1 tablet every day by oral route. 04/19 completed Not Available Not Available Not Available sulfamethox azole 800 mg-trimetho prim 160 mg tablet TAKE 1 TABLET BY MOUTH TWICE DAILY 01/04 completed Not Available Not Available Not Available aspirin 81 mg tablet,live yed release Take 1 tablet every day by oral route. 2020 active Not Available Not Available Not Avai lable triamcinolo ne acetonide 0.1 % topical cream APPLY CREAM EXTERNALL Y TO AFFECTED AREA TWICE DAILY NEEDED active Not Available Not Available No t Available spironolact one 25 mg tablet TAKE 1/2 (ONE-HALF ) TABLET BY MOUTH ONCE DAILY. active Not Available Not Available No t Available carvedilol 3.125 mg tablet Take 1 tablet twice a day by oral route. 01/04 completed Not Available Not Available Not Available potassium chloride ER 20 mEq tablet,exte nded release(par t/cryst) TAKE 1 TABLET BY MOUTH ONCE DAILY active Not Available Not Available No t Available furosemide 80 mg tablet 01/04 completed Not Available Not Available Not Available cephalexin 500 mg capsule TAKE 1 CAPSULE BY MOUTH EVERY 6 HOURS DIRECTED FOR 7 DAYS 01/04 completed Not Available Not Available Not Available triamcinolo ne acetonide 0.1 % topical ointment APPLY TO AFFECTED AREA TWICE DAILY NEEDED active Not Available Not Available No t Available lisinopril 10 mg tablet TAKE 1 TABLET BY MOUTH ONCE DAILY 01/04 completed Not Available Not Available Not Available nitroglycer in 0.4 mg sublingual tablet DISSOLVE ONE TABLET UNDER THE TONGUE EVERY 5 MINUTES NEEDED FOR CHEST PAIN. DO NOT EXCEED A TOTAL OF 3 DOSES IN 15 MINUTES. IF NO RELIEF CALL 911 active Not Available Not Available No t Available betamethaso ne dipropionat e 0.05 % topical cream APPLY CREAM TOPICALLY TO SKIN RASH ON BOTH FEET ONCE DAILY NEEDED 01/04 completed Not Available Not Available Not Available montelukast 10 mg tablet TAKE 1 TABLET BY MOUTH ONCE DAILY 04/19 completed Not Available Not Available Not Available lisinopril 5 mg tablet TAKE 1 TABLET BY MOUTH EVERY DAY 01/04 completed Not Available Not Available Not Available gabapentin 100 mg capsule TAKE 2 CAPSULES BY MOUTH TWICE DAILY active Not Available Not Available No t Available metoprolol succinate ER 25 mg tablet,exte nded release 24 hr TAKE 1 TABLET BY MOUTH ONCE DAILY 01/04 completed Not Available Not Available Not Available clobetasol 0.05 % topical ointment PLEASE SEE ATTACHED FOR DETAILED DIRECTION S 04/19 completed Not Available Not Available Not Available albuterol sulfate HFA 90 mcg/actuati on aerosol inhaler INHALE 2 PUFFS BY MOUTH EVERY 6 HOURS NEEDED FOR SHORTNESS OF BREATH active Not Available Not Available No t Available finasteride 5 mg tablet TAKE 1 TABLET BY MOUTH ONCE DAILY active Not Available Not Available No t Available ezetimibe 10 mg tablet TAKE 1 TABLET BY MOUTH ONCE DAILY IN THE MORNING active Not Available Not Available No t Available eszopiclone 2 mg tablet 01/04 completed Not Available Not Available Not Available Brilinta 90 mg tablet TAKE 1 TABLET BY MOUTH EVERY 12 HOURS 04/19 completed Not Available Not Available Not Available Eliquis 5 mg tablet TAKE 1 TABLET BY MOUTH TWICE DAILY active Not Available Not Available No t Available Farxiga 10 mg tablet TAKE 1 TABLET BY MOUTH ONCE DAILY active Not Available Not Available No t Available Anoro Ellipta 62.5 mcg-25 mcg/actuati on powder for inhalation INHALE 1 PUFF BY MOUTH EVERY 24 HOURS active Not Available Not Available No t Available Entresto 49 mg-51 mg tablet TAKE 1 TABLET BY MOUTH TWICE DAILY active Not Available Not Available No t Available Entresto 24 mg-26 mg tablet TAKE 1 TABLET BY MOUTH TWICE DAILY 04/19 completed Not Available Not Available Not Available bupropion HCl 150 mg tablet,12 hr sustained-r elease(smok ing deterrent) TAKE 1 TABLET BY MOUTH DAILY FOR 3 DAYS THEN 1 TABLET BY MOUTH 2 TIMES PER DAY 04/19 completed Not Available Not Available Not Available Durolane 60 mg/3 mL intra-artic ular syringe active Not Available Not Available Not Available Ozempic 1 mg/dose (4 mg/3 mL) subcutaneou s pen injector INJECT 1 MG SUBCUTANE OUSLY ONCE A WEEK 01/04 completed Not Available Not Available Not Available Ozempic 2 mg/dose (8 mg/3 mL) subcutaneou s pen injector INJECT 2 MG SUBCUTANE OUSLY ONCE A WEEK active Not Available Not Available No t Available Mounjaro 7.5 mg/0.5 mL subcutaneou s pen injector INJECT 7.5 MG SUBCUTANE OUSLY ONCE A WEEK active Not Available Not Available No t Available Mounjaro 5 mg/0.5 mL subcutaneou s pen injector INJECT 5 MG SUBCUTANE OUSLY ONCE A WEEK active Not Available Not Available No t Available Mounjaro 15 mg/0.5 mL subcutaneou s pen injector INJECT 1 PEN SUBCUTANE OUSLY ONCE A WEEK active Not Available Not Available No t Available Mounjaro 10 mg/0.5 mL subcutaneou s pen injector INJECT 1 PEN SUBCUTANE OUSLY ONCE A WEEK active Not Available Not Available No t Available Mounjaro 12.5 mg/0.5 mL subcutaneou s pen injector INJECT 1 PEN SUBCUTANE OUSLY ONCE A WEEK active Not Available Not Available No t Available Mounjaro 2.5 mg/0.5 mL subcutaneou s pen injector INJECT 2.5 MG SUBCUTANE OUSLY ONCE A WEEK 10/08 completed Not Available Not Available Not Available Ozempic 0.25 mg or 0.5 mg (2 mg/3 mL) subcutaneou s pen injector 0.5 MG SUBCUTANE OUSLY WEEKLY FOR 4 WEEKS 01/04 completed Not Available Not Available Not Available Vitals Date Recorded Body height Body mass index (BMI) Body weight Heart rate Respiratory rate Oxygen saturation Oxygen saturation in Arterial blood by Pulse oximetry Provider Name and Address Organization Details Last Updated DateTime 5 185.42 cm 46.2 kg/m2 140255. 33 g 89 /min 14 /min 98 % 98 % Danielle [facility] 5 16:34:26 Date Recorded Body height Heart rate Respiratory rate Body temperature Oxygen saturation Oxygen saturation in Arterial blood by Pulse oximetry Systolic And Diastolic Provider Name and Address Organization Details Last Updated DateTime 5 185.42 cm 73 /min 16 /min 97.9 [degF] 96 % 96 % 118/61 mm[Hg] Nicole Reagan [employer] 5 11:22:48 Date Recorded Body height Body mass index (BMI) Body weight Provider Name and Address Organization Details Last Updated DateTime 01/31/2025 185.42 cm 46.2 kg/m2 115315.33 g Danielle Guarnic [employer] 01/31/2025 14:15:18 Date Recorded Body height Body mass index (BMI) Body weight Heart rate Respiratory rate Oxygen saturation Oxygen saturation in Arterial blood by Pulse oximetry Provider Name and Address Organization Details Last Updated DateTime 5 185.42 cm 46.2 kg/m2 059211. 33 g 89 /min 14 /min 98 % 98 % Danielle Baljit [employer] 5 14:06:39 Date Recorded Body height Body mass index (BMI) Body weight Heart rate Respiratory rate Oxygen saturation Oxygen saturation in Arterial blood by Pulse oximetry Systolic And Diastolic Provider Name and Address Organization Details Last Updated DateTime 4 185.42 cm 46.2 kg/m2 738972. 33 g 86 /min 14 /min 98 % 98 % 129/56 mm[Hg] Danielle [facility] 4 14:57:57 Social History None recorded. Functional Status None recorded. Mental Status None recorded. Family History Relationship Description Onset Age of this Age Resolved Age Notes LastModified by Organization Details LastModified Time Father Heart disease sofia Not available 06/24 16:00:32 Medical History Condition Response OBESITY Y HIGH CHOLESTEROL / HYPERLIPIDEMIA Y Past Encounters Encounter ID Performer Location Encounter Start Date Encounter Closed Date Diagnosis/Indication Diagnosis SNOMED-CT Code Diagnosis ICD10 Code Diagnosis Note [id number] [facility] [place] [address] [place] [address] 01/12/2021 00:00:00 01/12/2021 13:57:16 [id number] [facility] [place] [address] [place] [address] 05/11/2021 00:00:00 05/11/2021 14:36:38 [id number] [facility] [place] [address] [place] [address] 09/07/2021 00:00:00 09/07/2021 14:42:38 [id number] [facility] [place] [address] [place] [address] 12/28/2021 00:00:00 12/29/2021 13:27:29 [id number] [facility] [place] [address] [place] [address] 03/29/2022 00:00:00 03/29/2022 11:22:06 [id number] [facility] [place] [address] [place] [address] 07/01/2022 00:00:00 07/01/2022 13:00:18 [id number] [facility] [place] [address] [place] [address] 09/30/2022 00:00:00 09/30/2022 13:26:31 [id number] Weston Kingsley DPM [facility] [place] [address] [place] [address] 12/27/2022 11:14:36 12/28/2022 15:04:37 Dystrophia unguium 37851441 L60.3 Nails 1 through 10 were debrided with sharp mechanical debridemen t without incident. Nails were debrided and greater than 50% length and thickness where needed. Peripheral venous insufficiency 20624548 I87.2 recommend compressio n stockings Unable to cut own toenails 737577453 Z74.1 Secondary to obesity and venous insufficie ncy legs [id number] Weston Kingsley DPM [facility] [place] [address] [facility] [address] [place] [address] 04/04/2023 13:58:32 04/04/2023 14:31:20 Dystrophia unguium 58886878 L60.3 Nails 1 through 10 were debrided with sharp mechanical debridemen t without incident. Nails were debrided and greater than 50% length and thickness where needed. Unable to cut own toenails 779228651 Z74.1 Secondary to obesity and venous insufficie ncy legs [id number] Weston Kingsley DPM [facility] [place] [address] [place] [address] 07/07/2023 14:29:08 07/07/2023 15:56:43 Dystrophia unguium 46426298 L60.3 Nails 1 through 10 were debrided with sharp mechanical debridemen t without incident. Nails were debrided and greater than 50% length and thickness where needed. Unable to cut own toenails 641401805 Z74.1 Secondary to obesity and venous insufficie ncy legs Peripheral venous insufficiency 52875018 I87.2 recommend compressio n stockings daily Blister of lower leg without infection 71190965 S80.822A educated on wound careRecomm end wash area with Hibiclens reduce bioburden and continued infectionr ecommend chronic compressio nfollow-up in 2 weeks [id number] Weston Kingsley DPM [facility] [place] [address] [place] [address] 10/06/2023 13:54:41 10/06/2023 15:00:17 Dystrophia unguium 53485798 L60.3 Nails 1 through 10 were debrided with sharp mechanical debridemen t without incident. Nails were debrided and greater than 50% length and thickness where needed. Peripheral venous insufficiency 99549881 I87.2 recommend compressio n stockings daily Pain in toe 789216205 M7 9.674 M79.675 secondary to nails Unable to cut own toenails 145655032 Z74.1 Secondary to obesity and venous insufficie ncy legs [id number] Weston Kingsley DPM [facility] [place] [address] [facility] [address] [place] [address] 01/05/2024 13:54:48 01/05/2024 14:30:51 Dystrophia unguium 83974744 L60.3 Nails 1 through 10 were debrided with sharp mechanical debridemen t without incident. Nails were debrided and greater than 50% length and thickness where needed. Peripheral venous insufficiency 87339048 I87.2 recommend compressio n stockings daily Unable to cut own toenails 980495187 Z74.1 Secondary to obesity and venous insufficie ncy legs Callosity on toe 1134723 01 L84 debrided without incidentof floading to prevent woundsChec k feet daily Hammer toe 506355081 M20 .41 educated on condition and treatment options, patient denies surgery at this time he would like to continue with conservati ve offloading [id number] Weston Kingsley DPM [facility] [place] [address] [facility] [address] [place] [address] 04/19/2024 13:57:21 04/19/2024 14:36:32 Pain in toe 935450853 M79.674 M79.675 secondary to nails Peripheral venous insufficiency 06138406 I87.2 recommend compressio n stockings daily- not wearing daily Dystrophia unguium 92175 009 L60.3 Nails 1 through 10 were debrided with sharp mechanical debridemen t without incident. Nails were debrided and greater than 50% length and thickness where needed. Blister of lower leg without infection 92139032 S80.822A left lower legkeep the area clean covered and dry until healedMoni tor for signs of infection at present seek medical attention immediatel yFollow-up as needed recommend continuing chronic compressio n to prevent recurrence and worsening of wound [id number] Weston Kingsley DPM [facility] [place] [address] [place] [address] 07/09/2024 15:50:15 07/10/2024 12:03:33 Pain in toe 007614282 M79.674 M79.675 secondary to nails Peripheral venous insufficiency 94882046 I87.2 recommend compressio n stockings daily- not wearing daily Obesity 276182868 E66.9 discussed exercise options- currently utilizing pool activities which will be the most supportive and less pressure on his joints Dystrophia unguium 03296 009 L60.3 Nails 1 through 10 were debrided with sharp mechanical debridemen t without incident. Nails were debrided and greater than 50% length and thickness where needed. [id number] Weston Kingsley DPM [facility] [place] [address] [place] [address] 10/08/2024 14:40:33 10/19/2024 09:04:36 Pain in toe 037090691 M79.674 M79.675 secondary to nails Ingrowing toenail 574875 009 L60.0 right great toenail medial cornerSlan t back procedure performed todayTreat ment options reviewed in detail- patient elects to continue with conservati ve therapyrec ommend partial matrixecto my if continues to be problemati c Dystrophia unguium 86246 009 L60.3 Nails 1 through 10 were debrided with sharp mechanical debridemen t without incident. Nails were debrided and greater than 50% length and thickness where needed. [id number] Weston Kingsley DPM [facility] [place] [address] [place] [address] 01/17/2025 16:30:29 01/18/2025 13:26:54 Callosity on toe 941221843 L84 distal right second toedebride d without incidentof floading to prevent woundsChec k feet daily Hammer toe [id number] M20 .41 right 2nd toediscuss ed treatment optionsat this point recommend conservati ve therapy Bilateral acquired mallet toe [id number] M20.5X1 M20.5X2 bilateral 3rd toe and left secondas above Dystrophia unguium 47432 009 L60.3 Nails 1 through 10 were debrided with sharp mechanical debridemen t without incident. Nails were debrided and greater than 50% length and thickness where needed. Peripheral venous insufficiency [id number] I87.2 recommend compressio n stockings daily- not wearing daily [id number] Weston Kingsley DPM [facility] [address] [place] [address] 01/22/2025 11:13:36 01/23/2025 09:52:58 Blister of toe with infection [id number] L08.9 wound care dailybetad ine wet-to-dry dressings dailyOfflo ading at all timesfollo w-up 1 week Hammer toe [id number] M20 .41 right 2nd toe and thirddiscu ssed treatment optionsd/c toe cap, disp toe crest pad rightonce healed wound will need surgical eval for hammertoe surgery Ulcer of toe [id number] L 97.509 right second toedaily dressing- monitor for worsening signs of infection at present seek medical attention immediatel yDaily dressings with Betadine wet-to-dry Follow-up in 1 week [id number] Weston Kingsley DPM [facility] [place] [address] [facility] [address] [place] [address] 01/31/2025 14:10:19 02/19/2025 11:57:37 Callosity on toe [id number] L84 distal right second toedebride d without incidentof floading to prevent woundsChec k feet daily Hammer toe [id number] M20 .41 right 2nd toe and thirddiscu ssed treatment optionsd/c toe cap, disp toe crest pad right- continuere commend sizing up 1 size on the crest pad for more elevationm onitor for wounds if present seek medical attention immediatel yPatient is scheduled for stress test in March 05, patient will return for surgical clearance prior to stress testplan hammertoe arthroplas ty right 2nd and 3rd toes [id number] Weston Kingsley DPM [facility] [place] [address] [place] [address] 02/28/2025 13:48:24 03/28/2025 15:57:58 Hammer toe [id number] M20.41 right 2nd toe and thirddiscu ssed treatment options- plan obtain surgical clearanceP lino surgery- arthroplas ty right 2nd and 3rd toes with pinningcon tinue toe crest pad right-radha tor for wounds if present seek medical attention immediatel ywants to have surgery in Aprilfollow -up in April Health Concerns Section Related Observation LastModified by Organization Detai ls LastModified Time None Recorded Concern Status LastModified by Organization Details LastModified Time None Recorded Advance Directives Directive None Recorded Payers Insurance Date Sequence Insurance Name Policy Number Policy Peck Covered Member ID Peck Member ID Guarantor Name 07/09/2024 1 [place] Naveen Yeh [id number] Naveen Yeh 07/09/2024 2 AETNA (MEDICARE SUPPLEMENT) Naveen Yeh [id number] Naveen Yeh 04/26/2025 1 AETNA - [place] (MEDICARE REPLACEMENT/ ADVANTAGE - HMO) [id number] Naveen Yeh [id number] Naveen Yeh Notes Date Note Type Note Provider Name and Address Organization Details Recorded Time 10/08/2024 text/html . Patient is a 69-year-old male who presents the office with complaints of ingrown toenail to the right great toe. Patient states the medial corners been causing him problems. Patient states his did attempt to cut out part of the nail corner which he states did help but he continues have mild sharp pain. Patient denies any redness or drainage. Patient has severely incurvated toenails of both great toes he was reviewed treatment options in detail I did recommend surgical matrixectomy of the nail corners at this time he states he would like to continue with conservative therapy and see how the nails do. Patient denies any other complaints. Weston Kingsley DPM [address], [address], [place], [address], [employer] 10/08/2024 15:26:16 01/17/2025 text/html . Patient is a 70-year-old male who presents the office with complaints pain in his toes worse to the right 2nd toe. Patient has plantar flexion contractures of his toes worse to the 2nd and 3rd bilaterally. Patient states that when he is walking he has pain to the distal aspect worse to the right 2nd due to hammertoe deformity. Patient states his toenails are also elongated which he can not cut. Patient continues to have paresthesias of the lower extremity as well as venous insufficiency he denies any lower leg wounds or calf pain. Patient denies any other complaints. Weston Kingsley DPM [address], [facility] [address], [place], [address], [employer] 01/17/2025 17:38:47 01/22/2025 text/html . Patient is a 70-year-old male who returns the office for complaints of new wounds of his toes worse to the right 2nd toe. Patient has hammertoe deformities worse to the right 2nd he states that he went and obtained the silicone toe caps states that he subsequently developed blistering to the distal aspect of the toe with redness despite use of the toe caps. I explained to the patient that the hammertoes causing too much pressure which ended up resulting in a wound to the toe. Due to the failed conservative offloading I did recommend that he can try a toe crest pad so he can keep the toe dressed and allow offloading. He will likely require surgical intervention once the toe wound and infection has resolved. Weston Kingsley DPM [address], [facility] [address], [place], [address], [employer] 01/23/2025 09:43:23 01/31/2025 text/html . Patient is a 70-year-old male who presents the office with complaints of pain to the right foot secondary to callus on his toe he states that the area has become blue in color. Patient denies any open wound. Patient denies any fever, chills, nausea vomiting. Patient states with walking pressure causes thickening of the callus. Patient denies any other complaints. Weston Kingsley DPM [address], [place], [address], [employer] 02/18/2025 09:50:26 02/28/2025 text/html . Patient is a 70-year-old male who returns for follow-up on callusing and history of wounds to the distal tips of his right 2nd and 3rd toes secondary to chronic hammertoe deformities. Patient states that he would like to obtain surgery in early April. Patient denies any new wounds. Patient denies any other complaints. Weston Kingsley DPM [address], [place], [address], [employer] 03/27/2025 12:12:25
--- OUTSIDE RECORDS SUMMARY | 2025-05-06 15:30 | XMS_ITS | Clinical Summary ---
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 Gender Identity Not on file Sexual Orientation Not on file Plan of Treatment Health Maintenance Due Date Last Done Comments Hepatitis C Virus (HCV) Screening 1955 TdaP Immunization 1955 Colonoscopy 01/07/2001 Colorectal Cancer Screening 01/07/2001 Cologuard 01/07/2006 Immunochemical Fecal Occult Blood 01/07/2006 Pneumococcal Immunization (5 0+ years) (1 of 1 - PCV) 01/07/2006 Zoster Immunization (1 of 2) 01/07/2006 PSA Discussion 01/07/2011 Influenza Immunization (#1) 2024 SARS-COV-2 Immunization ( - season) 2024 Respiratory Syncytial Virus (RSV) Immunization (Adult) (1 - 1-dose 75+ series) 01/07/2031 Hepatitis B Immunization Aged Out No longer eligible based on patient's age to complete this topic Meningococcal Immunization (ACWY) Aged Out No longer eligible based on patient's age to complete this topic Rotavirus Immunization Aged Out No lo nger eligible based on patient's age to complete this topic
--- OUTSIDE RECORDS SUMMARY | 2025-05-06 15:30 | XMS_ITS | Referral Summary ---
Author Organization [facility] [address] Address [address] [place] [address] Care Team Providers Care Inside Sales Specialist Name Role Phone Yusuf Jules MD Primary Care Provider Shantanu Luque MD Unavailable [phone] Encounters Date Type Department Care Team Description 04/29/2025 Orders Only [facility] [address] [facility] 1st Floor [address] [place] [address] Paris Roldan RMA 04/29/2025 2:45 PM CDT Ancillary Procedure [facility] [address] [facility] 1st Floor [address] [place] [address] Acute pain of right knee; Primary osteoarthritis of right knee 04/29/2025 3:00 PM CDT Procedure visit [facility] [address] [facility] 1st [address] [place] [address] Cullen Turcios MD Primary osteoarthritis of right knee (Primary Dx); Acute pain of right knee 03/21/2025 Orders Only [facility] [address] [facility] 2nd Floor [address] [place] [address] Lia Jansen NP 03/19/2025 Telephone [facility] [address] [place] [address] 2nd Floor [address] [place] [address] Cullen Turcios MD 03/19/2025 11:25 AM CDT Ancillary Procedure [facility] [address] [facility] 1st Floor [address] [place] [address] 03/06/2025 Telephone [facility] Card[facility] [address] [facility] [address] [place] [address] Shantanu Luque MD Med Refill 03/05/2025 10:00 AM CDT Ancillary Procedure [facility] [address] [facility] [address] [place] [address] Presence of stent in coronary artery; Cardiomyopathy, ischemic 03/05/2025 2:45 PM CDT Office Visit [facility] [address] [place] [address] [address] [place] [address] Shantanu Luque MD 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 (Primary Dx); Mixed hyperlipidemia 02/25/2025 Orders Only [facility] [address] [place] [address] [address] [place] [address] Maday Vargas MD from Last 3 Months Allergies No known active allergies Medications multivitamin [...] application topically as needed for rash 08/29/20 Active polyethylene glycol (MIRALAX) 17 gram packet [...] Obesity 07/10/2024 Cardiac resynchronization th erapy defibrillator (MENTAL HEALTH PROGRAM SPECIALIST-D) in place 05/29/2024 Callus of toe 01/05/2024 Hammer toe 01/05/2024 Pain in toe 10/05/2023 Blister of lower leg without infection 3 Dystrophia unguium 12/26/2022 Peripheral venous insufficiency 12/26/2022 Persistent atrial fibrillation 06/15/2022 Eczema 09/06/2021 Paroxysmal ventricular tachycardia 04/11/2021 SOB (shortness of breath) 03/06/2021 Overview (03/06/2021): Added automatically from request for surgery [id number] Tobacco abuse 02/11/2021 Assessment & Plan (02/12/2021 [...] Plan (01/29/2022 11:05 AM CDT): -Admitted for MENTAL HEALTH PROGRAM SPECIALIST-D upgrade -Follows with Dr. Luque and Dr. Vargas -s/p Vanc x 24 hours, Bed rest -CXR in AM without significant abnormality. -Apixaban to start 02/01 for aflutter post procedure -Cont GDMT: Carvedilol 6.25mg BID, Entresto BID, Aldactone 25 -Cont home Farxiga 10 and Lasix 80 Assessment & Plan (01/28/2022 4:59 PM CDT): -Admitted for MENTAL HEALTH PROGRAM SPECIALIST-D upgrade -Follows with Dr. Luque and Dr. 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 Gender Identity Not on file Sexual Orientation Not on file Last Filed Vital Signs Vital Sign Reading Time Taken Comments Blood Pressure 134/94 03/05/2025 11:38 AM CDT Pulse 73 03/05/2025 11:38 AM CDT Temperature 36.7 C (98.1 F) 03/05/2025 11:38 AM CDT Respiratory Rate 19 06/17/2022 8:40 AM CDT Oxygen Saturation 95% 08/30/2024 1:53 PM SCHOOL FUNDRAISING DIRECTOR Inhaled Oxygen Concentration - - Weight 154.2 kg (340 lb) 03/05/2025 11:38 AM CDT Height 182.9 cm (6') 03/05/2025 11:38 AM CDT Body Mass Index 46.11 03/05/2025 11:38 AM CDT Plan of Treatment Not on file Medical Devices Implanted Type Area Member Services Coordinator Device Identifier Shelf Expiration Date Model / Serial / Lot Daig Gill/[employer] [id number] Angio-Seal Evolution 6fr .035in Guidewire Bypass Tube Suture - [id number] - [id number] Implanted:Qty: 1 on 03/25/2021 by Dejon Tesfaye MD at [facility] Collagen [employer]umo [employer] Gill 10/23/2021 [id number] / [id number] / [id number] [employer] [id number] Defib Cardiac [id number] [place] Hf Df4 Is-4 Is-1 Cnctr - [id number] - [id number] Implanted:Qty: 1 on 01/28/2022 by Maday Vargas MD at [facility] ICD Left: Chest [employer] 11/23/2023 [id number] / [id number] / [employer] Inc Durata 6.8fr 65cm True Bipolar Active Fixation Extendable 1 Coil 7122q/65 - [id number] - [id number] Implanted:Qty: 1 on 01/28/2022 by Maday Vargas MD at [facility] Lead Left: Heart [employer] Inc 06/23/2024 7122Q/65 / [id number] / [employer] Inc Quartet 92cm Quadripolar Left Ventricle Lead Pacing 1458q/92 - [id number] - [id number] Implanted:Qty: 1 on 01/28/2022 by Maday Vargas MD at [facility] Lead Left: Heart [employer] Inc 01/22/2024 1458Q/92 / [id number] / [id number] Absorbable Antibacterial Envelope-Large 3.3x2.9in [id number] - [id number] Implanted:Qty: 1 on 01/28/2022 by Maday Vargas MD at [facility] Other - see comments Left: Chest Medtronic Inc 11/08/2022 [id number] / / [id number] [employer] Inc Terminal Quadripolar Is-1 Cap Lead 4033 - [id number] Implanted:Qty: 1 on 01/28/2022 by Maday Vargas MD at [facility] Other - see comments Left: Heart [employer] Sc Inc 08/20/2024 4033 / / [id number] Description:Capped original pacemaker RV lead Pacemaker- [id number] Implanted:2017 by Carlo Barbour MD (Quantity not on file) Pacemaker Chest [employer] Second Degree AVB ASSURITY MRI 2272 / [id number] / Medtronic Usa Inc X [id number] Resolute [place] 3.5mm 2.1-2.7fr 30mm 140cm Rapid Exchange - [id number] - [id number] Implanted:Qty: 1 on 03/25/2021 by Dejon Tesfaye MD at [facility] Stent Medtronic Inc 12/03/2022 [id number] 5030 UX / [id number] / [id number] Procedures Procedure Name Priority Date/Time Associated Diagnosis Comments RI ARTHROCENTESIS ASPIR&/INJ MAJOR JT/BURSA W/US Routine 04/29/2025 [...] 4:11 PM CDT 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 Please refer to the provider's procedure/OR operative note for results. us Cullen Turcios MD POCUS ORDERABLES Final R esult Performing Organization Address [facility] de Phone Number [facility] * POCUS ASP/INJ MAJOR JOINT (03/19/2025 11:22 AM CDT) Narrative [facility] - 03/19/2025 11:22 AM CDT This procedure was performed and interpreted by the provider. Please refer to the provider's procedure/OR operative note for results. us Cullen Turcios MD POCUS ORDERABLES Final R esult Performing Organization Address [facility] Co de Phone Number RAD[facility]PACS[facility] * NM MPI SPECT (Rest and/or Stress) Multiple Studies (03/05/2025 11:48 AM CDT) Anatomical Region Laterality Modality Body N/A Electrocardiogra phy Narrative 03/06/2025 8:49 AM CDT Table formatting from the original result was not included. [facility] [address] [address] Nuclear MPI Pharmaceutical Study Patient Name: Miguel Yeh Gender: male : 1955 Date of Study: [...] perfusion imaging is abnormal. Large inferior transmural AL of severe intensity. Large inferolateral and apical nontransmural AL of severe intensity. No ischemia noted. LV [...] by Shantanu Luque MD. us Nika Camacho SUPERVISOR [employer] IMG NM PROCEDURES Final Resul t * DEVICE CHECK - REMOTE (02/25/2025 5:23 AM CDT) Anatomical Region Laterality Modality Other 02/25/2025 5:23 AM CDT Narrative 02/28/2025 8:13 AM CDT Interpretation Summary: Battery and Leads (BL) Normal parameters noted on battery and lead(s) --- 3.7 years remaining (this is an estimate based on prior usage) Presenting Rhythm (RI) Atrial Pacing-BiVentricular Pacing (AP-BiVP) --- rate 60 [...] estimate based on prior usage) Presenting Rhythm (RI) Atrial Pacing-BiVentricular Pacing (AP-BiVP) --- rate 60 Arrhythmic events (AE) No new arrhythmic events in monitoring period Anticoagulation (AC) Patient on anticoagulant therapy Patient prescribed Apixaban (Eliquis) Transmission Information (TI) Device Summary Report Maday Vargas MD [facility] CARDIAC SERVICES PROCEDURES Final Result * (ABNORMAL) eGFR (01/28/2022 9:05 AM CDT) eGFR 74(L) 90 - 130 mL/min/1. 73 m2 [facility] Comment: Interpretive Data Reference Interval Normal [...] 9:05 AM CDT 01/28/2022 9:23 AM CDT Jana Joseph NP LAB BLOOD ORDERABLES Final Re sult [facility] [place] [address] * (ABNORMAL) Hemoglobin A1c (03/27/2021 9:35 AM CDT) Hgb A1C 6.0(H) 4.0 - 5.6 % [facility] Estimated Average Glucose 126 mg/dL [facility] Comment: The ADA recommends reporting an estimated [...] LAB BLOOD ORDERABLES Final Res ult [facility] [place] [address] * POCT lipid panel (07/02/2020 4:11 PM [...] Most Recently Relevant to Health Maintenance Insurance [facility] MEDICARE COMMERCIAL GENERIC AETNA AET SENIOR SUPPLEMENT AET MEDICARE GOLD MEDICARE AET SENIOR SUPPLEMENT AETNA MEDICARE GOLD AETNA SENIOR SUPPLEMENT Advance Directives For more information, please contact: [phone] Documents on File Type Date Recorded Patient Actuarial Director Expl anation ADVANCE DIRECTIVE 02/01/2022 10:56 AM GERONIMO R OF SUPERVISOR [employer] * Full Code (Latest Code Status on [...] 7:54 PM 02/13/2021 8:27 PM Care Teams Inside Sales Specialist Relationship Specialty Start Date End Date Yusuf Jules MD [address] [place] [address] PCP - General Family Medicine 02/10/21 Shantanu Luque MD [address] [facility] [address] [place] [address] Consulting Physician Cardiology 02/13/21
--- OUTSIDE RECORDS SUMMARY | 2025-05-06 15:30 | XMS_ITS | Encounter Summary ---
Author Organization [facility] Address [address] [place] [address] Phone Care Team Providers Care Transport Driver Name Role Phone Yusuf Jules MD Primary Care Provider Unknown, Notinfile Primary Care Provider Unavail able Yusuf Jules MD Primary Care Provider Shantanu Luque MD Unavailable [phone] Encounter Details Date Type Department Care Team (Latest Contact Info) Description 07/17/2020 Orders Only [facility] Scanning, Provider Social History Tobacco Use Types Packs/Day Years Used Date Smoking Tobacco: Former Cigarettes Q uit: 02/15/2019 Smokeless Tobacco: Never Alcohol Use Standard Drinks/Week Comments Yes 1 (1 standard drink = 0.6 oz pur e alcohol) occassionally Sex and Gender Information Value Date Recorded Sex Assigned at Not on file 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 Gender Identity Not on file Sexual Orientation Not on file documented as of this encounter Plan of Treatment Not on file documented as of this encounter Procedures Procedure Name Priority Date/Time Associated Diagnosis Comments CARDIOLOGY DOCUMENT SCAN 07/17/2020 documented in this encounter Results * SCAN - CARDIOLOGY (07/17/2020) Anatomical Region Laterality Modality Other us Provider Scanning [facility] PROCEDURES Final Result documented in this encounter Visit Diagnoses Not on filedocumented in this encounter Additional Health Concerns Infection Onset Date Last Indicated Resolved Time COVID19 04/06/2022 04/06/2022 04/16/2022 3:06 AM CDT documented as of this encounter Care Teams Transport Driver Relationship Specialty Start Date End Date Yusuf Jules MD [address] [place] [address] PCP - General Family Medicine 09/08/17 08/04/20 Unknown, Notinfile PCP - General 08/05/20 02/09/21 Yusuf Jules MD [address] [place] [address] PCP - General Family Medicine 02/10/21 Shantanu Luque MD [address] [facility] [address] [place] [address] Consulting Physician Cardiology 02/13/21 documented as of this encounter
== END 2025-05-06 15:25 | disposition home or self-care (01) ==
PROVIDERS: PCP Family Medicine; Visit Provider Nurse Practitioner Family
DX: Z12.2 Encounter for screening for malignant neoplasm of respiratory organs (principal); Z87.891 Personal history of nicotine dependence
CPT/HCPCS: 71271